=== PATIENT | male | born 1940 | race Caucasian/White ===

== ENCOUNTER 2019-05-23 15:51 | Inpatient (IN) | payer MEDICARE, OTHER, SELFPAY ==
[2019-05-23] VITALS (33 sets, daily range): BP systolic 142–175; BP diastolic 50–93; PULSE 77–114; RESP 4–30; TEMP 37.1–37.4; O2SAT 91–96
--- NOTE | 2019-05-23 15:56 | ED.GENADUL_ITS ---
Discharge Plan Disposition Condition: Stable Discharge Details Chief Complaint: SOB Admit Date/Time: 05/23/19 17:57 Admit Provider: Bruce Henriquez Attending Provider: Sarina Harris Primary Care Provider: Josiah Alamo ED Provider: Maile Villavicencio Discharge Instructions Activity:: Activity as Tolerated Equipment/Supplies:: No Equipment Needed Diet:: Low Sodium Discharge Orders Discharge Orders: Discharge Order (Routine); Ordered 05/26/19 Ordered By: Sarina Harris Discharge Data Discharge Date/Time-TO BE ENTERED AT DEPARTURE: 05/23/19 18:59 Medical Decision Making Patient is a pleasant 78-year-old male with past medical history of alcohol abuse, BPH, COPD, hypertension, hypercholesterolemia, accompanied by and daughter, with chief complaint of shortness of breath. Patient has had cough and congestion x4 days. States the cough is particularly worse at night. Reports last night she he had some mild shortness of breath. However, he woke this morning feeling severely short of breath and this persisted throughout the course the day. He states that he has not been able to get out of his chair throughout the course the day secondary to the shortness of breath. Pursed lip breathing when came in today. Denies any fevers. No chills. Denies any GI upset. No congestion or other URI symptoms. No recent travel. No known sick contacts. Denies any chest pain. ECG reviewed by Dr. Odom. Patient in sinus tachycardia with rate of 109. Oaccassional premature ventricular contractions. ST depression less than 1 mm in V5 and V4. No previous for comparison. On exam, patient is an obese male. He has diffuse expiratory wheezing and has diminished airflow in the bilateral lung bases. He has a cough that is progressive and worsening, I am concerned for pneumonia and with the shortness of breath and wheezing, I am concerned for COPD exacerbation worsening symptoms. Plan for chest x-ray, laboratory evaluation. We will begin the patient steroids and give nebulizer treatment. Patient does feel slightly improved after nebulizer. He is received 125 mg of Solu-Medrol. Labs reviewed. Patient is awake 18.7. Troponin is within normal limits. BNP is within normal limits. X-ray reviewed by myself, I am concerned for right- sided pneumonia. Discussed disposition with the patient and his family. Given the level of weakness shortness of breath the patient's been experiencing at home, they did not feel that he is a candidate to be able to be discharged home at this time. Plan to consult with hospitalist regarding admission for COPD exacerbation and acute pneumonia. Patient is receiving IV Levaquin. He is allergic to penicillin. Hospitalist agrees to admission. Discussed this plan with patient and family, they are in agreement HPI General Mode of arrival: wheelchair . Date/Time Provider Initiated Documentation: 05/23/19 15:56 . Limitations to Documentation: no limitations . Information obtained by: patient, family ( and daughter) and RN notes reviewed . History of Present Illness 78 year old M presents to the emergency department with the chief complaint of SOB, described as moderate, Patient started experiencing this day(s) and it has been constant. Immobilization improves symptom(s), Movement worsens symptoms (reports SOB worse with exertion) . Patient notes cough (x 4 days), malaise, shortness of breath and weakness (generalized, difficulty getting around their home); denies chest pain, diaphoresis, fever/chills, headaches, loss of appetite and nausea/vomiting. Patient did receive the following treatments prior to arrival, none Related Data Home Medications Medication Instructions Recorded Confirmed Centrum Silver Tablet 1 tab PO DAILY 08/21/12 05/23/19 albuterol sulfate [ProAir HFA] 2 puff INHALATION QID PRN #3 ea 12/03/17 05/23/19 amlodipine 5 mg tablet 5 mg PO DAILY #90 tab-cap 10/31/18 05/23/19 cholecalciferol (vitamin D3) 10 400 unit PO DAILY 10/31/18 05/23/19 mcg (400 unit) tablet albuterol sulfate 1.25 mg/3 mL 1.25 mg INHALATION QID PRN #90 ml 12/05/18 05/23/19 solution for nebulization fluticasone propionate 230 2 puff INHALATION BID #12 gm 04/29/19 05/23/19 mcg-salmeterol 21 mcg/actuation HFA inhaler Atrovent HFA 2 puff INHALATION QID #3 inhaler 05/26/19 05/23/19 benzonatate 100 mg PO TID PRN PRN #30 cap 05/26/19 cyanocobalamin (vitamin B-12) 500 mcg PO DAILY #30 tab 01/06/20 [Vitamin B-12] guaifenesin [Mucinex] 600 mg PO BID PRN PRN #20 tab 05/26/19 ipratropium-albuterol 3 ml UPD Q4H PRN PRN #90 ml 05/26/19 levofloxacin 750 mg PO DAILY #4 tab 05/26/19 pantoprazole 40 mg PO DAILY@0730 #10 tab 05/26/19 prednisone See Rx Instructions .ROUTE 05/26/19 .COMPLEX #10 tab Previous Rx's Medication Instructions Recorded amlodipine 5 mg tablet 5 mg PO DAILY #90 tab-cap 10/31/18 albuterol sulfate 1.25 mg/3 mL 1.25 mg INHALATION QID PRN #90 ml 12/05/18 solution for nebulization fluticasone propionate 230 2 puff INHALATION BID #12 gm 04/29/19 mcg-salmeterol 21 mcg/actuation HFA inhaler Atrovent HFA 2 puff INHALATION QID #3 inhaler 05/26/19 benzonatate 100 mg PO TID PRN PRN #30 cap 05/26/19 cyanocobalamin (vitamin B-12) 500 mcg PO DAILY #30 tab 05/26/19 [Vitamin B-12] guaifenesin [Mucinex] 600 mg PO BID PRN PRN #20 tab 05/26/19 ipratropium-albuterol 3 ml UPD Q4H PRN PRN #90 ml 05/26/19 levofloxacin 750 mg PO DAILY #4 tab 05/26/19 pantoprazole 40 mg PO DAILY@0730 #10 tab 05/26/19 prednisone See Rx Instructions .ROUTE 05/26/19 .COMPLEX #10 tab Allergies Allergy/AdvReac Type Severity Reaction Status Date / Time Penicillins Allergy Unknown Unverified 05/23/19 16:11 venom-honey bee Allergy Unknown Unverified 05/23/19 16:11 hydrochlorothiazide AdvReac Intermediate Cough Unverified 05/23/19 16:11 DOG DANDER Allergy Unknown Uncoded 05/23/19 16:11 DUST Allergy Unknown Uncoded 05/23/19 16:11 Review of Systems Constitutional Constitutional: Reports as per HPI, Denies chills, Denies fever(s), Denies headache(s), Denies lethargy, Denies poor appetite and Reports weakness Eyes Eyes: Denies change in vision ENT Ears, Nose, Mouth, and Throat: Denies dizziness and Denies headache(s) Cardiovascular Cardiovascular: Reports as per HPI, Denies chest pain, Denies chest pain at rest, Denies chest pain with activity, Denies leg edema, Denies lightheadedness, Denies radiating jaw, neck or arm pain, Denies palpitations, Reports dyspnea and Reports dyspnea on exertion Respiratory Respiratory: Reports as per HPI, Denies chest congestion, Reports cough, Denies hemoptysis, Denies pain on inspiration, Denies pain with cough, Reports dyspnea, Reports dyspnea on exertion and Denies wheezing Gastrointestinal Gastrointestinal: Reports as per HPI, Denies abdominal pain, Denies diarrhea, Denies nausea and Denies vomiting Genitourinary Genitourinary: Denies system reviewed and no additional complaints, except as docu (denies change in urinary habits) Musculoskeletal Musculoskeletal: Reports as per HPI and Denies back pain Integumentary/Breasts Skin/Breast: Reports as per HPI and Denies rash Neurologic Neurologic: Reports as per HPI, Denies dizziness, Denies headache(s) and Reports weakness Endocrine Endocrine: Denies palpitations Allergic/Immunologic Allergic/Immunologic: Denies wheezing PFSH Medical History BPH loc w/o ur obs/LUTS (Acute 09/24/15) Cataract (Acute 01/23/14) Chronic obstructive lung disease (Acute) ASTHMA/COPD Essential hypertension (Acute 03/20/13) Hemorrhoids (Inactive) Hypercholesterolemia (Acute) Osteoarthritis (Acute) BILATERAL HIP Sexual function problem (Acute) Surgical History Colonoscopy - MAC (~1999) NEG Extraction of cataract 01/23/14; DR. UGARTE; RIGHT Family History Mother Personal history of malignant neoplasm INTESTINAL Father Diabetes Essential hypertension Heart disease Sister Personal history of malignant neoplasm BRAIN Brother No problems noted. Social History Smoking/Tobacco Use Status: Former Tobacco Use Drug use: Never Substance use type: does not use Details: had flu shot for [id number] season feb/nov Do you feel safe at home: Yes Do you feel safe in your relationship?: Yes Exam Const General: cooperative, healthy appearing, comfortable, no acute distress and well developed Nutritional Appearance: well nourished and overweight Orientation: alert, awake and oriented x3 [facility] Head: normal to inspection Ears: hearing grossly normal bilaterally Mouth: moist mucous membranes Chest Chest: normal inspection of the chest, normal palpation of entire chest wall and no crepitus Resp Effort & Inspection: normal respiratory effort, able to speak in complete sentences, pursed lip breathing, no respiratory distress and tachypneic Auscultation: clear to auscultation bilaterally, no rales, no rhonchi and no wheezes Cardio Rate: regular rate Rhythm: regular rhythm Heart Sounds: S1 normal and S2 normal GI Inspection: normal to inspection, no edema and non-distended Palpation: soft, no hepatosplenomegaly, not firm, no guarding, not rigid and nontender Auscultation: normal bowel sounds Back/Spine/Pelvis Back: no CVA tenderness Thoracic/Lumbar Spine: thoracic and lumbar spine normal to inspection Skin General skin exam: no rashes or lesions noted Trauma: no lacerations or abrasions Neuro General: alert, awake and oriented x3 Cognition: normal cognition Speech: speech normal Gait: normal gait Extrem General: normal to inspection, normal capillary refill, no pedal edema, no calf tenderness and normal gait Psych Appearance: grossly normal and well kempt Mental Status: mental status grossly normal Speech and Movement: speech and movement normal
[2019-05-23] MEDS: Albuterol/Ipratropium 3 ML UPD VIAL UPD ×2 (16:13→23:40)
[2019-05-23 16:25] LABS: Abs Immature Grans 0.06 k/cumm (0.0-0.09); Absolute Basophil Count 0.04 k/cumm (0.0-0.2); Absolute Eosinophil Count 0.17 k/cumm (0.0-0.7); Absolute Neutrophil Count 15.87 k/cumm (1.2-6.7); Basophils % 0.2; Eosinophils % 0.9; HCT 45.9 % (40.0-50.0); HGB 15.6 g/dL (13.5-17.5); Immature Grans % 0.3 %; Lymphocytes % 7.9; Mean Corpuscular Hemoglobin 31.4 pg (27.0-33.0); Mean Corpuscular Volume 92.4 fL (80-95); Mean Platelet Volume 9.6 fL (8.0-11.0); Monocytes % 5.9; Neutrophils % 84.8; Platelet Count 182 x1000/uL (130-400); RBC 4.97 m/cumm (4.50-6.00); RBC Distribution Width 13.6 % (11.8-14.1); White Blood Cell Count 18.71 k/cumm (4.4-10.8)
[2019-05-23 16:26] LABS: Absolute Lymphocyte Count 1.48 k/cumm (1.2-3.4)
[2019-05-23] MEDS: methylPREDNISolone SUCC 125 MG VIAL IVP (16:30)
[2019-05-23] MEDS: Normal Saline Flush 10 ML SYR IVP ×2 (16:32→23:40)
[2019-05-23] MEDS: levoFLOXacin 750 MG/150 ML BAG 100 MG IVPB (16:35)
[2019-05-23 16:39] LABS: ALT 25 U/L (16-63); AST 19 U/L (15-37); Albumin 3.6 g/dL (3.4-5.0); Alkaline Phosphatase 60 U/L (46-116); Anion Gap 9.5 mmol/L (3-11); BUN 10 mg/dL (7-18); Bilirubin, Total 0.6 mg/dL (0.2-1.0); CO2 28.5 mmol/L (21.0-32.0); CREATININE 0.77 mg/dL (0.70-1.30); Calcium 9.2 mg/dL (8.5-10.1); Chloride 102 mmol/L (98-107); Glucose 114 mg/dL (74-106); Magnesium 1.8 mg/dL (1.8-2.4); Potassium 3.6 mmol/L (3.5-5.1); Sodium 140 mmol/L (136-145); Total Protein 7.8 g/dL (6.4-8.2)
[2019-05-23 16:40] LABS: Troponin I < 0.05 ng/Ml (<0.06)
[2019-05-23 16:58] LABS: Lactate 1.3 mmol/L (0.6-1.4)
[2019-05-23 16:58] LABS: NT-proBNP 162 pg/mL (<300)
--- NOTE | 2019-05-23 17:03 | DI.RAD_ITS ---
EXAM: XR CHEST 2V PA LATERAL INDICATION: SOB. COMPARISON: CHEST WITHOUT CONTRAST from 09/16/2017 CHEST 2 VIEWS PA,LAT from 09/16/2017 CHEST WITH CONTRAST from 11/26/2017 TECHNIQUE: 2D digital imaging was performed. FINDINGS: Linear densities are noted at both lung bases which could represent atelectasis or scarring versus in filtrates. No effusions are seen. The heart size is normal. IMPRESSION: Bibasilar atelectasis versus infiltrates.
--- NOTE | 2019-05-23 17:40 | DI.VRAD_ITS ---
PROCEDURE INFORMATION: Exam: XR Chest, 2 Views Exam date and time: 05/23/2019 5:08 PM Age: 78 years old Clinical indication: Other: SOB TECHNIQUE: Imaging protocol: XR of the chest Views: 2 views. COMPARISON: CR CHEST 2 VIEWS PA,LAT 09/16/2017 2:51 PM FINDINGS: Lungs: Opacities in the bases may represent atelectasis or pneumonia. Pleural space: Unremarkable. No pleural effusion. No pneumothorax. Heart/Mediastinum: Unremarkable. No cardiomegaly. Bones/joints: Unremarkable. IMPRESSION: Opacities in the bases may represent atelectasis or pneumonia. Dictated and Authenticated by: Bartolome Gill MD. Ordering:DEBORAH Gr MD
--- NOTE | 2019-05-23 17:49 | W.PM.HP.N ---
Date of service: 05/23/19 Time of Service: 17:49 Assessment and Plan Assessment and plan (1) Pneumonia: Status: Acute Assessment and plan: Pneumonia with COPD exacerbation. Will continue antibiotics, steroids and updrafts. usual meds as is otherwise. Reviewed ADs, requests DNR/DNI. History of Present Illness History of Present Illness Chief Complaint: cough, SOB Narrative: 78 male with h/o COPD, former smoker, comes in with 3-4 days cough and 1-2 days SOB. In ER wheezing and tachypnea noted, along with leukocytosis and RLL pneumonitis. Given steroids, updrafts and levaquin 750 IV. States he feels much better, but still far from usual. Admitted for further management. Review of Systems All systems reviewed & are unremarkable except as noted in HPI and below PFSH Medical History Hemorrhoids (Inactive) Surgical History Colonoscopy - MAC (~1999) NEG Extraction of cataract 01/23/14; DR. UGARTE; RIGHT Family History Mother Personal history of malignant neoplasm INTESTINAL Father Diabetes Essential hypertension Heart disease Sister Personal history of malignant neoplasm BRAIN Brother No problems noted. Social History Smoking/Tobacco Use Status: Former Tobacco Use Drug use: Never Substance use type: does not use Details: had flu shot for [id number] season feb/mar Do you feel safe at home: Yes Do you feel safe in your relationship?: Yes Meds Home Medications and Allergies Home Medications Medication Instructions Recorded Confirmed Type Centrum Silver Tablet 1 tab PO DAILY 08/21/12 05/23/19 History albuterol sulfate [Proair Hfa] 2 puff INHALATION QID PRN #3 ea 12/03/17 05/23/19 History ipratropium bromide 17 2 puff INHALATION QID #3 inhaler 02/05/18 05/23/19 Rx mcg/actuation HFA aerosol inhaler amlodipine 5 mg tablet 5 mg PO DAILY #90 tab-cap 10/31/18 05/23/19 Rx cholecalciferol (vitamin D3) 10 400 unit PO DAILY 10/31/18 05/23/19 History mcg (400 unit) tablet albuterol sulfate 1.25 mg/3 mL 1.25 mg INHALATION QID PRN #90 ml 12/05/18 05/23/19 Rx solution for nebulization tiotropium bromide 18 mcg capsule 1 cap IH DAILY #360 inh 12/27/18 05/23/19 Rx with inhalation device fluticasone propionate 230 2 puff INHALATION BID #12 gm 04/29/19 05/23/19 Rx mcg-salmeterol 21 mcg/actuation HFA inhaler Allergies Allergy/AdvReac Type Severity Reaction Status Date / Time Penicillins Allergy Unknown Unverified 05/23/19 16:11 venom-honey bee Allergy Unknown Unverified 05/23/19 16:11 hydrochlorothiazide AdvReac Intermediate Cough Unverified 05/23/19 16:11 DOG DANDER Allergy Unknown Uncoded 05/23/19 16:11 DUST Allergy Unknown Uncoded 05/23/19 16:11 Exam Narrative Exam Narrative: 152/74, 10, 221, 37.3. 93% RA. HEENT AT/NC; neck supple; lungs more or less diffuse wheeze, no focal rales; heeart distnat but tacchy and regular; abdomen soft and NT; /rectal deferred; extremities w/o edema; neuro Ox3, non-focal Results Labs Result diagrams: 05/23/19 16:05 05/23/19 16:05 Labs: Laboratory Results - last 24 hr 05/23/19 05/23/19 05/23/19 16:05 16:05 16:45 WBC 18.71 H RBC 4.97 Hgb 15.6 Hct 45.9 MCV 92.4 MCH 31.4 MCHC 34.0 RDW 13.6 Plt Count 182 MPV 9.6 Immature Gran % 0.3 Neutrophils % 84.8 Lymphocytes % 7.9 Monocytes % 5.9 Eosinophils % 0.9 Basophils % 0.2 Absolute Neutrophils 15.87 H Absolute Lymphocytes 1.48 Absolute Monocytes 1.10 H Absolute Eosinophils 0.17 Absolute Basophils 0.04 Sodium 140 Potassium 3.6 Chloride 102 Carbon Dioxide 28.5 Anion Gap 9.5 BUN 10 Creatinine 0.77 Estimated GFR/1.73 m2 >= 60.00 Glucose 114 H Lactate 1.3 Calcium 9.2 Magnesium 1.8 Total Bilirubin 0.6 AST 19 ALT 25 Alkaline Phosphatase 60 Troponin I < 0.05 NT-Pro-B Natriuret Pep 162 Total Protein 7.8 Albumin 3.6 Last Vital Signs Temp 37.3 C 05/23/19 17:21 Pulse 110 H 05/23/19 17:21 Resp 21 05/23/19 17:21 BP 152/74 H 05/23/19 17:21 Pulse Ox 93 L 05/23/19 17:21
[2019-05-23] MEDS: methylPREDNISolone SUCC 40 MG VIAL IVP (23:40)
[2019-05-24] VITALS (7 sets, daily range): BP systolic 122–146; BP diastolic 67–76; PULSE 101–123; RESP 4–19; TEMP 37–37.5; O2SAT 90–95
[2019-05-24] MEDS: Albuterol/Ipratropium 3 ML UPD VIAL UPD ×3 (06:11→17:55)
[2019-05-24 06:44] LABS: HCT 44.9 % (40.0-50.0); HGB 15.3 g/dL (13.5-17.5); Mean Corp. HGB Concentration 34.1 g/dL (32.0-36.0); Mean Corpuscular Hemoglobin 31.2 pg (27.0-33.0); Mean Corpuscular Volume 91.6 fL (80-95); Mean Platelet Volume 10.2 fL (8.0-11.0); Platelet Count 208 x1000/uL (130-400); RBC Distribution Width 13.3 % (11.8-14.1); White Blood Cell Count 16.69 k/cumm (4.4-10.8)
--- NOTE | 2019-05-24 07:51 | PHARADMIT ---
Admission Pharmacy Clinical Review PNEUMONIA, COPD Code Status DNR/DNI Current Weight WgT-108.1 kg Renally Cleared and Narrow Therapeutic Index Meds SCr-71 mL/min Meds-OK QTc Value / Action Taken QTc-425 na BP Control, Fever BP-145/75 Tmax- 37.1C Electrolytes reviewed Na-140 K+3.6 Mag-1.8 DVT Prophylaxis NONE Opiate Usage / Scheduled Bowel Regimen Ordered NO NO Plt/SCr for Heparin / Enoxaparin Plts-208 SCr-0.77 INR for Warfarin NA H/H stable, WBC/Bands H&H-15./44.9 WBC-16.69 Antibiotic appropriateness Levaquin Cultures and Sensitivities NONE Surgical ABX d/c within 24 hr NA DM control / Insulin Dosing BG- 114 Heart Failure (Check EF%) (LUL's, B-Block, Diuretics) Norvasc IV to PO Switch No Home Meds Reviewed Yes Home Meds Not Ordered Vit-D, Centrum, Spiriva Comments
[2019-05-24] MEDS: methylPREDNISolone SUCC 40 MG VIAL IVP ×2 (09:01→17:45)
[2019-05-24] MEDS: Normal Saline Flush 10 ML SYR IVP (09:02)
[2019-05-24] MEDS: amLODIPine 5 MG TAB PO (09:02)
--- NOTE | 2019-05-24 09:54 | PDOC.CMIN ---
- If Service Date Differs Date of service: 05/24/19 Time of Service: 09:54 Care Management Initial Assess REASON FOR HOSPITALIZATION:: RLL pneumonia PAST MEDICAL HISTORY/PAST SURGICAL HISTORY:: COPD, hypertension, dyslipidemia, BPH, osteoarthritis ETOH use PREVIOUS FUNCTIONAL STATUS/SOCIAL/FAMILY SUPPORTS:: Dagoberto lives in his own home with his spouse Cora in [place]. He is independent with ADLs he drives his own car. Dagoberto has 3 adult children 2 sons and a daughter they all live local. Kit describes his family as supportive. Dagoberto was in the [employer] for 4 years and then in the [employer] for another 24 years. 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 CURRENT FUNCTIONAL STATUS:: Dagoberto is alert and enaged during assessment. He reports that this illness started about two weeks ago with a large amount of nasal drainage. He reports he conitnued not to feel good and came to the hospital for treatment. Dagoberto family is present and supportive. ADVANCE DIRECTIVES:: None on file, would like to complete with CM during admission Has patient been provided with information about the portal?: Yes Did the patient sign up for the portal?: No INSURANCE COVERAGE / FINANCIAL ISSUES:: Medicare and CURRENT HOME/COMMUNITY SERVICES/EQUIPMENT:: None at this time PRIMARY CARE PHYSICIAN:: PATIENT/FAMILY EDUCATION NEEDS:: Discharge education, limitations and follow up plan of care including ask me three and self management. ANTICIPATED BARRIERS TO DISCHARGE:: None TRANSPORTATION:: Via private car with spouse at time of discharge. PLAN:: Dagoberto remains acute at this [facility], he will be discharged when medically ready, Anticipate no additional services at time of discharge. CM to continue to provide support and goal to complete advance directive during admission.
[2019-05-24] MEDS: Budesonide/Formoterol 160/4.5 6 GM 60 PUFF INH IH ×2 (11:15→20:41)
[2019-05-24] MEDS: THIAMINE 100 MG in Normal Saline 100 ML 200 MG IVPB (11:42)
[2019-05-24] MEDS: Enoxaparin 40 MG/0.4 ML SYR SC (11:44)
[2019-05-24] MEDS: guaiFENesin 600 MG TABCR PO ×2 (11:44→20:40)
[2019-05-24] MEDS: Pantoprazole 40 MG TABCR PO (11:44)
[2019-05-24 12:04] LABS: Lactate 2.6 mmol/L (0.6-1.4)
[2019-05-24 12:24] LABS: Procalcitonin 0.3 ng/mL
[2019-05-24] MEDS: Benzonatate 100 MG CAP PO ×2 (13:40→20:40)
--- NOTE | 2019-05-24 14:00 | W.PM.PROGNOT ---
Date of Service Date of service: 05/24/19 Time of Service: 14:00 Assessment and Plan Assessment and plan (1) Right lower lobe pneumonia: Status: Acute Assessment and plan: CAP. Based on patient's answers, risk of aspiration pneumonia is low. Continue levofloxacin. Obtain sputum culture, urine strep/legionella, sputum mycoplasma. Monitor lactate. Hydrate intravenously. (2) Acute exacerbation of chronic obstructive pulmonary disease (COPD): Status: Acute Assessment and plan: Continue IV steroids, nebs, symbicort. (3) Essential hypertension: Status: Acute Assessment and plan: Continue amlodipine. (4) Osteoarthritis: Status: Acute Assessment and plan: prn tylenol. PT consult placed. (5) DVT prophylaxis: Status: Acute Assessment and plan: enoxaparin SC (6) Discharge planning issues: Status: Acute Assessment and plan: DNR/DNI Subjective Subjective Interval history since last seen: Mr May states his breathing is a little better. Continues to have wheezing (better) and productive cough (yellow sputum, also better). Endorses dizziness if he tries to get up too quickly. Denies chest pain, nausea, vomiting. Denies drinking more than 1-2 beers/week, and his and daughter in the room also agree with that. He states he does not have symptoms of reflux and has not been waking up with food in the back of his mouth. Denies difficulty swallowing or choking spells. Exam Narrative Exam Narrative: General: Very pleasant elderly male, looks much younger than his stated age, A&Ox3, laying comfortably in bed, raspy voice HEENT: EOMI, dry MM Heart: RRR, mildly tachycardic right after nebs, no m/r/g Lungs: expiratory wheezing B, especially at bases Abdomen: soft, nontender, nondistended Extremities: no e/c/c BLE's Objective Objective Clinical Data: Abnormal lab results 05/23/19 05/23/19 05/24/19 Range/Units 16:05 16:05 06:18 WBC 18.71 H 16.69 H (4.4-10.8) k/cumm Absolute Neutrophils 15.87 H (1.2-6.7) k/cumm Absolute Monocytes 1.10 H (0.11-0.7) k/cumm Glucose 114 H (74-106) mg/dL Lactate (0.6-1.4) mmol/L 05/24/19 Range/Units 11:05 WBC (4.4-10.8) k/cumm Absolute Neutrophils (1.2-6.7) k/cumm Absolute Monocytes (0.11-0.7) k/cumm Glucose (74-106) mg/dL Lactate 2.6 H* (0.6-1.4) mmol/L Vital Signs Temperature 37.5 C 05/24/19 07:30 Temperature Source Tympanic 05/24/19 07:30 Pulse 113 H 05/24/19 07:30 Pulse Rhythm Regular 05/24/19 08:45 Pulse 110 H 05/23/19 18:40 Respiratory Rate 18 05/24/19 07:30 Respiratory Effort Non-Labored 05/24/19 08:45 Respiratory Depth Normal 05/24/19 08:45 Respiratory Pattern Normal 05/24/19 08:45 Blood Pressure 131/76 05/24/19 07:30 Blood Pressure Mean 96 05/23/19 18:31 Pulse Oximetry 92 L 05/24/19 08:45 Oxygen Delivery Method Room Air 05/24/19 08:45 Oxygen Flow Rate 0 05/24/19 08:45 Pain Level 0 05/24/19 07:30 Intake & Output 05/23/19 05/24/19 05/24/19 23:59 11:59 23:59 Intake Total 150 / 150 2129 / 2129 Balance 150 / 150 2129 / 2129 Weight 108.1 kg Intake: IV 150 / 150 Oral 2129 Other: Urine Appearance Clear Clear Laboratory Results WBC 16.69 k/cumm (4.4-10.8) H 05/24/19 06:18 RBC 4.90 m/cumm (4.50-6.00) 05/24/19 06:18 Hgb 15.3 g/dL (13.5-17.5) 05/24/19 06:18 Hct 44.9 % (40.0-50.0) 05/24/19 06:18 MCV 91.6 fL (80-95) 05/24/19 06:18 MCH 31.2 pg (27.0-33.0) 05/24/19 06:18 MCHC 34.1 g/dL (32.0-36.0) 05/24/19 06:18 RDW 13.3 % (11.8-14.1) 05/24/19 06:18 Plt Count 208 x1000/uL (130-400) 05/24/19 06:18 MPV 10.2 fL (8.0-11.0) 05/24/19 06:18 Immature Gran % 0.3 % 05/23/19 16:05 Neutrophils % 84.8 05/23/19 16:05 Lymphocytes % 7.9 05/23/19 16:05 Monocytes % 5.9 05/23/19 16:05 Eosinophils % 0.9 05/23/19 16:05 Basophils % 0.2 05/23/19 16:05 Absolute Neutrophils 15.87 k/cumm (1.2-6.7) H 05/23/19 16:05 Absolute Lymphocytes 1.48 k/cumm (1.2-3.4) 05/23/19 16:05 Absolute Monocytes 1.10 k/cumm (0.11-0.7) H 05/23/19 16:05 Absolute Eosinophils 0.17 k/cumm (0.0-0.7) 05/23/19 16:05 Absolute Basophils 0.04 k/cumm (0.0-0.2) 05/23/19 16:05 Sodium 140 mmol/L (136-145) 05/23/19 16:05 Potassium 3.6 mmol/L (3.5-5.1) 05/23/19 16:05 Chloride 102 mmol/L (98-107) 05/23/19 16:05 Carbon Dioxide 28.5 mmol/L (21.0-32.0) 05/23/19 16:05 Anion Gap 9.5 mmol/L (3-11) 05/23/19 16:05 BUN 10 mg/dL (7-18) 05/23/19 16:05 Creatinine 0.77 mg/dL (0.70-1.30) 05/23/19 16:05 Estimated GFR/1.73 m2 >= 60.00 (mL/min/1.73m2) 05/23/19 16:05 Glucose 114 mg/dL (74-106) H 05/23/19 16:05 Lactate 2.6 mmol/L (0.6-1.4) H* 01/04/20 11:05 Calcium 9.2 mg/dL (8.5-10.1) 05/23/19 16:05 Magnesium 1.8 mg/dL (1.8-2.4) 05/23/19 16:05 Total Bilirubin 0.6 mg/dL (0.2-1.0) 05/23/19 16:05 AST 19 U/L (15-37) 05/23/19 16:05 ALT 25 U/L (16-63) 05/23/19 16:05 Alkaline Phosphatase 60 U/L (46-116) 05/23/19 16:05 Troponin I Cancelled 05/23/19 18:59 NT-Pro-B Natriuret Pep 162 pg/mL (<300) 05/23/19 16:05 Total Protein 7.8 g/dL (6.4-8.2) 05/23/19 16:05 Albumin 3.6 g/dL (3.4-5.0) 05/23/19 16:05 Procalcitonin 0.3 ng/mL 05/24/19 11:05
[2019-05-24 14:21] LABS: Lactate 2.5 mmol/L (0.6-1.4)
[2019-05-24] MEDS: Normal Saline 1,000 ML 125 ML IV (15:19)
[2019-05-24] MEDS: levoFLOXacin 750 MG/150 ML BAG 100 MG IVPB (15:20)
[2019-05-24 17:15] LABS: Lactate 2.2 mmol/L (0.6-1.4)
[2019-05-25] VITALS (7 sets, daily range): BP systolic 132–157; BP diastolic 74–77; PULSE 89–118; RESP 1–20; TEMP 36.1–37.2; O2SAT 90–98
[2019-05-25] MEDS: Albuterol/Ipratropium 3 ML UPD VIAL UPD ×5 (00:55→23:44)
[2019-05-25] MEDS: Normal Saline 1,000 ML 125 ML IV ×2 (00:55→08:17)
[2019-05-25] MEDS: Normal Saline Flush 10 ML SYR IVP ×2 (00:56→20:52)
[2019-05-25] MEDS: methylPREDNISolone SUCC 40 MG VIAL IVP ×2 (00:56→08:14)
[2019-05-25 06:58] LABS: Abs Immature Grans 0.06 k/cumm (0.0-0.09); Absolute Neutrophil Count 14.82 k/cumm (1.2-6.7); Basophils % 0.1; HCT 40.2 % (40.0-50.0); HGB 13.9 g/dL (13.5-17.5); Immature Grans % 0.4 %; Mean Corp. HGB Concentration 34.6 g/dL (32.0-36.0); Mean Corpuscular Volume 92.6 fL (80-95); Mean Platelet Volume 10.8 fL (8.0-11.0); Neutrophils % 91.5; Platelet Count 168 x1000/uL (130-400); RBC 4.34 m/cumm (4.50-6.00); RBC Distribution Width 13.3 % (11.8-14.1)
[2019-05-25 07:00] LABS: Absolute Basophil Count 0.02 k/cumm (0.0-0.2); Absolute Lymphocyte Count 0.97 k/cumm (1.2-3.4); Absolute Monocyte Count 0.32 k/cumm (0.11-0.7)
[2019-05-25 07:29] LABS: Procalcitonin 0.3 ng/mL
[2019-05-25 07:34] LABS: Anion Gap 7.8 mmol/L (3-11); BUN 20 mg/dL (7-18); CO2 27.2 mmol/L (21.0-32.0); CREATININE 0.88 mg/dL (0.70-1.30); Calcium 8.9 mg/dL (8.5-10.1); Chloride 108 mmol/L (98-107); Glucose 238 mg/dL (74-106); Magnesium 1.9 mg/dL (1.8-2.4); Potassium 4.4 mmol/L (3.5-5.1); Sodium 143 mmol/L (136-145); Vitamin B12 507 pg/mL (193-986)
[2019-05-25] MEDS: Budesonide/Formoterol 160/4.5 6 GM 60 PUFF INH IH ×2 (08:04→20:52)
[2019-05-25] MEDS: Benzonatate 100 MG CAP PO ×3 (08:14→20:53)
[2019-05-25] MEDS: Pantoprazole 40 MG TABCR PO (08:15)
[2019-05-25] MEDS: guaiFENesin 600 MG TABCR PO ×2 (08:15→20:53)
[2019-05-25] MEDS: amLODIPine 5 MG TAB PO (08:16)
--- NOTE | 2019-05-25 09:18 | IN_ITS ---
Date of service: 05/25/19 Time of Service: 08:45 PT Notes Visit Reasons: PNEUMONIA, COPD Inpatient Physical Therapy Evaluation Date: 05/25/2019 Referring Doctor: Dr. Harris PT Orders: PT CONSULT: limited ability to ambulate Precautions: standard Patient Profile/Admitting Diagnosis: Patient admitted 05/23/2019 for medical management of pneumonia, COPD exacerbation. PMHX: COPD, hypertension, dyslipidemia, BPH, osteoarthritis ETOH use Social History/Home Situation: Patient lives independently with his Cora. He drives independently and reports a relatively active lifestyle. He and his winter in [place], and he reports that they were supposed to leave today. Typically reside in [place] until August, then return to [place] for the summer. Patient states that he walks for exercise in [place], although without any regularity. He does not utilize any assistive device. Equipment Owned/DME: None Subjective: Patient states that he is feeling well. He has been up independently to go back and forth to the bathroom, and states that although he feels generally short of breath, walking does not seem to make it any worse. He is anxious to be able to leave the hospital and return to [place]. Objective: General Observation: Sitting at edge of bed drinking coffee at initiation of session. IV in LUE, otherwise no lines. Mental Status: A and O x3 Pain: 0/10 Vital Signs: SaO2 is 98% on room air at rest. With ambulation he drops to 94%, although without any significant ANDREWS. Heart rate is 114 at rest, 119 with ambulation. ROM: Right Upper Extremity: WFL Left Upper Extremity: WFL Right Lower Extremity: WFL Left Lower Extremity: WFL Strength: Right Upper Extremity: Shoulder flexion 3/5 or greater. Biceps 4+/5. Triceps 4+/5. Shoulder internal rotation 4/5. Shoulder external rotation 4/5. Left Upper Extremity: Shoulder flexion 3/5 or greater. Biceps 4+/5. Triceps 4+/5. Shoulder internal rotation 4/5. Shoulder external rotation 4/5. Right Lower Extremity: Hip flexion 5/5. Quads 5/5. Ankle dorsiflexion 5/5. Left Lower Extremity: Hip flexion 5/5. Quads 5/5. Ankle dorsiflexion 5/5. Bed Mobility/Transfers: Supine?sit: Independent Sit?supine: Independent Sit?stand: Independent Stand?sit: Independent Bed to chair: Independent without assistive device Gait: Patient ambulates 120 feet without assistive device. Vitals were monitored by pulse oximeter throughout. He requires cues for pacing, although does not demonstrate any ataxia or losses of balance. Balance: Static Sitting: Normal Dynamic Sitting: Normal Static Standing: Normal, although maintaining wide DEANNA Dynamic Standing: Good Special Tests: Mobility Limitations Standardized Measure [facility] AM-PAC 6 clicks Basic Mobility Inpatient Short Form: Raw Score: 24 CMS Score: 0% deficit Informed Consent/Education: Patient instructed in purpose of PT consult and plan of care. Treatment: Today's session consisted of evaluation, followed by instruction in a therapeutic exercise program, as noted on flowsheet. Patient was instructed in independent completion of seated exercises to be performed hourly during his hospital stay. Assessment: Patient is a 78 year old male referred to physical therapy services with the diagnosis of limited ability to ambulate. Patient presents with clinical signs and symptoms consistent with diagnosis, related to acute medical issues. He demonstrates good safety and independence today, although with diminished activity tolerance. Patient is also advanced age, and subsequently at high risk for development of deconditioning related to acute hospital stay. He requires skilled PT intervention to maximize mobility and activity tolerance during hospitalization to prevent significant decline. He currently demonstrates the following impairment level findings: 1. Decreased activity tolerance Impairments are contributing to the following functional limitations: 1. Decreased activity tolerance Patient is assessed as a Moderate 03419 complexity based on the following: History: 78-year-old male referred for PT services in acute care setting, where he is being managed for pneumonia and COPD exacerbation. Patient lives independently at an advanced age, and also has chronic medical comorbidities outside of his acute medical issues. Examination: Functional limitations as noted above Presentation: Evolving due to acute medical issues Decision Making: Moderate complexity Goals: Goals X1 week 1. Supine-Sit: independent 2. Sit-Supine: independent 3. Sit-Stand : independent 4. Stand-Sit : independent 5. Bed-Chair: independent 6. Chair-Bed: independent 7. Gait: independent without device x 300' Plan of Care/Treatment Plan: 1/day, 7 days/week x 1 week. Plan of care has been reviewed with the LUGGAGE ATTENDANT providing the service under Physical Therapy direction. Initiate Physical Therapy intervention for strengthening, bed mobility, transfers, gait, stairs, balance training, use of assistive device. DISCHARGE RECOMMENDATIONS: home without anticipated services TREATMENT CODE/TIME: 30 minutes (12958) Genoveva Dutton, PT, DPT [facility]
[2019-05-25] MEDS: Enoxaparin 40 MG/0.4 ML SYR SC (12:46)
--- NOTE | 2019-05-25 15:56 | W.PM.PROGNOT ---
Date of Service Date of service: 05/25/19 Time of Service: 15:56 Assessment and Plan Assessment and plan (1) Right lower lobe pneumonia: Status: Acute Assessment and plan: CAP. Improving. Continue levofloxacin. Change steroids to PO. Continue bronchodilators, symbicort. Anticipate discharge home tomorrow if CXR does not show worsening of disease. (2) Acute exacerbation of chronic obstructive pulmonary disease (COPD): Status: Acute Assessment and plan: Change steroids to PO; continue nebs, symbicort. (3) Essential hypertension: Status: Acute Assessment and plan: Continue amlodipine. D/c IVF. (4) Osteoarthritis: Status: Acute Assessment and plan: prn tylenol. PT consult placed. (5) DVT prophylaxis: Status: Acute Assessment and plan: enoxaparin SC (6) Discharge planning issues: Status: Acute Assessment and plan: DNR/DNI Expected to be discharged home tomorrow Subjective Subjective Interval history since last seen: Mr May states his breathing is better. Frequency of cough is better. Less wheezing. Denies dizziness, chest pain, nausea, vomiting. States that using Vibra Pep has really helped. Exam Narrative Exam Narrative: General: Very pleasant elderly male, sitting up comfortably at the edge of the bed, A&Ox3, no tachypnea/dyspnea HEENT: EOMI, MMM Heart: RRR, mildly tachycardic, no m/r/g Lungs: diminished breath sounds B; no wheezing heard today Abdomen: soft, nontender, nondistended Extremities: trace edema BLE's, no c/c BLE's Objective Objective Clinical Data: Abnormal lab results 05/24/19 05/25/19 05/25/19 Range/Units 17:07 06:35 06:35 WBC 16.20 H (4.4-10.8) k/cumm RBC 4.34 L (4.50-6.00) m/cumm Absolute Neutrophils 14.82 H (1.2-6.7) k/cumm Absolute Lymphocytes 0.97 L (1.2-3.4) k/cumm Chloride 108 H (98-107) mmol/L BUN 20 H D (7-18) mg/dL Glucose 238 H D (74-106) mg/dL Lactate 2.2 H* (0.6-1.4) mmol/L Vital Signs Temperature 37.2 C 05/25/19 15:25 Temperature Source Tympanic 05/25/19 15:25 Pulse 102 H 05/25/19 15:25 Pulse Rhythm Regular 05/25/19 08:05 Pulse 110 H 05/23/19 18:40 Respiratory Rate 18 05/25/19 15:25 Respiratory Effort Non-Labored 05/25/19 08:05 Respiratory Depth Normal 05/25/19 08:05 Respiratory Pattern Normal 05/25/19 08:05 Blood Pressure 157/77 H 05/25/19 15:25 Blood Pressure Mean 96 05/23/19 18:31 Pulse Oximetry 95 05/25/19 15:25 Oxygen Delivery Method Room Air 05/25/19 15:25 Oxygen Flow Rate 0 05/25/19 15:25 Pain Level 0 05/25/19 09:17 Comment 05/25/19 00:01 Intake & Output 05/24/19 05/25/19 05/25/19 23:59 11:59 23:59 Intake Total 1591 / 3721 1320.833 / 1810.833 490 / 1810.833 Balance 1591 / 3721 1320.833 / 1810.833 490 / 1810.833 Weight 108 kg Intake: IV 1101 / 1101 920.833 / 920.833 Oral 490 / 2620 400 / 890 490 / 890 Other: Urine Appearance Clear Clear Laboratory Results WBC 16.20 k/cumm (4.4-10.8) H 05/25/19 06:35 RBC 4.34 m/cumm (4.50-6.00) L 05/25/19 06:35 Hgb 13.9 g/dL (13.5-17.5) 05/25/19 06:35 Hct 40.2 % (40.0-50.0) 05/25/19 06:35 MCV 92.6 fL (80-95) 05/25/19 06:35 MCH 32.0 pg (27.0-33.0) 05/25/19 06:35 MCHC 34.6 g/dL (32.0-36.0) 05/25/19 06:35 RDW 13.3 % (11.8-14.1) 05/25/19 06:35 Plt Count 168 x1000/uL (130-400) 05/25/19 06:35 MPV 10.8 fL (8.0-11.0) 05/25/19 06:35 Immature Gran % 0.4 % 05/25/19 06:35 Neutrophils % 91.5 05/25/19 06:35 Lymphocytes % 6.0 05/25/19 06:35 Monocytes % 2.0 05/25/19 06:35 Eosinophils % 0.0 05/25/19 06:35 Basophils % 0.1 05/25/19 06:35 Absolute Neutrophils 14.82 k/cumm (1.2-6.7) H 05/25/19 06:35 Absolute Lymphocytes 0.97 k/cumm (1.2-3.4) L 05/25/19 06:35 Absolute Monocytes 0.32 k/cumm (0.11-0.7) 05/25/19 06:35 Absolute Eosinophils 0.00 k/cumm (0.0-0.7) 05/25/19 06:35 Absolute Basophils 0.02 k/cumm (0.0-0.2) 05/25/19 06:35 Sodium 143 mmol/L (136-145) 05/25/19 06:35 Potassium 4.4 mmol/L (3.5-5.1) D 05/25/19 06:35 Chloride 108 mmol/L (98-107) H 05/25/19 06:35 Carbon Dioxide 27.2 mmol/L (21.0-32.0) 05/25/19 06:35 Anion Gap 7.8 mmol/L (3-11) 05/25/19 06:35 BUN 20 mg/dL (7-18) H D 05/25/19 06:35 Creatinine 0.88 mg/dL (0.70-1.30) 05/25/19 06:35 Estimated GFR/1.73 m2 >= 60.00 (mL/min/1.73m2) 05/25/19 06:35 Glucose 238 mg/dL (74-106) H D 05/25/19 06:35 Lactate 2.2 mmol/L (0.6-1.4) H* 05/24/19 17:07 Calcium 8.9 mg/dL (8.5-10.1) 05/25/19 06:35 Magnesium 1.9 mg/dL (1.8-2.4) 05/25/19 06:35 Total Bilirubin 0.6 mg/dL (0.2-1.0) 05/23/19 16:05 AST 19 U/L (15-37) 05/23/19 16:05 ALT 25 U/L (16-63) 05/23/19 16:05 Alkaline Phosphatase 60 U/L (46-116) 05/23/19 16:05 Troponin I Cancelled 05/23/19 18:59 NT-Pro-B Natriuret Pep 162 pg/mL (<300) 05/23/19 16:05 Total Protein 7.8 g/dL (6.4-8.2) 05/23/19 16:05 Albumin 3.6 g/dL (3.4-5.0) 05/23/19 16:05 Vitamin B12 507 pg/mL (193-986) 05/25/19 06:35 Procalcitonin 0.3 ng/mL 05/25/19 06:35
[2019-05-25] MEDS: levoFLOXacin 750 MG/150 ML BAG 100 MG IVPB (16:00)
--- NOTE | 2019-05-25 20:07 | PDOC.CMPRO ---
- If Service Date Differs Date of service: 05/25/19 Time of Service: 20:07 Care Management Progress Note S/O:Dagoberto is alert and engaged during assessment he states that he is feeling better. He would like to complete his advance directive during this admission and he was provided a packet to review with his spouse. Per provider he will transition to oral medications and anticipate he is is stable discharge home on Sunday. A:Dagoberto is a 78 year old male admitted with pneumonia and a history of COPD. P:Dagoberto remains acute at this time, he will be discharged when medically ready, Anticipate no additional services at time of discharge. CM to continue to provide support and goal to complete advance directive during admission. Dagoberto will transport home via private car with spouse at time of discharge.
[2019-05-25] MEDS: predniSONE 20 MG TAB 40 MG PO (20:53)
[2019-05-26 00:44] VITALS: BP 149/71; PULSE 88; RESP 20; TEMP 36.3; O2SAT 96
[2019-05-26 05:50] VITALS: PULSE 100; RESP 18; RESP 8; O2SAT 94
[2019-05-26] MEDS: Albuterol/Ipratropium 3 ML UPD VIAL UPD ×2 (05:50→11:56)
--- NOTE | 2019-05-26 06:12 | DI.RAD_ITS ---
EXAM: XR PORTABLE CHEST AP INDICATION: follow up pneumonia. COMPARISON: CHEST 2 VIEWS PA,LAT from 09/16/2017 XR CHEST 2V PA LATERAL from 05/23/2019 XR CHEST 2V PA LATERAL from 05/23/2019 TECHNIQUE: 2D digital imaging was performed. FINDINGS: Heart size is normal. The aorta is mildly tortuous. There are linear densities at both lung bases consistent with atelectasis. No focal infiltrate or effusion is seen. IMPRESSION: Minimal basilar atelectasis.
[2019-05-26 07:28] LABS: Abs Immature Grans 0.11 k/cumm (0.0-0.09); Absolute Lymphocyte Count 1.43 k/cumm (1.2-3.4); Absolute Monocyte Count 0.71 k/cumm (0.11-0.7); Absolute Neutrophil Count 14.14 k/cumm (1.2-6.7); Basophils % 0.1; HCT 41.2 % (40.0-50.0); HGB 14.1 g/dL (13.5-17.5); Immature Grans % 0.7 %; Lymphocytes % 8.7; Mean Corp. HGB Concentration 34.2 g/dL (32.0-36.0); Mean Corpuscular Volume 93.4 fL (80-95); Monocytes % 4.3; Neutrophils % 86.2; Platelet Count 223 x1000/uL (130-400); RBC 4.41 m/cumm (4.50-6.00); RBC Distribution Width 13.5 % (11.8-14.1)
[2019-05-26 07:29] LABS: Absolute Basophil Count 0.02 k/cumm (0.0-0.2)
[2019-05-26 07:37] LABS: BUN 21 mg/dL (7-18); CREATININE 0.89 mg/dL (0.70-1.30); Calcium 9.4 mg/dL (8.5-10.1); Chloride 104 mmol/L (98-107); Glucose 238 mg/dL (74-106); Magnesium 2.1 mg/dL (1.8-2.4); Potassium 4.2 mmol/L (3.5-5.1); Sodium 140 mmol/L (136-145)
[2019-05-26 07:50] VITALS: BP 150/92; PULSE 106; RESP 18; TEMP 36.8; O2SAT 93
[2019-05-26] MEDS: amLODIPine 5 MG TAB PO (08:22)
[2019-05-26] MEDS: Pantoprazole 40 MG TABCR PO (08:31)
[2019-05-26] MEDS: Benzonatate 100 MG CAP PO ×2 (08:31→13:16)
[2019-05-26] MEDS: predniSONE 20 MG TAB 40 MG PO (08:32)
[2019-05-26] MEDS: guaiFENesin 600 MG TABCR PO (08:32)
[2019-05-26] MEDS: Cyanocobalamin 500 MCG TAB PO (08:32)
[2019-05-26 08:38] LABS: Procalcitonin 0.3 ng/mL
[2019-05-26] MEDS: Budesonide/Formoterol 160/4.5 6 GM 60 PUFF INH IH (10:13)
[2019-05-26 11:56] VITALS: PULSE 102; RESP 24; RESP 4; RESP 8; O2SAT 98
[2019-05-26 11:57] VITALS: PULSE 100; PULSE 102; PULSE 112; RESP 20; RESP 24; O2SAT 92; O2SAT 98
[2019-05-26 12:05] VITALS: PULSE 100; RESP 24; RESP 4; RESP 8; O2SAT 100
[2019-05-26] MEDS: Enoxaparin 40 MG/0.4 ML SYR SC (12:36)
--- NOTE | 2019-05-26 13:16 | PT.INTREAT ---
Date of service: 05/26/19 Time of Service: 13:16 PT Notes Visit Reasons: PNEUMONIA, COPD Inpatient Physical Therapy Treatment Note [facility] Date: 05/26/19 SUBJECTIVE: Dagoberto is agreeable to participating in PT. He reports that he has been ambulating within his room and in the hallways, independently. He reports that he feels safe doing so. OBJECTIVE: PAIN: No c/o pain BED MOBILITY/TRANSFERS Supine-sit: I Sit-supine: I Sit-stand: I Stand-sit: I GAIT Assistive Device: No AD Weight bearing: Full Assist: I Distance: 350' Deviation: Quick pace, mild SOB THEREX: Review HEP for global strengthening, patient demonstrates independence and compliance with HEP. STAIRS: Up/down 15x4 and 10x6 using step-over pattern, independently ASSESSMENT: Patient tolerated session well without complaint. He was able to tolerate a progression in gait distance without AD support, independently. He was also able to demonstrate independence with stair training and transfers and bed mobility at this time. PLAN: As per primary PT TREATMENT CODE/TIME: 10 minutes; 32914
--- NOTE | 2019-05-26 13:53 | W.PM.DS.N ---
Date of service: 05/26/19 Time of Service: 13:54 DS: Diagnosis Discharge Diagnosis (1) CAP (community acquired pneumonia): Status: Acute (2) Acute exacerbation of chronic obstructive pulmonary disease (COPD): Status: Acute (3) Essential hypertension: Status: Acute (4) Osteoarthritis: Status: Acute (5) Atelectasis: Status: Acute Discharge Plan Disposition Patient Disposition: HOME Condition: Stable Discharge Details Chief Complaint: SOB Reason For Visit: PNEUMONIA, COPD Admit Date/Time: 05/23/19 17:57 Admit Provider: Bruce Henriquez Attending Provider: Brcue Henriquez Primary Care Provider: [facility] Course: Mr May is an 78 year old male with PMHx of non-oxygen dependent COPD, as well as hypertension, hyperlipidemia, and osteoarthritis, who was admitted to [facility] On 05/23/2018 with acute exacerbation of COPD due to bibasilar pneumonia (CAP). He was treated with intravenous systemic steroids, levofloxacin, as well as nebulizer treatments with significant clinical improvement. He is being discharged home today with 3 more doses of levofloxacin, a short steroid taper, and a prescription for duonebs. His ambulatory pulse ox on room air was 92% at its lowest. He is medically stable for discharge home today. Care for patient as well as completion of discharge summary on day of discharge took 45 minutes. Home Meds and New Rx's Prescriptions: New ipratropium-albuterol 0.5 mg-3 mg(2.5 mg base)/3 mL Solution For Nebulization 3 ml UPD Q4H PRN PRN (Reason: shortness of breath or wheezing) Qty: 90 RF: 0 benzonatate 100 mg Capsule 100 mg PO TID PRN PRN (Reason: cough) Qty: 30 RF: 0 cyanocobalamin (vitamin B-12) [Vitamin B-12] 500 mcg Tablet 500 mcg PO DAILY Qty: 30 RF: 0 guaifenesin [Mucinex] 600 mg Tablet Extended Release 12hr 600 mg PO BID PRN PRN (Reason: cough) Qty: 20 RF: 0 prednisone 20 mg Tablet See Rx Instructions .ROUTE .COMPLEX Qty: 10 RF: 0 pantoprazole 40 mg Tablet,Delayed Release (Dr/Ec) 40 mg PO DAILY@0730 Qty: 10 RF: 0 levofloxacin 750 mg tablet 750 mg PO DAILY Qty: 4 RF: 0 Continued albuterol sulfate 1.25 mg/3 mL solution for nebulization 1.25 mg Inhalation QID PRN (Reason: shortness of breath or wheezing) Qty: 90 RF: 4 cholecalciferol (vitamin D3) 400 unit tablet 400 unit PO DAILY RF: 0 amlodipine 5 mg tablet 5 mg PO DAILY Qty: 90 RF: 4 CENTRUM SILVER TABLET 1 EACH tablet 1 tab PO DAILY RF: 0 albuterol sulfate [ProAir HFA] 8.5 GM HFA aerosol inhaler 2 puff Inhalation QID PRNQty: 3 RF: 4 Advair HFA 230-21 mcg/actuation HFA aerosol inhaler 2 puff Inhalation BID Qty: 12 RF: 4 Atrovent HFA 17 mcg/actuation HFA aerosol inhaler 2 puff Inhalation QID Qty: 3 RF: 4 Discontinued Spiriva with HandiHaler 18 mcg capsule, w/inhalation device 1 cap IH DAILY Qty: 360 RF: 4 Discharge Instructions Instructions: How to Use an Incentive Spirometer (DC), COPD (Chronic Obstructive Pulmonary Disease) (DC), Bacterial Pneumonia (DC) Additional Instructions: Return to the hospital with any fever, bleeding, chest pain, or shortness of breath Stand Alone Forms: Nursing Discharge Form Referrals: Josiah Alamo MD [Primary Care Provider] - (Please call the office on Sunday morning to schedule a follow up appointment to be seen within 2 weeks) Activity:: Activity as Tolerated Equipment/Supplies:: No Equipment Needed Diet:: Low Sodium Discharge Orders Discharge Orders: Discharge Order (Routine); Ordered 05/26/19 Ordered By: Sarina Harris DS: Summary Status at Discharge Functional status at discharge: independent ambulation Overall status at discharge: patient is back to baseline Mental Status: mental status grossly normal Speech and Movement: speech and movement normal Mood: congruent mood Affect: normal affect Exam Narrative Exam Narrative: General: Very pleasant elderly male, sitting up comfortably at the edge of the bed, A&Ox3, no tachypnea/dyspnea HEENT: EOMI, MMM Heart: RRR, mildly tachycardic, no m/r/g Lungs: Quiet rhonchi B Abdomen: soft, nontender, nondistended Extremities: trace edema BLE's, no c/c BLE's Psych Mental Status: mental status grossly normal Speech and Movement: speech and movement normal Mood: congruent mood Affect: normal affect DS: Data Vitals/I&O Vitals and I&O: Vital Signs Temperature 36.8 C 05/26/19 07:50 Temperature Source Tympanic 05/26/19 07:50 Pulse 100 H 05/26/19 12:05 Pulse Rhythm Regular 05/26/19 10:31 Pulse 110 H 05/23/19 18:40 Respiratory Rate 24 05/26/19 12:05 Respiratory Effort Non-Labored 05/26/19 10:31 Respiratory Depth Normal 05/26/19 10:31 Respiratory Pattern Normal 05/26/19 10:31 Blood Pressure 150/92 H 05/26/19 07:50 Blood Pressure Mean 96 05/23/19 18:31 Pulse Oximetry 100 05/26/19 12:05 Oxygen Delivery Method Room Air 05/26/19 11:56 Oxygen Flow Rate 0 05/26/19 11:56 Pain Level 0 05/26/19 07:50 Comment 05/26/19 07:50 Intake & Output 05/25/19 05/26/19 05/26/19 23:59 11:59 23:59 Intake Total 2140 / 3460.833 360 / 610 250 / 610 Balance 2140 / 3460.833 360 / 610 250 / 610 Weight 108.3 kg Intake: IV 1160 / 2080.833 Oral 980 / 1380 360 / 610 250 / 610 Other: Urine Color Yellow Urine Appearance Clear Clear Urine Odor None None Comment voids independently voids independently Voiding Methods Toilet Toilet Data Completed and Pending Completed studies during hospitalization [Text1]: CXR 05/26/2019: Minimal basilar atelectasis. Labs on day of discharge: Labs from last 24 hours 05/26/19 05/26/19 05/26/19 06:50 06:50 06:50 WBC 16.40 H RBC 4.41 L Hgb 14.1 Hct 41.2 MCV 93.4 MCH 32.0 MCHC 34.2 RDW 13.5 Plt Count 223 MPV 10.0 Immature Gran % 0.7 Neutrophils % 86.2 Lymphocytes % 8.7 Monocytes % 4.3 Eosinophils % 0.0 Basophils % 0.1 Absolute Neutrophils 14.14 H Absolute Lymphocytes 1.43 Absolute Monocytes 0.71 H Absolute Eosinophils 0.00 Absolute Basophils 0.02 Sodium 140 Potassium 4.2 Chloride 104 Carbon Dioxide 26.0 Anion Gap 10.0 BUN 21 H Creatinine 0.89 Estimated GFR/1.73 m2 >= 60.00 Glucose 238 H Calcium 9.4 Magnesium 2.1 Procalcitonin 0.3 Preliminary micro results at discharge 05/24/19 11:05 Blood Culture - Preliminary Blood NO GROWTH 48 HOURS 05/24/19 11:05 Blood Culture - Preliminary Blood NO GROWTH 48 HOURS 05/25/19 12:50 Sputum Culture - Preliminary Sputum Normal [facility] Medical History (Updated 05/26/19 @ 14:17 by Sarina Harris MD) BPH loc w/o ur obs/LUTS (Acute 09/24/15) Cataract (Acute 01/23/14) Chronic obstructive lung disease (Acute) ASTHMA/COPD Essential hypertension (Acute 03/20/13) Hemorrhoids (Inactive) Hypercholesterolemia (Acute) Osteoarthritis (Acute) BILATERAL HIP Sexual function problem (Acute) Surgical History Colonoscopy - MAC (~1999) NEG Extraction of cataract 01/23/14; DR. UGARTE; RIGHT Family History Mother Personal history of malignant neoplasm INTESTINAL Father Diabetes Essential hypertension Heart disease Sister Personal history of malignant neoplasm BRAIN Brother No problems noted. Social History Smoking/Tobacco Use Status: Former Tobacco Use Drug use: Never Substance use type: does not use Details: had flu shot for [id number] season feb/mar Do you feel safe at home: Yes Do you feel safe in your relationship?: Yes
--- NOTE | 2019-05-26 14:55 | W.NUTCONSULT ---
Date of service: 05/26/19 Time of Service: 14:56 Nutritional Consult ASSESSMENT: 78 year old male admittted with PNA, COPD. Following regular meal plan with excellent intake. BMI indicates class 2 obesity. Not considered at nutritional risk at this time. MONITORING AND EVALUATION: PO intake and weight trends Time Spent in Nutritional Counseling and Treatment: 0 time spent face to face
[2019-05-26 15:31] LABS: Streptococcus Pneumoniae Ag, U Negative (Negative)
--- NOTE | 2019-05-26 18:02 | PDOC.CMDIS ---
- If Service Date Differs Date of service: 05/26/19 Time of Service: 18:02 LACE Index Scoring Tool - Questions: Length of Stay (in days): 4 - 6 Acuity (Admit via E.D.?): Yes Comorbidities: Chronic Pulmonary Disease E.D. Visits: 1 - Answers: Total Score: 10 Risk of Readmission: High Risk Care Management Discharge Reason for Hospitalization: RLL pneumonia Discharge Plan: Dagoberto will return home with no additional services. CM assisted him with filling out his advance directive, as requested by Dagoberto. CM faxed them to the [facility] and access, and provided Dagoberto with copies. He will follow up with his PCP, as recommended. His will drive him home via private vehicle. Patient/Family Education Needs: Review discharge instructions regarding medications and activity levels, discussion of self care needs including Ask Me Three
--- NOTE | 2019-05-27 11:59 | PT.INDS ---
Date of service: 05/27/19 Time of Service: 11:59 PT Notes Visit Reasons: PNEUMONIA, COPD Inpatient Physical Therapy Discharge Summary Dates: 05/27/2019 Dates of Service: 05/25/2019 and 05/26/2019 This is a clinical summary of care provided on the duration of dates listed above. No charge was made in the completion of this documentation. Referring Doctor: Dr. Harris PT Orders: PT CONSULT: limited ability to ambulate Precautions: standard Patient Profile/Admitting Diagnosis: Patient admitted 05/23/2019 for medical management of pneumonia, COPD exacerbation. PMHX: COPD, hypertension, dyslipidemia, BPH, osteoarthritis ETOH use Social History/Home Situation: Patient lives independently with his Cora. He drives independently and reports a relatively active lifestyle. He and his winter in [place], and he reports that they were supposed to leave today. Typically reside in [place] until August, then return to [place] for the summer months. Patient states that he walks for exercise in [place], although without any regularity. He does not utilize any assistive device. Equipment Owned/DME: None Subjective: NT Objective: General Observation: NT Mental Status: NT Pain:NT Vital Signs: NT ROM: Right Upper Extremity: WFL Left Upper Extremity: WFL Right Lower Extremity: WFL Left Lower Extremity: WFL Strength: Right Upper Extremity: Shoulder flexion 3/5 or greater. Biceps 4+/5. Triceps 4+/5. Shoulder internal rotation 4/5. Shoulder external rotation 4/5. Left Upper Extremity: Shoulder flexion 3/5 or greater. Biceps 4+/5. Triceps 4+/5. Shoulder internal rotation 4/5. Shoulder external rotation 4/5. Right Lower Extremity: Hip flexion 5/5. Quads 5/5. Ankle dorsiflexion 5/5. Left Lower Extremity: Hip flexion 5/5. Quads 5/5. Ankle dorsiflexion 5/5. Bed Mobility/Transfers: Supine?sit: Independent Sit?supine: Independent Sit?stand: Independent Stand?sit: Independent Bed to chair: Independent without assistive device Gait: Patient ambulates 350 feet without assistive device. Patient manages 15 x 4-inch steps and 10 x 6-inch steps. Balance: Static Sitting: Normal Dynamic Sitting: Normal Static Standing: Normal, although maintaining wide DEANNA Dynamic Standing: Good Special Tests: Mobility Limitations Standardized Measure [facility] 6 clicks Basic Mobility Inpatient Short Form: Raw Score: 24 CMS Score: 0% deficit Assessment: Patient is a 78-year-old male referred to physical therapy services with the diagnosis of limited ability to ambulate. Patient presents with clinical signs and symptoms consistent with diagnosis, related to acute medical issues. Goals: Goals X1 week 1. Supine-Sit: independent MET 2. Sit-Supine: independent MET 3. Sit-Stand : independent MET 4. Stand-Sit : independent MET 5. Bed-Chair: independent MET 6. Chair-Bed: independent MET 7. Gait: independent without device x 300' MET DISCHARGE RECOMMENDATIONS: Home without anticipated services TREATMENT CODE/TIME: NC Thank you very much for this referral. Tammy Mayes PT, DPT, CLT [facility] at [facility]
[2019-05-27 23:07] LABS: Mycoplasma Pneumoniae PCR Negative; Specimen source SPUTUM
== END 2019-05-26 15:17 | disposition home or self-care (01) | DRG 190 ==
LOC: ER 18:10 → MS 19:00
PROVIDERS: Admitting Provider General Practice; Emergency Provider Physician Assistant; PCP Family Medicine; Visit Provider Internal Medicine
DX: J44.0 Chronic obstructive pulmonary disease with (acute) lower respiratory infection (principal); J18.1 Lobar pneumonia, unspecified organism; J44.1 Chronic obstructive pulmonary disease with (acute) exacerbation; I10 Essential (primary) hypertension; E78.5 Hyperlipidemia, unspecified; Z87.891 Personal history of nicotine dependence
CPT/HCPCS: 36415; 80048; 80053; 84145; 85027; 87040; 93005; 94618; 94640; 96365; 96366; 96375; 97162; 97530; 99222; 99232; 99239; 99285; J1650; 71045; 71046; 82607; 83605; 83735; 83880; 84484; 85025; 87070; 87205; 87450; 87581; 93010; J1956; J2930; J7512; J7620

== ENCOUNTER 2019-12-24 11:18 | Emergency (ER) | payer MEDICARE, OTHER, SELFPAY ==
[2019-12-24 11:24] VITALS: BP 156/72; PULSE 90; RESP 18; TEMP 36.9; O2SAT 95
--- NOTE | 2019-12-24 12:03 | W.ED.GENAD ---
Discharge Plan Disposition Patient Disposition: HOME Condition: Stable Discharge Details Chief Complaint: Allergic Clinical Impression: Bee sting Primary Care Provider: Josiah Alamo ED Provider: Sergio Olea Home Meds and New Rx's Prescriptions: Continued albuterol sulfate 1.25 mg/3 mL solution for nebulization 1.25 mg Inhalation QID PRN (Reason: shortness of breath or wheezing) Qty: 90 RF: 4 cholecalciferol (vitamin D3) 400 unit tablet 400 unit PO DAILY RF: 0 clarithromycin 500 mg tablet 500 mg PO BID Qty: 20 RF: 0 CENTRUM SILVER TABLET 1 EACH tablet 1 tab PO DAILY RF: 0 Advair HFA 230-21 mcg/actuation HFA aerosol inhaler 2 puff Inhalation BID Qty: 12 RF: 4 amlodipine 5 mg tablet 5 mg PO DAILY Qty: 90 RF: 4 albuterol sulfate [ProAir HFA] 90 mcg/actuation HFA aerosol inhaler 2 puff Inhalation QID PRN (Reason: shortness of breath or wheezing) Qty: 3 RF: 4 ipratropium-albuterol 0.5 mg-3 mg(2.5 mg base)/3 mL Solution For Nebulization 3 ml UPD Q4H PRN PRN (Reason: shortness of breath or wheezing) Qty: 90 RF: 0 cyanocobalamin (vitamin B-12) [Vitamin B-12] 500 mcg Tablet 500 mcg PO DAILY Qty: 30 RF: 0 guaifenesin [Mucinex] 600 mg Tablet Extended Release 12hr 600 mg PO BID PRN PRN (Reason: cough) Qty: 20 RF: 0 pantoprazole 40 mg Tablet,Delayed Release (Dr/Ec) 40 mg PO DAILY@0730 Qty: 10 RF: 0 Atrovent HFA 17 mcg/actuation HFA aerosol inhaler 2 puff Inhalation QID Qty: 3 RF: 4 Discharge Instructions Instructions: Insect Bite or Sting (ED) Additional Instructions: [id number] Benadryl as directed. Rest, elevate, cool compresses every 2 hours for 20 minutes. Wear compression stockings to help with the swelling. Please watch for new or worsening symptoms and return to the ER for any concerns Discharge Data Discharge Date/Time-TO BE ENTERED AT DEPARTURE: 12/24/19 12:12 Medical Decision Making 78-year-old gentleman stung by a bee over the weekend presents for continuation of symptoms locally. He never had any body wide rash, swelling of the lips or mouth. He denies any difficulty breathing or chest pain. All that he has been doing is sitting with his legs down soaking Epson salt. We discussed his symptoms and presentation in length. He is already 3 days status post the staying without any signs of systemic reaction. This certainly appears to be a localized reaction without evidence of DVT or cellulitis. Conservative therapy would be elevation, cool compresses, compression stockings, [id number] Benadryl. Patient is quite comfortable this plan and has no additional questions or concerns. She was encouraged to return to the ER for new or worsening symptoms, otherwise contact his primary care provider for outpatient reevaluation. Medical Records Medical records reviewed: Yes I reviewed the patient's medical records. HPI General Mode of arrival: ambulatory. Date/Time Provider Initiated Documentation: 12/24/19 12:03. Limitations to Documentation: no limitations. Information obtained by: patient. HPI Narrative: This is a 78-year-old gentleman who sustained a single bee sting on his left lateral ankle on Sunday. He reports that locally in the left foot and ankle he continues to have mild discomfort, swelling. He has been using warm soaks with little relief. He has not tried any [id number] medications for his symptoms. He denies any lip or tongue swelling, difficulty speaking or breathing, wheezing, chest pain, shortness of breath, rash elsewhere on his body. He has never had a reaction to a bee sting before. He is a past medical history of COPD, hypertension, osteoarthritis. Related Data Home Medications Medication Instructions Recorded Confirmed Centrum Silver Tablet 1 tab PO DAILY 08/21/12 12/24/19 cholecalciferol (vitamin D3) 10 400 unit PO DAILY 10/31/18 12/24/19 mcg (400 unit) tablet albuterol sulfate 1.25 mg/3 mL 1.25 mg INHALATION QID PRN #90 ml 12/05/18 12/24/19 solution for nebulization fluticasone propionate 230 2 puff INHALATION BID #12 gm 04/29/19 12/24/19 mcg-salmeterol 21 mcg/actuation HFA inhaler Atrovent HFA 2 puff INHALATION QID #3 inhaler 05/26/19 12/24/19 cyanocobalamin (vitamin B-12) 500 mcg PO DAILY #30 tab 05/26/19 12/24/19 [Vitamin B-12] guaifenesin [Mucinex] 600 mg PO BID PRN PRN #20 tab 05/26/19 12/24/19 ipratropium-albuterol 3 ml UPD Q4H PRN PRN #90 ml 05/26/19 12/24/19 pantoprazole 40 mg PO DAILY@0730 #10 tab 05/26/19 12/24/19 amlodipine 5 mg tablet 5 mg PO DAILY #90 tab-cap 07/16/19 12/24/19 clarithromycin 500 mg tablet 500 mg PO BID #20 tab 10/10/19 12/24/19 albuterol sulfate 90 mcg/actuation 2 puff INHALATION QID PRN #3 ea 12/08/19 12/24/19 aerosol inhaler Previous Rx's Medication Instructions Recorded albuterol sulfate 1.25 mg/3 mL 1.25 mg INHALATION QID PRN #90 ml 12/05/18 solution for nebulization fluticasone propionate 230 2 puff INHALATION BID #12 gm 04/29/19 mcg-salmeterol 21 mcg/actuation HFA inhaler Atrovent HFA 2 puff INHALATION QID #3 inhaler 05/26/19 cyanocobalamin (vitamin B-12) 500 mcg PO DAILY #30 tab 05/26/19 [Vitamin B-12] guaifenesin [Mucinex] 600 mg PO BID PRN PRN #20 tab 05/26/19 ipratropium-albuterol 3 ml UPD Q4H PRN PRN #90 ml 05/26/19 pantoprazole 40 mg PO DAILY@0730 #10 tab 05/26/19 amlodipine 5 mg tablet 5 mg PO DAILY #90 tab-cap 07/16/19 clarithromycin 500 mg tablet 500 mg PO BID #20 tab 10/10/19 albuterol sulfate 90 mcg/actuation 2 puff INHALATION QID PRN #3 ea 12/08/19 aerosol inhaler Allergies Allergy/AdvReac Type Severity Reaction Status Date / Time Penicillins Allergy Unknown Unverified 12/24/19 11:28 venom-honey bee Allergy Unknown Unverified 12/24/19 11:28 hydrochlorothiazide AdvReac Intermediate Cough Unverified 12/24/19 11:28 doxycycline AdvReac Chest Verified 12/24/19 11:28 tightness DOG DANDER Allergy Unknown Uncoded 12/24/19 11:28 DUST Allergy Unknown Uncoded 12/24/19 11:28 General Stated Complaint: Allergic SHANON: 3 Review of Systems Constitutional Constitutional: Reports fever(s) and Denies weakness Eyes Eyes: Denies change in vision ENT Ears, Nose, Mouth, and Throat: Denies lip swelling, Denies sore throat and Denies throat swelling Cardiovascular Cardiovascular: Denies chest pain and Denies dyspnea Respiratory Respiratory: Denies cough, Denies dyspnea and Denies wheezing Musculoskeletal Musculoskeletal: Denies numbness and Denies tingling Integumentary/Breasts Skin/Breast: Denies rash Neurologic Neurologic: Denies numbness, Denies tingling and Denies weakness Allergic/Immunologic Allergic/Immunologic: Denies urticaria, Denies lip swelling, Denies throat swelling and Denies wheezing [facility] Medical History (Updated 12/24/19 @ 12:04 by VARGHESE Leal) BPH loc w/o ur obs/LUTS (Acute 09/24/15) CAP (community acquired pneumonia) (Acute) Cataract (Acute 01/23/14) Chronic obstructive lung disease (Acute) ASTHMA/COPD Essential hypertension (Acute 03/20/13) Hemorrhoids (Inactive) Hypercholesterolemia (Acute) Osteoarthritis (Acute) BILATERAL HIP Right lower lobe pneumonia (Inactive) Sexual function problem (Acute) Surgical History Colonoscopy - MAC (~1999) NEG Extraction of cataract 01/23/14; DR. UGARTE; RIGHT Family History Mother Personal history of malignant neoplasm INTESTINAL Father Diabetes Essential hypertension Heart disease Sister Personal history of malignant neoplasm BRAIN Brother No problems noted. Social History Smoking/Tobacco Use Status: Former Tobacco Use Drug use: Never Substance use type: does not use Details: had flu shot for [id number] season feb/mar Do you feel safe at home: Yes Do you feel safe in your relationship?: Yes Exam Const General: cooperative, healthy appearing, comfortable and no acute distress Orientation: alert and awake HENMT Head: normal to inspection, normocephalic and atraumatic Mouth: oral mucosae normal and moist mucous membranes Throat: posterior oropharynx normal Eyes Conjunctivae: conjunctivae normal Sclera: sclerae normal Neck Neck: normal visual inspection, trachea midline and supple Resp Effort & Inspection: normal respiratory effort and able to speak in complete sentences Auscultation: clear to auscultation bilaterally Cardio Rate: regular rate Rhythm: regular rhythm Skin General skin exam: no rashes or lesions noted Neuro General: patient alert, patient awake, patient oriented x3, moves all extremities and no focal motor deficits Cranial Nerves: CN's II-XI intact bilaterally Cognition: normal cognition Speech: speech normal Motor: muscle tone normal throughout and strength 5/5 throughout Sensory Exam: no sensory deficits noted Extrem General: full ROM, no calf tenderness and other (Negative Homans sign bilaterally) Other: Left lower extremity lateral list there is a single puncture wound however I do not see any signs of stinger. There is localized mild swelling-edema but there is no warmth, erythema, tenderness. This does not extend into the calf, negative Homans sign. Psych Appearance: grossly normal Mental Status: mental status grossly normal Course Vital Signs Vital signs: Vital Signs Temperature 36.9 C 12/24/19 11:24 Pulse 90 12/24/19 11:24 Respiratory Rate 18 12/24/19 11:24 Blood Pressure 156/72 H 12/24/19 11:24 Pulse Oximetry 95 12/24/19 11:24 Temperature 36.9 C 12/24/19 11:24 Temperature Source Skin 12/24/19 11:24 Pulse 90 12/24/19 11:24 Respiratory Rate 18 12/24/19 11:24 Respiratory Effort 12/24/19 11:31 Blood Pressure 156/72 H 12/24/19 11:24 Pulse Oximetry 95 12/24/19 11:24 Oxygen Delivery Method Room Air 12/24/19 11:24 Oxygen Flow Rate 0 12/24/19 11:24 Pain Level 3 12/24/19 11:24
== END 2019-12-24 12:12 | disposition home or self-care (01) ==
PROVIDERS: Emergency Provider Physician Assistant; PCP Family Medicine
DX: T63.441A Toxic effect of venom of bees, accidental (unintentional), initial encounter (principal); L53.9 Erythematous condition, unspecified; I10 Essential (primary) hypertension; J44.9 Chronic obstructive pulmonary disease, unspecified; Z87.891 Personal history of nicotine dependence
CPT/HCPCS: 99282; 99283

== ENCOUNTER 2019-12-31 02:48 | Outpatient (CLI) | payer MEDICARE, OTHER, SELFPAY ==
[2019-12-31 09:20] LABS: Hemoglobin A1C 6.2 % (3.8-5.6)
[2019-12-31 10:00] LABS: Calculated LDL 158 mg/dL (<100); Cholesterol 234 mg/dL (<200); HDL Cholesterol 42 mg/dL (40-60); Triglyceride 172 mg/dL (<150)
== END 2019-12-31 03:08 ==
PROVIDERS: PCP Nurse Practitioner Family; Visit Provider Family Medicine
DX: E11.9 Type 2 diabetes mellitus without complications (principal); E78.00 Pure hypercholesterolemia, unspecified
CPT/HCPCS: 36415; 80061; 83036

== ENCOUNTER 2020-03-05 02:57 | Outpatient (CLI) | payer MEDICARE, OTHER, SELFPAY ==
[2020-03-05 11:18] LABS: Anion Gap 8.3 mmol/L (3-11); BUN 12 mg/dL (7-18); CO2 28.7 mmol/L (21.0-32.0); CREATININE 0.77 mg/dL (0.70-1.30); Calcium 9.3 mg/dL (8.5-10.1); Calculated LDL 101 mg/dL (<100); Chloride 106 mmol/L (98-107); Cholesterol 173 mg/dL (<200); Glucose 115 mg/dL (74-106); HDL Cholesterol 47 mg/dL (40-60); Potassium 4.1 mmol/L (3.5-5.1); Sodium 143 mmol/L (136-145); Triglyceride 125 mg/dL (<150)
== END 2020-03-05 03:17 ==
PROVIDERS: PCP Nurse Practitioner Family; Visit Provider Nurse Practitioner Family
DX: I10 Essential (primary) hypertension (principal); E78.5 Hyperlipidemia, unspecified
CPT/HCPCS: 36415; 80048; 80061

== ENCOUNTER 2020-08-14 10:39 | Outpatient (CLI) | payer MEDICARE, OTHER, SELFPAY ==
--- NOTE | 2020-08-14 10:30 | RT.EKG_ITS ---
APPROVED REPORT Exam: Resting ECG Patient Location: O HR:97 bpm ECG Measurements Heart Rate 97 AXIS [place] 192 P 70 QRSd 94 QRS 29 QT 351 T 56 QTc 446 Conclusion Sinus rhythm...normal P axis, V-rate 60- 99
--- NOTE | 2020-08-14 11:15 | DI.RAD_ITS ---
EXAM: XR CHEST 2V PA LATERAL CLINICAL HISTORY: cough, r/o pneumonia. TECHNIQUE: 2D digital imaging was performed. COMPARISON: CR XR PORTABLE CHEST AP from 05/26/2019 FINDINGS: Heart size is normal. The mediastinum is not widened. Platelike atelectasis or scarring in both lung bases is again noted. In addition, there is subtle in filtrates towards the lung bases. No pleural effusions. No pneumothorax. IMPRESSION: Bibasilar atelectasis. Subtle infiltrates. No pleural effusions. DATA REPOSITORY: RADIATION DOSE DELIVERED:
--- NOTE | 2020-08-14 11:56 | DI.VRAD_ITS ---
PROCEDURE INFORMATION: Exam: XR Chest Exam date and time: 08/14/2020 11:34 AM Age: 79 years old Clinical indication: Other: Cough, R/O pneumonia TECHNIQUE: Imaging protocol: XR of the chest Views: 2 views. COMPARISON: CR XR PORTABLE CHEST AP 05/26/2019 6:12 AM FINDINGS: Lungs: Mild opacities in both bases may represent atelectasis or pneumonia.. Pleural spaces: Unremarkable. No pleural effusion. No pneumothorax. Heart/Mediastinum: Unremarkable. No cardiomegaly. Bones/joints: Unremarkable. IMPRESSION: Mild opacities in both bases may represent atelectasis or pneumonia.. Dictated and Authenticated by: Bartolome Gill MD. Ordering:DARSHAN Restrepo MD
== END 2020-08-14 10:40 | disposition home or self-care (01) ==
LOC: DI.CM 10:40
PROVIDERS: PCP Nurse Practitioner Family; Visit Provider Physician Assistant
DX: R07.9 Chest pain, unspecified (principal); R05 Cough
CPT/HCPCS: 93010; 71046

== ENCOUNTER 2020-08-14 15:05 | Outpatient (REF) | payer MEDICARE, OTHER, SELFPAY ==
[2020-08-15 12:50] LABS: COVID-19 RT-PCR UVMMC Result Negative (Negative)
== END 2020-08-14 15:06 | disposition home or self-care (01) ==
LOC: NCHCN 15:05
PROVIDERS: PCP Nurse Practitioner Family; Visit Provider Physician Assistant
DX: Z20.822 Contact with and (suspected) exposure to COVID-19 (principal); J44.9 Chronic obstructive pulmonary disease, unspecified
CPT/HCPCS: U0003

== ENCOUNTER 2020-09-07 14:02 | Emergency (ER) | payer MEDICARE, OTHER, SELFPAY ==
[2020-09-07] VITALS (16 sets, daily range): BP systolic 117–158; BP diastolic 49–87; PULSE 73–100; RESP 13–28; TEMP 37.1; O2SAT 89–97
--- NOTE | 2020-09-07 14:00 | RT.EKG_ITS ---
APPROVED REPORT Exam: Resting ECG Patient Location: E HR:96 bpm ECG Measurements Heart Rate 96 AXIS HI 202 P 73 QRSd 88 QRS 40 QT 345 T 43 QTc 437 Conclusion Sinus rhythm...normal P axis, V-rate 60- 99 I have reviewed and interpreted ECG and agree with software generated interpretation.
--- NOTE | 2020-09-07 14:15 | DI.CT_ITS ---
EXAM: CT CHEST PE CTA CLINICAL HISTORY: cough, sob, r/o pe, pneumonia. TECHNIQUE: Imaging Protocol: Axial CT angiography was performed with multi-slice acquisition and mu lti-planar and/or 3D reconstructions. CONTRAST MATERIAL: Intravenous: Omnipaque 350 Contrast volume:structured data in ml COMPARISON: CT CHEST WITH CONTRAST from 11/26/2017 FINDINGS: CT angiography of the chest was performed with intravenous infusion of 100 cc of Visipaque 320 There is mild cardiomegaly. No pericardial effusion. There are areas of ground-glass and consolidative opacity in a patchy distribution predominantly invo lving right middle lobe and left lower lobe posteriorly. Findings are suggestive of an infectious pr ocess.. No pleural effusion. Tracheobronchial tree appears intact. No evidence of pulmonary embolic disease. Thoracic aorta is of normal diameter, no thoracic aortic an eurysm or dissection, major branch vessels appear intact. No mediastinal or hilar adenopathy. Images obtained through the upper abdomen show unremarkable appearance of the visualized portions of the liver, spleen, pancreas, adrenals, and kidneys. IMPRESSION: Findings suggesting patchy multifocal pneumonia. No evidence of pulmonary embolic disease. RADIATION DOSE DELIVERED: 551.85mGy.cm Total DLP 551.85mGy.cm Total DLP DATA REPOSITORY: All CT scans at this facility are submitted to the National Radiology Data Registry (NRDR) Dose Index Registry (DIR) with the [employer] (A[employer]). RADIATION OPTIMIZATION: All CT scans at this facility use at least one of these dose optimization te chniques: automated exposure control; mA and/or kV adjustment per patient size (includes targeted exa ms where dose is matched to clinical indication); or iterative reconstruction.
--- NOTE | 2020-09-07 14:19 | ED.GENADUL_ITS ---
Discharge Plan Disposition Patient Disposition: HOME Condition: Improving Discharge Details Clinical Impression: Multifocal pneumonia, Acute exacerbation of chronic obstructive pulmonary disease Primary Care Provider: Vivienne Wells ED Provider: Tatianna Odom Home Meds and New Rx's Prescriptions: New levofloxacin 750 mg tablet 750 mg PO DAILY 10 Days Qty: 10 RF: 0 prednisone 20 mg tablet See Rx Instructions .ROUTE .COMPLEX Qty: 18 RF: 0 Continued albuterol sulfate 1.25 mg/3 mL solution for nebulization 1.25 mg Inhalation QID PRN (Reason: shortness of breath or wheezing) Qty: 90 RF: 4 Shingrix (PF) 50 mcg/0.5 mL suspension for reconstitution 0.5 ml IM ONCE Qty: 1 RF: 0 cholecalciferol (vitamin D3) 400 unit tablet 400 unit PO DAILY RF: 0 rosuvastatin 10 mg tablet 10 mg PO DAILY Qty: 90 RF: 4 CENTRUM SILVER TABLET 1 EACH tablet 1 tab PO DAILY RF: 0 albuterol sulfate [ProAir HFA] 90 mcg/actuation HFA aerosol inhaler 2 puff Inhalation QID PRN (Reason: shortness of breath or wheezing) Qty: 3 RF: 4 Advair HFA 230-21 mcg/actuation HFA aerosol inhaler 2 puff Inhalation BID Qty: 12 RF: 4 amlodipine 10 mg tablet 10 mg PO DAILY Qty: 90 RF: 4 ipratropium-albuterol 0.5 mg-3 mg(2.5 mg base)/3 mL Solution For Nebulization 3 ml UPD Q4H PRN PRN (Reason: shortness of breath or wheezing) Qty: 90 RF: 0 Atrovent HFA 17 mcg/actuation HFA aerosol inhaler 2 puff Inhalation QID Qty: 3 RF: 4 Discharge Instructions Instructions: COPD (Chronic Obstructive Pulmonary Disease) (ED), Pneumonia (ED) Additional Instructions: Use your albuterol inhaler and nebulizer as needed and directed. Your prescriptions have been sent electronically to your pharmacy. Take the prescriptions as directed. Call your primary care doctor's office today to schedule a follow-up appointment for reevaluation within the next few days. Return immediately to the emergency department if you develop any worsening or new concerning symptoms. Discharge Data Discharge Date/Time-TO BE ENTERED AT DEPARTURE: 09/07/20 16:43 Discharge Physician: Tatianna Odom Medical Decision Making 79-year-old male with a history of COPD, hypertension, hyperlipidemia who presents for junky cough, raspy breathing and shortness of breath for the past month, worse over the past few days. He had been improving with recent steroids and antibiotics but symptoms returned after he finished steroids a few days ago. Temp 98.8. Oxygen saturation 93% on room air. Patient has coarse breath sounds, rhonchi and wheezing throughout. He has crackles noted in his upper areas with breathing. Differential diagnosis includes acute COPD exacerbation, pneumonia, acute CHF, coronavirus, arrhythmia, dehydration, etc. Will place an IV, screening labs, DuoNeb, IV Solu-Medrol, CT chest and reassess. Labs reviewed. White blood cell count 19. Normal electrolytes. Troponin negative. CT chest notes patchy multifocal pneumonia but no PE. Patient reassessed and he states he feels much better. Oxygen saturation 95% on room air. Breath sounds improved throughout. As patient is allergic to penicillin and doxycycline, will likely have to treat with another round of Levaquin again. Prescriptions for prednisone and Levaquin sent electronically to his pharmacy which do home delivery. Case discussed with patient's PCP covering provider Dr. Moeller that I have decided to treat with another regimen of Levaquin due to his other antibiotic allergies as well as another round of steroids. Advised that he follow-up in their office within the next few days for reevaluation. Usual and customary return precautions given prior to discharge. Medical Records Medical records reviewed: Yes I reviewed the patient's medical records. Imaging Data Radiologic Study: Radiologist's impression: CT CHEST PE CTA CLINICAL HISTORY: cough, sob, r/o pe, pneumonia. TECHNIQUE: Imaging Protocol: Axial CT angiography was performed with multi- slice acquisition and multi-planar and/or 3D reconstructions. CONTRAST MATERIAL: Intravenous: Omnipaque 350 Contrast volume:structured data in ml COMPARISON: CT CHEST WITH CONTRAST from 11/26/2017 FINDINGS: CT angiography of the chest was performed with intravenous infusion of 100 cc of Visipaque 320 There is mild cardiomegaly. No pericardial effusion. There are areas of ground-glass and consolidative opacity in a patchy distribution predominantly involving right middle lobe and left lower lobe posteriorly. Findings are suggestive of an infectious process.. No pleural effusion. Tracheobronchial tree appears intact. No evidence of pulmonary embolic disease. Thoracic aorta is of normal diameter, no thoracic aortic aneurysm or dissection, major branch vessels appear intact. No mediastinal or hilar adenopathy. Images obtained through the upper abdomen show unremarkable appearance of the visualized portions of the liver, spleen, pancreas, adrenals, and kidneys. IMPRESSION: Findings suggesting patchy multifocal pneumonia. No evidence of pulmonary embolic disease. Lab Data Lab results reviewed: Yes I reviewed the patient's lab results. Labs: Laboratory Tests Range/Units 09/07/20 09/07/20 09/07/20 14:26 14:26 14:26 WBC (4.4-10.8) 10^3/uL 19.26 H RBC (4.36-5.78) 10^6/uL 4.70 Hgb (13.5-17.5) g/dL 14.6 Hct (40.0-50.0) % 43.6 MCV (80-95) fL 92.8 MCH (27.0-33.0) pg 31.1 MCHC (32.0-36.0) % 33.5 RDW (11.8-14.1) % 12.7 Plt Count (130-400) 10^3/uL 142 MPV (8.0-11.0) fL 11.0 Immature Gran % 0.7 Neutrophils % 79.3 Lymphocytes % 12.4 Monocytes % 6.0 Eosinophils % 1.2 Basophils % 0.4 Nucleated RBC % % 0 Absolute Neutrophils (1.2-6.7) 10^3/uL 15.27 H Absolute Lymphocytes (1.2-3.4) 10^3/uL 2.39 Absolute Monocytes (0.1-0.8) 10^3/uL 1.16 H Absolute Eosinophils (0.0-0.7) 10^3/uL 0.23 Absolute Basophils (0.0-0.2) 10^3/uL 0.08 PT (9.3-11.0) sec 9.8 INR (0.9-1.1) 1.0 APTT (21.0-27.5) sec 21.9 Sodium (136-145) mmol/L 140 Potassium (3.5-5.1) mmol/L 3.5 Chloride (98-107) mmol/L 104 Carbon Dioxide (21.0-32.0) mmol/L 27.7 Anion Gap (3-11) mmol/L 8.3 BUN (7-18) mg/dL 16 Creatinine (0.70-1.30) mg/dL 0.9 Estimated GFR/1.73 m2 (mL/min/1.73m2) >= 60.00 Glucose (74-106) mg/dL 206 H Calcium (8.5-10.1) mg/dL 9.3 Magnesium (1.8-2.4) mg/dL 2.0 Total Bilirubin (0.2-1.0) mg/dL 0.6 AST (15-37) U/L 13 L ALT (16-63) U/L 33 Alkaline Phosphatase (46-116) U/L 73 Troponin I (<0.06) ng/mL < 0.05 NT-Pro-B Natriuret Pep (<300) pg/mL Total Protein (6.4-8.2) g/dL 7.3 Albumin (3.4-5.0) g/dL 3.3 L COVID-19 Source Range/Units 09/07/20 09/07/20 14:26 14:54 WBC (4.4-10.8) 10^3/uL RBC (4.36-5.78) 10^6/uL Hgb (13.5-17.5) g/dL Hct (40.0-50.0) % MCV (80-95) fL MCH (27.0-33.0) pg MCHC (32.0-36.0) % RDW (11.8-14.1) % Plt Count (130-400) 10^3/uL MPV (8.0-11.0) fL Immature Gran % Neutrophils % Lymphocytes % Monocytes % Eosinophils % Basophils % Nucleated RBC % % Absolute Neutrophils (1.2-6.7) 10^3/uL Absolute Lymphocytes (1.2-3.4) 10^3/uL Absolute Monocytes (0.1-0.8) 10^3/uL Absolute Eosinophils (0.0-0.7) 10^3/uL Absolute Basophils (0.0-0.2) 10^3/uL PT (9.3-11.0) sec INR (0.9-1.1) APTT (21.0-27.5) sec Sodium (136-145) mmol/L Potassium (3.5-5.1) mmol/L Chloride (98-107) mmol/L Carbon Dioxide (21.0-32.0) mmol/L Anion Gap (3-11) mmol/L BUN (7-18) mg/dL Creatinine (0.70-1.30) mg/dL Estimated GFR/1.73 m2 (mL/min/1.73m2) Glucose (74-106) mg/dL Calcium (8.5-10.1) mg/dL Magnesium (1.8-2.4) mg/dL Total Bilirubin (0.2-1.0) mg/dL AST (15-37) U/L ALT (16-63) U/L Alkaline Phosphatase (46-116) U/L Troponin I (<0.06) ng/mL NT-Pro-B Natriuret Pep (<300) pg/mL 156 Total Protein (6.4-8.2) g/dL Albumin (3.4-5.0) g/dL COVID-19 Source Nasopharyx ECG Data Attestation: I personally reviewed and interpreted this ECG (s) as follows: Interpretation: rate of 96, sinus, no acute ST elevation or depression. [place] 202. QRS 88. QTc 437. HPI General Mode of arrival: ambulatory . Date/Time Provider Initiated Documentation: 09/07/20 14:03 . Limitations to Documentation: no limitations . Information obtained by: patient . HPI Narrative: Patient is an 79-year-old male with a history of COPD, hypertension, hyperlipidemia who presents to the ED with complaint of cough, rash, and shortness of breath for the past month, worse over the past few days. Patient has been treated twice with steroids and once with antibiotics. He states his symptoms were improving a few days ago but then have gotten progressively worse over the past few days. He states he has a junky cough but has been unable to bring up any phlegm. He states his temperature was low-grade fever at 99 today. Patient states that shortness of breath is worse when laying flat. He denies any chest pain, nausea, vomiting, diarrhea, abdominal pain. He states he is fully vaccinated as of over 1 month ago. He denies any recent travel or recent known exposure to coronavirus. Related Data Home Medications Medication Instructions Recorded Confirmed Centrum Silver Tablet 1 tab PO DAILY 08/21/12 09/06/20 cholecalciferol (vitamin D3) 10 400 unit PO DAILY 10/31/18 09/06/20 mcg (400 unit) tablet albuterol sulfate 1.25 mg/3 mL 1.25 mg INHALATION QID PRN #90 ml 12/05/18 09/06/20 solution for nebulization Atrovent HFA 2 puff INHALATION QID #3 inhaler 05/26/19 09/06/20 ipratropium-albuterol 3 ml UPD Q4H PRN PRN #90 ml 05/26/19 09/06/20 albuterol sulfate 90 mcg/actuation 2 puff INHALATION QID PRN #3 ea 12/08/19 09/06/20 aerosol inhaler rosuvastatin 10 mg tablet 10 mg PO DAILY #90 tab 01/08/20 09/06/20 fluticasone propionate 230 2 puff INHALATION BID #12 gm 01/27/20 09/06/20 mcg-salmeterol 21 mcg/actuation HFA inhaler amlodipine 10 mg tablet 10 mg PO DAILY #90 tab-cap 04/29/20 09/06/20 varicella-zoster glycoE vacc-AS01B 0.5 ml IM ONCE #1 ea 08/30/20 09/06/20 adj(PF) 50 mcg/0.5 mL IM susp, kit levofloxacin 750 mg PO DAILY 10 Days #10 tab 09/07/20 prednisone See Rx Instructions .ROUTE 09/07/20 .COMPLEX #18 tab Previous Rx's Medication Instructions Recorded albuterol sulfate 1.25 mg/3 mL 1.25 mg INHALATION QID PRN #90 ml 12/05/18 solution for nebulization Atrovent HFA 2 puff INHALATION QID #3 inhaler 05/26/19 ipratropium-albuterol 3 ml UPD Q4H PRN PRN #90 ml 05/26/19 albuterol sulfate 90 mcg/actuation 2 puff INHALATION QID PRN #3 ea 12/08/19 aerosol inhaler rosuvastatin 10 mg tablet 10 mg PO DAILY #90 tab 01/08/20 fluticasone propionate 230 2 puff INHALATION BID #12 gm 01/27/20 mcg-salmeterol 21 mcg/actuation HFA inhaler amlodipine 10 mg tablet 10 mg PO DAILY #90 tab-cap 04/29/20 varicella-zoster glycoE vacc-AS01B 0.5 ml IM ONCE #1 ea 08/30/20 adj(PF) 50 mcg/0.5 mL IM susp, kit levofloxacin 750 mg PO DAILY 10 Days #10 tab 09/07/20 prednisone See Rx Instructions .ROUTE 09/07/20 .COMPLEX #18 tab Allergies Allergy/AdvReac Type Severity Reaction Status Date / Time Penicillins Allergy Unknown Verified 09/06/20 09:39 venom-honey bee Allergy Unknown Verified 09/06/20 09:39 hydrochlorothiazide AdvReac Intermediate Cough Verified 09/06/20 09:39 doxycycline AdvReac Chest Verified 09/06/20 09:39 tightness DOG DANDER Allergy Unknown Uncoded 09/06/20 09:39 DUST Allergy Unknown Uncoded 09/06/20 09:39 General Stated Complaint: RespSymp SHANON: 2 Review of Systems All systems reviewed & are unremarkable except as noted in HPI and below Constitutional Constitutional: Reports as per HPI, Denies chills and Denies fever(s) Eyes Eyes: Denies blurry vision ENT Ears, Nose, Mouth, and Throat: Denies dizziness, Denies sore throat and Denies throat swelling Cardiovascular Cardiovascular: Denies chest pain and Reports dyspnea Respiratory Respiratory: Reports cough and Reports dyspnea Gastrointestinal Gastrointestinal: Denies abdominal pain, Denies diarrhea and Denies vomiting Genitourinary Genitourinary: Denies hematuria and Denies dysuria Musculoskeletal Musculoskeletal: Denies back pain and Denies numbness Integumentary/Breasts Skin/Breast: Denies lesions and Denies rash Neurologic Neurologic: Denies dizziness, Denies localized weakness and Denies numbness Allergic/Immunologic Allergic/Immunologic: Denies throat swelling PFSH Medical History BPH loc w/o ur obs/LUTS COPD (chronic obstructive pulmonary disease) Essential hypertension Hyperlipidemia Osteoarthritis Prediabetes Surgical History S/P cataract surgery S/P colonoscopy Family History Mother Pulmonary fibrosis Intestinal cancer Father Diabetes Heart disease Hypertension Sister Brain cancer Brother No problems noted. Social History Smoking/Tobacco Use Status: Former Tobacco Use Smoking risk assessment performed?: Yes Drug use: Never Substance use type: does not use Do you feel safe at home: Yes Do you feel safe in your relationship?: Yes Exam Const General: cooperative and no acute distress HENMT Head: normal to inspection Face and sinus: normal facial exam Eyes General: appearance normal, both eyes and all related structures EOM: EOM intact bilaterally Neck Neck: normal visual inspection and No submandibular swelling Lymphatic: no lymphadenopathy noted Chest Chest: normal inspection of the chest and no tenderness Resp Effort & Inspection: normal respiratory effort and able to speak in complete se ntences Auscultation: rhonchi upper bilaterally and lower bilaterally and wheezes expiratory wheezes and inspiratory wheezes Cardio Rate: regular rate Rhythm: regular rhythm GI Inspection: normal to inspection Palpation: soft, not firm, not rigid and nontender Auscultation: normal bowel sounds Skin General skin exam: no rashes or lesions noted Neuro General: patient alert, patient awake and patient oriented x3 Cognition: normal cognition Speech: speech normal Motor: muscle tone normal throughout Sensory Exam: no sensory deficits noted Extrem General: normal to inspection, full ROM, capillary refill normal, no calf tenderness bilaterally and edema Laterality: bilateral (1+ pitting) Psych Appearance: grossly normal Mental Status: mental status grossly normal Speech and Movement: speech and movement normal Affect: normal affect Course Vital Signs Vital signs: Vital Signs Temperature 98.8 F 09/07/20 14:10 Pulse 98 H 09/07/20 14:10 Respiratory Rate 20 09/07/20 14:10 Blood Pressure 158/73 H 09/07/20 14:10 Pulse Oximetry 94 09/07/20 14:10 Temperature 98.8 F 09/07/20 14:10 Temperature Source Skin 09/07/20 14:10 Pulse 98 H 09/07/20 14:10 Respiratory Rate 20 09/07/20 14:10 Respiratory Effort 09/07/20 14:14 Blood Pressure 158/73 H 09/07/20 14:10 Blood Pressure Position Sitting 09/07/20 14:10 Pulse Oximetry 94 09/07/20 14:10 Oxygen Delivery Method Room Air 09/07/20 14:10 Oxygen Flow Rate 0 09/07/20 14:10 Pain Level 0 09/07/20 14:10
[2020-09-07 14:42] LABS: Abs Immature Grans 0.14 10^3/uL (0.0-0.06); Absolute Lymphocyte Count 2.39 10^3/uL (1.2-3.4); Absolute Monocyte Count 1.16 10^3/uL (0.1-0.8); Basophils % 0.4; Eosinophils % 1.2; HCT 43.6 % (40.0-50.0); HGB 14.6 g/dL (13.5-17.5); Immature Grans % 0.7; Lymphocytes % 12.4; MCH 31.1 pg (27.0-33.0); MCHC 33.5 % (32.0-36.0); MCV 92.8 fL (80-95); Neutrophils % 79.3; Nucleated RBC 0 %; Platelet Count 142 10^3/uL (130-400); RDW 12.7 % (11.8-14.1); RDW-SD 43.4 fL; WBC 19.26 10^3/uL (4.4-10.8)
[2020-09-07 14:44] LABS: Absolute Basophil Count 0.08 10^3/uL (0.0-0.2); Absolute Eosinophil Count 0.23 10^3/uL (0.0-0.7); Absolute Neutrophil Count 15.27 10^3/uL (1.2-6.7)
[2020-09-07 14:52] LABS: PTT Activated 21.9 sec (21.0-27.5); Prothrombin Time 9.8 sec (9.3-11.0)
[2020-09-07 14:53] LABS: ALT 33 U/L (16-63); AST 13 U/L (15-37); Albumin 3.3 g/dL (3.4-5.0); Alkaline Phosphatase 73 U/L (46-116); Anion Gap 8.3 mmol/L (3-11); BUN 16 mg/dL (7-18); Bilirubin, Total 0.6 mg/dL (0.2-1.0); CO2 27.7 mmol/L (21.0-32.0); CREATININE 0.9 mg/dL (0.70-1.30); Calcium 9.3 mg/dL (8.5-10.1); Chloride 104 mmol/L (98-107); Glucose 206 mg/dL (74-106); Potassium 3.5 mmol/L (3.5-5.1); Sodium 140 mmol/L (136-145); Total Protein 7.3 g/dL (6.4-8.2)
[2020-09-07 14:54] LABS: Troponin I < 0.05 ng/mL (<0.06)
[2020-09-07] MEDS: Albuterol/Ipratropium 3 ML UPD VIAL UPD (15:01)
[2020-09-07] MEDS: methylPREDNISolone SUCC 125 MG VIAL IVP (15:01)
[2020-09-07] MEDS: Normal Saline - Diluent 50 ML VIAL IV (15:46)
[2020-09-07 15:56] LABS: COVID-19 PCR Negative (Negative)
[2020-09-07 16:04] LABS: NT-proBNP 156 pg/mL (<300)
[2020-09-07] MEDS: levoFLOXacin 500 MG, levoFLOXacin 250 MG 750 MG PO (16:22)
== END 2020-09-07 16:43 | disposition home or self-care (01) ==
PROVIDERS: Emergency Provider Physician Assistant; PCP Nurse Practitioner Family
DX: J44.0 Chronic obstructive pulmonary disease with (acute) lower respiratory infection (principal); J18.8 Other pneumonia, unspecified organism; J44.1 Chronic obstructive pulmonary disease with (acute) exacerbation; Z03.818 Encounter for observation for suspected exposure to other biological agents ruled out
CPT/HCPCS: 36415; 71275; 80053; 87635; 93005; 94640; 96374; 99285; 83735; 83880; 84484; 85025; 85610; 85730; 93010; J2930; J7620

== ENCOUNTER 2020-10-22 03:10 | Outpatient (CLI) | payer MEDICARE, OTHER, SELFPAY ==
[2020-10-22 10:42] LABS: Abs Immature Grans 0.05 10^3/uL (0.0-0.06); Absolute Basophil Count 0.13 10^3/uL (0.0-0.2); Absolute Eosinophil Count 0.45 10^3/uL (0.0-0.7); Absolute Monocyte Count 0.83 10^3/uL (0.1-0.8); Basophils % 1.2; HCT 43.5 % (40.0-50.0); HGB 14.3 g/dL (13.5-17.5); Immature Grans % 0.4; Lymphocytes % 23.2; MCH 30.4 pg (27.0-33.0); MCHC 32.9 % (32.0-36.0); MCV 92.6 fL (80-95); MPV 10.6 fL (8.0-11.0); Monocytes % 7.4; Neutrophils % 63.8; Nucleated RBC 0 %; Platelet Count 183 10^3/uL (130-400); RDW 12.7 % (11.8-14.1); RDW-SD 43.5 fL; WBC 11.19 10^3/uL (4.4-10.8)
[2020-10-22 10:44] LABS: Absolute Neutrophil Count 7.14 10^3/uL (1.2-6.7)
== END 2020-10-22 03:11 | disposition home or self-care (01) ==
LOC: LBO 03:10
PROVIDERS: PCP Nurse Practitioner Family; Visit Provider Family Medicine
DX: I10 Essential (primary) hypertension (principal)
CPT/HCPCS: 36415; 85025

== ENCOUNTER 2021-02-19 15:53 | Outpatient (REF) | payer MEDICARE, OTHER, SELFPAY | END 2021-02-19 15:54 | disposition home or self-care (01) | LOC: LBN 15:53 | PROVIDERS: PCP Nurse Practitioner Family; Visit Provider Internal Medicine Pulmonary Disease | DX: R05.3 Chronic cough (principal) | CPT/HCPCS: 87116; 87206; 87070; 87205 ==

== ENCOUNTER 2021-09-09 02:00 | Outpatient (CLI) | payer MEDICARE, OTHER, SELFPAY ==
[2021-09-09 10:34] LABS: Hemoglobin A1C 6.8 % (<5.7)
[2021-09-09 11:49] LABS: Anion Gap 7.9 mmol/L (3-11); BUN 15 mg/dL (7-18); CO2 30.1 mmol/L (21.0-32.0); CREATININE 0.8 mg/dL (0.70-1.30); Calcium 9.3 mg/dL (8.5-10.1); Calculated LDL 95 mg/dL (<100); Chloride 105 mmol/L (98-107); Cholesterol 172 mg/dL (<200); Glucose 115 mg/dL (74-106); HDL Cholesterol 54 mg/dL (40-60); Potassium 4.1 mmol/L (3.5-5.1); Sodium 143 mmol/L (136-145); Triglyceride 118 mg/dL (<150)
[2021-09-09 18:57] LABS: PSA, Screening 1.1 ng/mL (<=6.5)
== END 2021-09-09 02:01 | disposition home or self-care (01) ==
LOC: LBO 02:00
PROVIDERS: PCP Nurse Practitioner Family; Visit Provider Nurse Practitioner Family
DX: E78.5 Hyperlipidemia, unspecified (principal); I10 Essential (primary) hypertension; R73.03 Prediabetes; N40.0 Benign prostatic hyperplasia without lower urinary tract symptoms; Z12.5 Encounter for screening for malignant neoplasm of prostate
CPT/HCPCS: 36415; 80048; 80061; 84153; 83036

== ENCOUNTER 2022-09-06 03:10 | Outpatient (CLI) | payer MEDICARE, OTHER, SELFPAY ==
[2022-09-06 12:23] LABS: ALT 20 U/L (16-63); AST 17 U/L (15-37); Alkaline Phosphatase 61 U/L (46-116); Anion Gap 6.9 mmol/L (3-11); BUN 13 mg/dL (7-18); Bilirubin, Total 0.4 mg/dL (0.2-1.0); CO2 30.1 mmol/L (21.0-32.0); CREATININE 0.8 mg/dL (0.70-1.30); Calcium 9.1 mg/dL (8.5-10.1); Calculated LDL 85 mg/dL (<100); Chloride 107 mmol/L (98-107); Cholesterol 144 mg/dL (<200); Estimated GFR 87.81 (mL/min/1.73m2); Glucose 116 mg/dL (74-106); HDL Cholesterol 37 mg/dL (40-60); Potassium 3.7 mmol/L (3.5-5.1); Sodium 144 mmol/L (136-145); Total Protein 7.9 g/dL (6.4-8.2); Triglyceride 112 mg/dL (<150)
[2022-09-06 12:37] LABS: Hemoglobin A1C 6.6 % (<5.7)
== END 2022-09-06 03:11 | disposition home or self-care (01) ==
LOC: LOS 03:13
PROVIDERS: PCP Nurse Practitioner Family; Visit Provider Nurse Practitioner Family
DX: E78.5 Hyperlipidemia, unspecified (principal); R73.03 Prediabetes
CPT/HCPCS: 36415; 80053; 80061; 83036

== ENCOUNTER 2023-02-09 10:48 | Outpatient (CLI) | payer MEDICARE, OTHER, SELFPAY ==
--- NOTE | 2023-02-09 10:45 | RT.EKG_ITS ---
APPROVED REPORT Exam: Resting ECG Reason for Exam: c/o left-sided chest pain Patient Location: O HR:79 bpm ECG Measurements Heart Rate 79 AXIS NH 198 P 30 QRSd 90 QRS 2 QT 385 T 40 QTc 442 Conclusion Sinus rhythm...normal P axis, V-rate 50- 99 Multiple ventricular premature complexes...V complexes w/ short R-R intervls Otherwise normal ECG
== END 2023-02-09 10:49 | disposition home or self-care (01) ==
LOC: DI.CM 10:49
PROVIDERS: PCP Nurse Practitioner Family; Visit Provider Nurse Practitioner Family
DX: R07.9 Chest pain, unspecified (principal)
CPT/HCPCS: 93010

== ENCOUNTER 2023-02-13 01:41 | Outpatient (CLI) | payer MEDICARE, OTHER, SELFPAY ==
[2023-02-13 12:33] LABS: ALT 22 U/L (16-63); AST 16 U/L (15-37); Albumin 3.2 g/dL (3.4-5.0); Alkaline Phosphatase 56 U/L (46-116); Anion Gap 7.9 mmol/L (3-11); BUN 13 mg/dL (7-18); Bilirubin, Total 0.7 mg/dL (0.2-1.0); CO2 27.1 mmol/L (21.0-32.0); CREATININE 0.9 mg/dL (0.70-1.30); Calcium 9.5 mg/dL (8.5-10.1); Chloride 103 mmol/L (98-107); Estimated GFR 84.22 (mL/min/1.73m2); Glucose 131 mg/dL (74-106); Potassium 3.7 mmol/L (3.5-5.1); Sodium 138 mmol/L (136-145); TSH (W/Ref FT4) 0.84 uIU/mL (0.36-3.74); Total Protein 7.6 g/dL (6.4-8.2)
== END 2023-02-13 01:42 | disposition home or self-care (01) ==
LOC: LOS 01:42
PROVIDERS: PCP Nurse Practitioner Family; Visit Provider Nurse Practitioner Family
DX: E11.9 Type 2 diabetes mellitus without complications (principal); R06.09 Other forms of dyspnea; I10 Essential (primary) hypertension; E78.5 Hyperlipidemia, unspecified
CPT/HCPCS: 36415; 80053; 84443; 85025

== ENCOUNTER 2023-02-16 04:18 | Outpatient (CLI) | payer MEDICARE, OTHER, SELFPAY ==
[2023-02-16] MEDS: Levalbuterol HFA 15 GM INH 4 PUFF IH (16:00)
[2023-02-16] MEDS: Inhaler, Assist Device 1 EACH MC (16:01)
--- NOTE | 2023-02-19 13:24 | W.PFT ---
Date of service: 02/16/23 Time of Service: 14:53 Pulmonary Function Test Result Indications: Dyspnea Interpretation Spirometry: There is moderate airflow limitation. No significant bronchodilator response. Lung Volumes: There is air trapping Diffusion Capacity: Borderline low diffusion Airway Pressure: Normal airways resistance Impression Moderate airflow obstruction with air trapping and a borderline diffusion. This could represent COPD with or without emphysema. Clinical Correlation therefore is recommended.
== END 2023-02-16 04:19 | disposition home or self-care (01) ==
PROVIDERS: PCP Nurse Practitioner Family; Visit Provider Nurse Practitioner Family
DX: R06.09 Other forms of dyspnea (principal)
CPT/HCPCS: 94060; 94726; 94729

== ENCOUNTER → 2023-02-19 01:23 | Outpatient (CLI) | payer MEDICARE, OTHER, SELFPAY ==
--- NOTE | 2023-02-19 07:30 | DI.NM_ITS ---
APPROVED REPORT Exam: Pharmacologic Patient Location: Out-Patient Room/Bed: Stress Nurse: Juan Grigsby RN Ordering Provider:SHIRLEY CEJA, Contact Number: BMI: 36.48 Baseline Rhythm: Sinus Rhythm Comment: Ocasional unifocal PVC's. Indications: CP, ANDREWS. Medical History Medical History: HTN, HLD, COPD, JUANA. Cardiac Medications: Amlodi, Amlodipine, ipratropium-albuterol, albuterol. Allergies: PCN, Doxycyline. Cardiac Risk Factors: HTN, COPD, Obesity, SOB, Hyperlipidemia, JUANA. Previous Cardiac Procedures: none Pretest Chest Pain Characteristics: No chest pain Exercise History: Sedentary Physical Disabilities: Deconditioned. Lung Sounds: Severely diminished. Heart Sounds: Regular, distant. Stress Test Details Test: Pharmacologic stress testing performed using 0.4 mg of regadenoson per 5 mL given IV over 10 s econds. Reason for pharmacologic stress test: physical limitation. Nuclear Acquisition: Rest Tc-99m/Stress Tc-99m 1 day Rest Isotope: Tc-99m Sestamibi. Dose: 10.5 Date: 02/19/2023 Injection Time: 0845 Stress Isotope: Tc-99m Sestamibi. Dose: 10.32 Date: 02/19/2023 Injection Time: 1032 HR Resting HR Supine: 72 bpm Max Heart Rate (APMHR): 136.790114 bpm Target HR (85% APMHR): 115.906622 bpm Max HR Achieved: 83 bpm % of APMHR: 61.03 Recovery HR: 83 bpm BP Resting BP Supine: 174/84 mmHg Max BP: 174/84 mmHg Recovery BP: 140/72 mmHg ECG Resting ECG: SR Ectopy: Unifocal PVC's Stress ECG: SR ST Change: No significant ST segment changes noted Arrhythmia: Unifocal PVC's Recovery ECG: SR Recovery ST Change: No significant ST segment changes noted Recovery Arrhythmia: Unifocal PVC's Clinical Stress Symptoms: None Rate Pressure Product: [id number] Stress ECG Conclusion 1. Resting electrocardiogram was within normal limits 2. Patient underwent testing using pharmacologic stress with regadenoson 3. Peak heart rate achieved was 61% of predicted for age 4. The electrocardiographic portion of the test was nondiagnostic 5. See MPI report MPI Conclusion Myocardial perfusion is normal. There is no ischemia or evidence of prior infarction Calculated EF is 45% with normal wall motion. Visually the EF appears within the range of normal Radiologist Interpretation Radiologist agrees with [employer]'s Interpretation. Radiologist Interpretation by: Bowen Pete MD Interpretation Date/Time: 02/21/2023 12:18:59
--- NOTE | 2023-02-19 07:30 | DI.RAD_ITS ---
Exam(s) XR CHEST 2V PA LATERAL EXAM: XR CHEST 2V PA LATERAL CLINICAL HISTORY: CHEST PAIN, DYSPNEA ON EXERTION,R07.9. TECHNIQUE: 2D digital imaging was performed. COMPARISON: CR,XR XR CHEST 2V PA LATERAL from 08/14/2020 FINDINGS: 2 views: Heart size is upper normal. The mediastinum is not widened. Right lung is clear. There is a 1 cm nodular infiltrate in the left lung adjacent to the heart borde r, probably in the lingular segment. No pleural effusions. No pulmonary edema. IMPRESSION: There is a 1 cm nodular infiltrate adjacent to the left heart border. Follow-up to resolution recomm ended. If clinically indicated follow-up CT scan can be performed. DATA REPOSITORY: RADIATION DOSE DELIVERED:
[2023-02-19] MEDS: Regadenoson 0.4 MG/5 ML SYR IVP (13:28)
== END ==
PROVIDERS: PCP Nurse Practitioner Family; Visit Provider Nurse Practitioner Family
DX: R06.09 Other forms of dyspnea (principal); R07.9 Chest pain, unspecified
CPT/HCPCS: 78452; 93016; 93018; 71046; 93017; J2785

== ENCOUNTER 2023-02-22 05:00 | Outpatient (CLI) | payer MEDICARE, OTHER, SELFPAY ==
[2023-02-22 13:00] LABS: Abs Immature Grans 0.05 10^3/uL (0.0-0.06); Absolute Basophil Count 0.08 10^3/uL (0.0-0.2); Absolute Eosinophil Count 0.44 10^3/uL (0.0-0.7); Absolute Monocyte Count 0.76 10^3/uL (0.1-0.8); Absolute Neutrophil Count 6.59 10^3/uL (1.2-6.7); Basophils % 0.8; Eosinophils % 4.3; HCT 43.8 % (40.0-50.0); HGB 14.2 g/dL (13.5-17.5); Immature Grans % 0.5; Lymphocytes % 23.3; MCH 30.2 pg (27.0-33.0); MCHC 32.4 % (32.0-36.0); MCV 93 fL (80-95); MPV 11.1 fL (8.0-11.0); Monocytes % 7.4; Neutrophils % 63.7; WBC 10.32 10^3/uL (4.4-10.8)
[2023-02-22 13:12] LABS: Diff Comment Diff Reviewed; RBC Morphology Normal
== END 2023-02-22 05:01 | disposition home or self-care (01) ==
LOC: LOS 05:00
PROVIDERS: PCP Nurse Practitioner Family; Visit Provider Nurse Practitioner Family
DX: R06.09 Other forms of dyspnea (principal); R07.9 Chest pain, unspecified
CPT/HCPCS: 36415; 85025

== ENCOUNTER 2023-02-22 08:56 | Emergency (ER) | payer MEDICARE, OTHER, SELFPAY ==
[2023-02-22 09:04] VITALS: BP 163/81; PULSE 85; RESP 18; TEMP 36.7; O2SAT 92
--- NOTE | 2023-02-22 09:06 | W.ED.GENAD ---
Discharge Plan Disposition Patient Disposition: Home Discharge Details Clinical Impression: Left wrist sprain Primary Care Provider: Vivienne Wells ED Provider: Angel Bellamy Home Meds and New Rx's Prescriptions: No Action ipratropium-albuterol 0.5 mg-3 mg(2.5 mg base)/3 mL solution for nebulization 3 ml UPD Q4H PRN PRN (Reason: shortness of breath or wheezing) Qty: 90 0RF amlodipine 10 mg tablet 10 mg PO DAILY Qty: 90 3RF rosuvastatin 10 mg tablet 10 mg PO DAILY Qty: 90 3RF Bevespi Aerosphere 9-4.8 mcg HFA aerosol inhaler 2 puff inhalation BID Qty: 10.7 3RF CENTRUM SILVER TABLET 1 EACH tablet 1 tab PO DAILY tamsulosin 0.4 mg capsule 0.4 mg PO DAILY Qty: 90 3RF albuterol sulfate [ProAir HFA] 90 mcg/actuation HFA aerosol inhaler 2 puff Inhalation QID PRN (Reason: shortness of breath or wheezing) Qty: 3 4RF Discharge Instructions Instructions: Wrist Sprain (ED) Additional Instructions: At this time we see no evidence of fracture on the x-rays. You likely have sprained it. You do have a significant amount of arthritis present in the wrist though. Please take Tylenol as needed for pain. You can also rub Voltaren gel on the area 2-3 times per day to help with the pain and swelling. Please use the splint to help support your wrist as it heals. If you notice any worsening of your symptoms, or any new symptoms such as vomiting, diarrhea, fever, chills, shortness of breath, chest pain, numbness, weakness, or fainting , please return immediately to the emergency department for reevaluation. Please follow up with your primary care provider as soon as possible for reassessment and reevaluation. As always, it was a pleasure participating in your medical care today. Referrals: Vivienne Wells NP [Primary Care Provider] - Medical Decision Making This is an 82-year-old male who is right-hand dominant who presents today for evaluation of left wrist pain. Patient states that yesterday he was at the chiropractor's office when according to his he did not lift his feet up and tripped on himself and fell forward. He landed on outstretched left wrist. Pain was immediate. He did take some Tylenol for pain. He has continued pain and swelling in the left wrist since then. He denies any other complaints at this time. Pain is made worse with movement of the wrist. Improved by nothing. Pain is present in the distal left radius, but he denies pain in the hands or fingers. No other complaints at this time. He did not hit his head. He had no loss of consciousness. Physical exam demonstrates bruising mild swelling and tenderness over the distal radius and lateral proximal carpals. No snuffbox tenderness. No distal ulna pain. Normal sensation, die maker stamping strength, and pulses. Suspect bruise contusion and potential distal radius fracture. We will get an x-ray monitor closely and reassess. 10:06 AM X-ray negative for acute fracture. Suspect sprain in conjunction with his notable arthritis. Will give universal wrist splint for home, as well as recommendations for Tylenol and Voltaren gel. Discussed red flags for which to return. I have extensively reviewed the treatment plan and discharge instructions with the patient. I have addressed all patient concerns at this time. The patient was made aware of what symptoms to monitor for that would warrant a return to the emergency department. Discussed the plan with the patient, they demonstrate verbal understanding and agreement with our assessment and plan at this time. The documentation in this chart was dictated using [employer] dictation software. Please excuse any dictation errors. FINDINGS: 3 views No evidence of acute fracture or dislocation. No significant ulnar variance. There are moderate-advanced degenerative changes in the 1st carpometacarpal joint. Vascular calcification is noted in both the radial and ulnar arteries. No osseous lesions. Bone density age-appropriate. Incidentally noted is a radiopaque foreign body adjacent to the medial aspect of the head of the 3rd metacarpal. IMPRESSION: Findings as above but no acute fractures evident. HPI General Date/Time Provider Initiated Documentation: 02/22/23 09:01. HPI Narrative: This is an 82-year-old male who is right-hand dominant who presents today for evaluation of left wrist pain. Patient states that yesterday he was at the chiropractor's office when according to his he did not lift his feet up and tripped on himself and fell forward. He landed on outstretched left wrist. Pain was immediate. He did take some Tylenol for pain. He has continued pain and swelling in the left wrist since then. He denies any other complaints at this time. Pain is made worse with movement of the wrist. Improved by nothing. Pain is present in the distal left radius, but he denies pain in the hands or fingers. No other complaints at this time. He did not hit his head. He had no loss of consciousness. Related Data Home Medications Medication Instructions Recorded Confirmed Centrum Silver Tablet 1 tab PO DAILY 08/21/12 02/22/23 tamsulosin 0.4 mg capsule 0.4 mg PO DAILY #90 caps 08/30/22 02/22/23 albuterol sulfate 90 mcg/actuation 2 puff inhalation QID PRN 12/20/22 02/22/23 aerosol inhaler (ProAir HFA) shortness of breath or wheezing #3 ea amlodipine 10 mg tablet 10 mg PO DAILY #90 tab-caps 02/09/23 02/22/23 ipratropium 0.5 mg-albuterol 3 mg 3 ml UPD Q4H PRN PRN shortness of 02/09/23 02/22/23 (2.5 mg base)/3 mL nebulization breath or wheezing #90 mL soln rosuvastatin 10 mg tablet 10 mg PO DAILY #90 tabs 02/09/23 02/22/23 glycopyrrolate 9 mcg-formoterol 2 puff inhalation BID #10.7 grams 02/12/23 02/22/23 4.8 mcg HFA aerosol inhaler (Bevespi Aerosphere) Previous Rx's Medication Instructions Recorded tamsulosin 0.4 mg capsule 0.4 mg PO DAILY #90 caps 08/30/22 albuterol sulfate 90 mcg/actuation 2 puff inhalation QID PRN 12/20/22 aerosol inhaler (ProAir HFA) shortness of breath or wheezing #3 ea amlodipine 10 mg tablet 10 mg PO DAILY #90 tab-caps 02/09/23 ipratropium 0.5 mg-albuterol 3 mg 3 ml UPD Q4H PRN PRN shortness of 02/09/23 (2.5 mg base)/3 mL nebulization breath or wheezing #90 mL soln rosuvastatin 10 mg tablet 10 mg PO DAILY #90 tabs 02/09/23 glycopyrrolate 9 mcg-formoterol 2 puff inhalation BID #10.7 grams 02/12/23 4.8 mcg HFA aerosol inhaler (Bevespi Aerosphere) Allergies Allergy/AdvReac Type Severity Reaction Status Date / Time Penicillins Allergy Unknown Verified 02/22/23 09:07 venom-honey bee Allergy Unknown Verified 02/22/23 09:07 hydrochlorothiazide AdvReac Intermediate Cough Verified 02/22/23 09:07 doxycycline AdvReac Chest Verified 02/22/23 09:07 tightness DOG DANDER Allergy Unknown Uncoded 02/22/23 09:07 DUST Allergy Unknown Uncoded 02/22/23 09:07 General SHANON: 2 Review of Systems All systems reviewed & are unremarkable except as noted in HPI and below PFSH All Active Problems (Updated 02/22/23 @ 09:26 by Angel Bellamy DO) Left wrist sprain (Acute) Osteoarthritis (Chronic) Essential hypertension (Chronic) 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 Son No problems noted. Daughter No problems noted. Daughter No problems noted. Social History Smoking/Tobacco Use Status: Former Tobacco Use tobacco type: cigarettes Quit Date: 05/21/80 Tobacco: How many years used: 20 Second Hand Exposure: No Smoking risk assessment performed?: Yes Alcohol Intake: current Alcohol Intake frequency: a few times a month Alcohol type: beer Drug use: Never Substance use type: does not use Caregiver/Support person: No Household members: spouse Housing: house Communication Needs: None Do you need help understanding health information?: Often Pets and animals: No Sexually active: No Do you think of yourself as: straight/heterosexual Current gender identity: male What is your relationship status?: How often do you talk on the phone with friends or family?: never How often do you get together with friends or relatives?: once per week How often do you attend zoroastrian or samaritan services?: decline to answer Do you belong to any clubs or organized social groups?: no Panel score (0-1 are the most socially isolated patients): 1 What type of physical activity do you participate in: none Duration: 15-30 minutes/day Frequency: does not exercise Aruna/Yazidi: Oriental Orthodox Special aruna needs: No Seatbelt use: always Helmet use: Yes Helmet use: sometimes Drive intox or ride w/intox special education bus driver: No Do you feel safe at home: Yes Do you feel safe in your relationship?: Yes Exam Narrative Exam Narrative: 1.Const: Well-nourished, Well-developed, appearing stated age 2.Eyes: PERRL, no conjunctival injection, and symmetrical lids. 3.ENT: Atraumatic external nose and ears. Moist MM. Neck: Symmetric, trachea midline, No thyromegaly. 4.CVS: +S1/S2, No murmurs or gallops. Peripheral pulses 2+ and equal in all extremities. Brisk capillary refill in all extremities. 5.RESP: Unlabored respiratory effort. Clear to auscultation bilaterally. No wheezes rales or rhonchi 6.GI: Soft, Nontender/Nondistended, No hepatosplenomegaly. No guarding or rebound. 7.MSK: Patient's left wrist demonstrates swelling and bruising over the distal radius and proximal carpals. Pain and tenderness is located over the distal radius and proximal carpals. No snuffbox tenderness. Patient does have some bruising over the distal ulna, but no tenderness. Left hand: Patient has +5 out of 5 strength in the left distal hands in the medial, ulnar, radial nerve distribution, intact light touch sensation in the left and right hands, and +2 over 2 radial pulses. 8.Skin: Warm, Dry. No rashes or lesions. 9.Neuro: straight line press setter II-XII grossly intact. Sensation grossly intact, no focal neurologic deficits. 10.Psych: (AAO) x3. Appropriate mood and affect
--- NOTE | 2023-02-22 09:18 | DI.RAD_ITS ---
Exam(s) XR WRIST LT COMPLETE EXAM: XR WRIST LT COMPLETE CLINICAL HISTORY: foosh left wrist, r/o fx. TECHNIQUE: 2D digital imaging was performed. COMPARISON: No exams were available for comparison FINDINGS: 3 views No evidence of acute fracture or dislocation. No significant ulnar variance. There are moderate-adv anced degenerative changes in the 1st carpometacarpal joint. Vascular calcification is noted in both the radial and ulnar arteries. No osseous lesions. Bone density age-appropriate. Incidentally noted is a radiopaque foreign body a djacent to the medial aspect of the head of the 3rd metacarpal. IMPRESSION: Findings as above but no acute fractures evident. DATA REPOSITORY: RADIATION DOSE DELIVERED:
== END 2023-02-22 10:09 | disposition home or self-care (01) ==
PROVIDERS: Emergency Provider Student in an Organized Health Care Education/Training Program; PCP Nurse Practitioner Family
DX: S63.502A Unspecified sprain of left wrist, initial encounter (principal); W19.XXXA Unspecified fall, initial encounter
CPT/HCPCS: 29125; 36415; 99283; 73110; 85025

== ENCOUNTER 2023-03-08 01:40 | Outpatient (CLI) | payer MEDICARE, OTHER, SELFPAY ==
--- NOTE | 2023-03-08 08:00 | DI.CT_ITS ---
Exam(s) CT CHEST WO EXAM: CT CHEST WO CLINICAL HISTORY: nodular infiltrate on cxray, hx of smoking,PULMONARY NODULE,R91.1. TECHNIQUE: Imaging protocol: Axial computed tomography images were obtained and coronal and sagittal reformatted images were created and reviewed. COMPARISON: CT CT CHEST PE CTA from 09/07/2020 CR XR CHEST 2V PA LATERAL from 02/19/2023 FINDINGS: Tracheobronchial tree: Patent where visualized. Pulmonary parenchyma: There is a reticular nodular infiltrate in the left upper and lower lobes. Sca rring or atelectasis is seen in the left lower lobe and lingula. This has improved compared to the e xamination from 09/07/2020. The right lung is clear. There are no pulmonary nodules. Mediastinum and Alicia: No dominant adenopathy or fluid collection. The esophagus is unremarkable. Thyroid gland: Unremarkable. Pleura: No effusion or pneumothorax. Heart: The heart is not dilated. Coronary artery calcifications are present. No pericardial effusion . Aorta: Thoracic aorta non-dilated. Atherosclerosis is present. Upper abdomen: Unremarkable. Lymph nodes: Within normal limits. Soft tissues: Unremarkable. Bones:Within normal limits for the patient's age. There is a stable bone island in the T5 vertebral body. IMPRESSION: 1. No evidence of a pulmonary nodule. 2. Nonspecific infiltrate seen in the left upper and left lower lobes. This may represent small airw ays disease or bronchiolitis. 3. Scarring or atelectasis in the lower lobe and lingula. RADIATION DOSE DELIVERED: Total DLP Total DLP DATA REPOSITORY: All CT scans at this facility are submitted to the National Radiology Data Registry (NRDR) Dose Index Registry (DIR) with the [employer] (ACR). RADIATION OPTIMIZATION: All CT scans at this facility use at least one of these dose optimization te chniques: automated exposure control; mA and/or kV adjustment per patient size (includes targeted exa ms where dose is matched to clinical indication); or iterative reconstruction.
== END 2023-03-08 02:00 ==
LOC: DI 01:40
PROVIDERS: PCP Nurse Practitioner Family; Visit Provider Nurse Practitioner Family
DX: R91.1 Solitary pulmonary nodule (principal); Z87.891 Personal history of nicotine dependence
CPT/HCPCS: 71250

== ENCOUNTER → 2023-04-19 00:37 | Outpatient (CLI) | payer MEDICARE, OTHER, SELFPAY ==
--- NOTE | 2023-04-19 14:02 | DI.US_ITS ---
APPROVED REPORT EXAM: Comprehensive 2D, Doppler, and color-flow Echocardiogram Patient Location: Out-Patient Operating Room Coordinator: Ayala Carcamo RDCS (AE) Indications: Dyspnea, Chest pain, Systolic murmur Other Information Study Quality: Fair Conclusion Normal left ventricular wall thickness and chamber size. Ejection fraction is 58%. Wall motion is n ormal. Diastolic function is normal for age Normal right ventricular size and systolic function Both atria are normal in size Aortic valve is probably trileaflet and mildly sclerotic without stenosis or regurgitation No additional structural or hemodynamically significant valvular disease identified Ventricular systolic pressure could not be estimated Wall motion Left Ventricle The left ventricle is normal size. The left ventricular systolic function is normal. The left ventric ular ejection fraction is within the normal range. There is normal left ventricular wall thickness. T here is normal LV segmental wall motion. Left ventricular filling pattern is normal for age. There is no ventricular septal defect visualized. LVEF is 58%. Right Ventricle The right ventricle is normal size. The right ventricular systolic function is normal. Atria Left atrium is mildly dilated. The right atrium size is normal. The interatrial septum is intact with no evidence for an atrial septal defect. Aortic Valve Aortic valve is probably trileaflet Aortic valve mild sclerosis There is no aortic valvular stenosis. No aortic regurgitation is present. Mitral Valve The mitral valve is normal in structure. No evidence of mitral valve stenosis. Trace mitral regurgita tion. Tricuspid Valve The tricuspid valve is normal in structure. There is no tricuspid valve stenosis. Trace tricuspid reg urgitation. Unable to assess PA pressure. Pulmonic Valve The pulmonary valve is normal in structure. There is no pulmonic valvular stenosis. There is no pulmo nely valvular regurgitation. Great Vessels The aortic root is normal in size. Aortic arch is not well visualized. IVC is normal in size and thony apses >50% with inspiration. Pericardium There is no pericardial effusion. 2D Dimensions IVSD d PLAX 1.01 cm M: 0.6-1.2 Ao Root d 3.33 cm M: 3.1 - 3.7 LVPW d PLAX 0.96 cm M: 0.6 - 1.2 LVID d PLAX 4.33 cm M: 4.2 - 5.8 LVDs 2.99 cm M: 2.5 - 4.0 LV EF Teichholz 58.9 % FS 30.94 % LV EDV (Teich) 84.3 mL LV ESV (Teich) 34.7 mL M-Mode TAPSE 2.48 cm (M/F) >1.7 Auto EF LV EDV A4C 127.7 mL LV EDV A2C 109.9 mL LV EDV BP 116.9 mL LV ESV A4C 54.1 mL LV ESV A2C 47.0 mL LV ESV BP 49.6 mL LVEF(%) A4C 57.6 % LVEF(%) A2C 57.3 % LVEF(%) BP 57.6 % LV SV A4C 73.6 ml LV SV A2C 63.0 ml LV SV BP 67.3 ml LV CO A4C 5.2 L/min LV CO A2C 4.3 L/min LV CO BP 4.7 L/min HR A4C 70.45 BPM HR A2C 68.31 BPM LV EDV Index (BP) LV Strain Long Pk Overal Avg (s) 17.75 LA Volume LA Length A4C 5.5 cm LA Length A2C 5.4 cm LA Area A4C s 20.52 cm2 LA Area A2C s 19.11 cm2 LA Vol A4C A-L 64.62 mL LA Vol A2C A-L 57.03 mL LA Vol Biplane A-L 61.2 mL LA Vol/BSA A4C A-L LA Vol/BSA A2C A-L LA Vol/BSA BP A-L 39.3 mL/m2 LA Vol A4C MOD 60.7 mL LA Vol A2C MOD 54.0 mL LA Vol BP MOD 57.6 mL RA Volume RA Area A4C 17.1 cm2 RA ESV A4C (A-L) 45.7mL RA Vol/BSA A4C A-L RA Length A4C 5.4 cm RA ESV A4C (MOD) 42.5mL LV Diastology MV E' medial 0.079 (>0.07 m/s) MV E Vmax 0.74 (0.4-1.3 m/s) MV E/E' MED 9.39 (<14) MV A Vmax 0.95 (0.4-1.3 m/s) MV E/E' LAT 0.08 (<14) E/A Ratio 0.8 Aortic Valve AoV Vmax 1.69 m/s LVOT Vmax 1.25 m/s AoV Peak Grad 11.4 mmHg LVOT Peak Grad 6.2 mmHg AoV Area (Vmax) 2.52 cm2 LVOT VTI 0.274 m AoV VTI 0.380 m LVOT Mean Grad 3.0 mmHg AoV Mean Sam. 1.15 m/s LVOT SV 93.71 mL AoV Mean Grad 6.0 mmHg LVOT Diam s 2.05 cm AoV Area (VTI) 2.47 cm2 Velocity Ratio 0.74 Mitral Valve MV DT 362 (160-240 msec) MV Vmax TIPS 1.04 m/s MV Mean Grad 2.2 (<2mmHg) MV VTI 0.381 m Pulmonary Valve PV Vmax 0.99 (0.5-1.5 m/s) RVOT Vmax 0.95 m/s PV Peak Grad 3.9 mmHg RVOT Peak Gr. 3.6 mmHg PV Mean Sam 0.69 m/s RVOT VTI 0.208 m PV Mean Grad 2.1 mmHg RVOT Mean Gr. 1.9 mmHg Tricuspid Valve TV S' 0.17 m/s
== END ==
PROVIDERS: PCP Nurse Practitioner Family; Visit Provider Nurse Practitioner Family
DX: R06.09 Other forms of dyspnea (principal); R07.9 Chest pain, unspecified
CPT/HCPCS: 93306

== ENCOUNTER 2024-01-25 10:50 | Outpatient (CLI) | payer MEDICARE, OTHER, SELFPAY ==
[2024-01-25 12:23] LABS: Abs Immature Grans 0.05 10^3/uL (0.0-0.06); Absolute Basophil Count 0.11 10^3/uL (0.0-0.2); Absolute Eosinophil Count 0.37 10^3/uL (0.0-0.7); Absolute Lymphocyte Count 2.18 10^3/uL (1.2-3.4); Absolute Monocyte Count 0.79 10^3/uL (0.1-0.8); Basophils % 1.1 %; Eosinophils % 3.7 %; HCT 46.2 % (40.0-50.0); HGB 15.2 g/dL (13.5-17.5); Immature Grans % 0.5 %; Lymphocytes % 21.8 %; MCH 30.6 pg (27.0-33.0); MCHC 32.9 % (32.0-36.0); MCV 93 fL (80-95); MPV 11.5 fL (8.0-11.0); Monocytes % 7.9 %; RBC 4.96 10^6/uL (4.36-5.78); RDW 13.5 % (11.8-14.1); RDW-SD 46.3 fL
[2024-01-25 12:38] LABS: ALT 22 U/L (16-63); AST 18 U/L (15-37); Albumin 3.4 g/dL (3.4-5.0); Alkaline Phosphatase 61 U/L (46-116); Anion Gap 8.7 mmol/L (3-11); BUN 11 mg/dL (7-18); Bilirubin, Total 0.56 mg/dL (0.2-1.0); CO2 27.3 mmol/L (21.0-32.0); CREATININE 0.9 mg/dL (0.70-1.30); Calcium 9.5 mg/dL (8.5-10.1); Chloride 106 mmol/L (98-107); Glucose 131 mg/dL (74-106); Potassium 3.7 mmol/L (3.5-5.1); Sodium 142 mmol/L (136-145); Total Protein 7.7 g/dL (6.4-8.2)
[2024-01-25 12:54] LABS: Hemoglobin A1C 6.9 % (<5.7)
[2024-01-25 18:32] LABS: PSA, Screening 1.5 ng/mL (<=6.5)
== END 2024-01-25 10:51 | disposition home or self-care (01) ==
LOC: LOS 10:51
PROVIDERS: PCP Nurse Practitioner Family; Referring Provider Nurse Practitioner Family; Visit Provider Nurse Practitioner Family
DX: Z12.5 Encounter for screening for malignant neoplasm of prostate (principal); J44.1 Chronic obstructive pulmonary disease with (acute) exacerbation; R73.03 Prediabetes
CPT/HCPCS: 36415; 80053; 84153; 83036; 85025

== ENCOUNTER 2024-03-18 00:37 | Outpatient (CLI) | payer MEDICARE, OTHER, SELFPAY ==
--- NOTE | 2024-03-18 07:00 | DI.RAD_ITS ---
Exam(s) XR KNEE RT 3V AP,LAT,VOLODYMYR EXAM: XR KNEE RT 3V AP,LAT,VOLODYMYR CLINICAL HISTORY: right knee pain,oa,m19.90. TECHNIQUE: 2D digital imaging was performed. COMPARISON: CR RIGHT KNEE LIMITED 1 OR 2 VIEW from 11/02/2010 FINDINGS: Four views No evidence of acute fracture nor prominent joint effusion. There is moderate narrowing of the lateral compartment. Minimal narrowing of the medial compartment and patellofemoral compartment. Bone density age-appropriate. No significant osseous lesions. IMPRESSION: Degenerative changes which are most prominent in the lateral compartment and exhibits some progressio n when compared to prior images of October 2010. No obvious prominent joint effusion. DATA REPOSITORY: RADIATION DOSE DELIVERED:
--- NOTE | 2024-03-18 07:00 | DI.RAD_ITS ---
Exam(s) XR HIP PELVIS ADULT BL EXAM: XR HIP PELVIS ADULT BL CLINICAL HISTORY: bilat hip pain,oa,m19.90. TECHNIQUE: 2D digital imaging was performed. Three views. COMPARISON: None FINDINGS: BONES: No acute fracture is present. No bony destructive lesion is seen. Degenerative changes noted lower lumbar spine. JOINTS: No dislocation present. Moderate to severe narrowing of the right hip joint space. Acetabular spurring. The left hip joint space is maintained shows mild acetabular spurring. SI joints and pubic symphysis are unremarkable. SOFT TISSUE: Vascular calcifications IMPRESSION: Advanced degenerative changes right hip. Mild degenerative changes of the left hip. DATA REPOSITORY: RADIATION DOSE DELIVERED:
--- NOTE | 2024-03-18 07:00 | DI.RAD_ITS ---
Exam(s) XR KNEE LT 3V AP,LAT,VOLODYMYR EXAM: XR KNEE LT 3V AP,LAT,VOLODYMYR CLINICAL HISTORY: left knee pain,oa,m19.90. TECHNIQUE: 2D digital imaging was performed. COMPARISON: CR XR KNEE RT 3V AP,LAT,VOLODYMYR from 03/18/2024 FINDINGS: 3 views No evidence of fracture nor obvious joint effusion. There are mild degenerative changes in the media l lateral compartments. No prominent joint space narrowing on the weight-bearing views. Bone densit y normal. No osseous lesions. Some calcification is noted in the popliteal artery. IMPRESSION: Mild degenerative changes. No obvious joint effusion. DATA REPOSITORY: RADIATION DOSE DELIVERED:
== END 2024-03-18 00:57 ==
LOC: DI 00:37
PROVIDERS: PCP Nurse Practitioner Family; Visit Provider Nurse Practitioner Family
DX: M17.0 Bilateral primary osteoarthritis of knee (principal)
CPT/HCPCS: 73521; 73562

== ENCOUNTER → 2024-06-09 13:49 | Outpatient (BNVA) | payer MEDICARE, OTHER, SELFPAY | PROVIDERS: PCP Nurse Practitioner Family; Referring Provider Nurse Practitioner Family; Visit Provider Student in an Organized Health Care Education/Training Program | DX: M70.61 Trochanteric bursitis, right hip (principal); M16.11 Unilateral primary osteoarthritis, right hip; M17.11 Unilateral primary osteoarthritis, right knee | CPT/HCPCS: 20610; 99214; J1010 ==

== ENCOUNTER 2024-06-15 08:47 | Emergency (ER) | payer MEDICARE, OTHER, SELFPAY ==
[2024-06-15 08:56] VITALS: BP 139/69; PULSE 71; RESP 20; TEMP 36.8; O2SAT 90
--- NOTE | 2024-06-15 09:15 | DI.RAD_ITS ---
Exam(s) XR LUMBAR SPINE COMPLETE EXAM: XR LUMBAR SPINE COMPLETE CLINICAL HISTORY: Back pain. TECHNIQUE: 2D digital imaging was performed. COMPARISON: CT CT CHEST PE CTA from 09/07/[address] CHEST WO from 03/08/2023 CR XR HIP PELVIS ADULT BL from 03/18/2024 FINDINGS: Five views There is indentation of the superior endplate of T12 vertebral body consistent with either Schmorl's node invagination or mild compression fracture. This appears more evident than on CT scan of 023. There is no significant disc space narrowing. No listhesis. Multilevel facet arthropathy is noted a t the lower levels. No significant scoliosis in the lumbar spine. Moderate degenerative changes not ed in the right hip. Sclerotic density at the level the right sacroiliac joint is unchanged from 03/18/2024. IMPRESSION: Schmorl's node invagination versus subtle mild compression fracture at superior endplate of T12. Cor relation with site of tenderness is recommended. DATA REPOSITORY: RADIATION DOSE DELIVERED:
--- NOTE | 2024-06-15 10:16 | ED.GENADUL_ITS ---
Discharge Plan Disposition Patient Disposition: Home Condition: Stable Discharge Details Clinical Impression: Degenerative joint disease (DJD) of lumbar spine Primary Care Provider: Vivienne Wells ED Provider: Cathi Marina Home Meds and New Rx's Prescriptions: New lidocaine 5 % adhesive patch,medicated 1 patch topical DAILY PRN (Reason: back pain) Qty: 15 0RF Rx Instructions: leave on most painful area for up to 12 hrs ondansetron 4 mg tablet,disintegrating 4 mg PO TID PRN (Reason: Nausea Vomiting) 5 Days Qty: 15 0RF Rx Instructions: Take 1 tablet by mouth 3 times daily as needed nausea vomiting. Continued ipratropium-albuterol 0.5 mg-3 mg(2.5 mg base)/3 mL solution for nebulization 3 ml UPD Q4H PRN PRN (Reason: shortness of breath or wheezing) Qty: 90 0RF tiotropium bromide 2.5 mcg/actuation mist 2 puff inhalation DAILY albuterol sulfate 1.25 mg/3 mL solution for nebulization 1.25 mg inhalation QID PRN (Reason: shortness of breath or wheezing) Qty: 90 1RF roflumilast [Daliresp] 250 mcg tablet 250 mcg PO DAILY CENTRUM SILVER TABLET 1 EACH tablet 1 tab PO DAILY fluticasone propion-salmeterol [Advair HFA] 230-21 mcg/actuation HFA aerosol inhaler 2 puff Inhalation BID Qty: 36 3RF albuterol sulfate 90 mcg/actuation HFA aerosol inhaler 2 puff Inhalation QID PRN (Reason: shortness of breath or wheezing) Qty: 3 3RF amlodipine 10 mg tablet 10 mg PO DAILY Qty: 90 3RF tamsulosin 0.4 mg capsule 0.4 mg PO DAILY Qty: 90 3RF rosuvastatin 10 mg tablet 10 mg PO DAILY Qty: 90 3RF epinephrine 0.3 mg/0.3 mL auto-injector 0.3 ml IM Q5-15M PRN (Reason: hypersensitivity reaction) Qty: 2 4RF Discharge Instructions Instructions: Low Back Pain ED, Degenerative Disc Disease ED Additional Instructions: X-ray showed some degenerative joint disease or arthritis in your lumbar spine. Please follow-up with your primary care provider in the next 3 to 5 days. Return to the ER for any worsening pain not relieved by Tylenol or ibuprofen or lidocaine patches, loss of bowel or bladder control, numbness tingling or weakness in your legs or groin area. Please use the lidocaine patches as directed and the nausea medication as directed. alternate ice and heat. Thank you for allowing us to care for you today. It appears that your had a prescription for Reglan which is a nausea medication was sent to the [facility]. Please take Tylenol or Ibuprofen with food every 4-6 hours as needed for pain and swelling. Referrals: Vivienne Wells NP [Primary Care Provider] - 3 days HPI General Mode of arrival: ambulatory . Date/Time Provider Initiated Documentation: 06/15/24 09:00 . Limitations to Documentation: no limitations . Information obtained by: patient, family, RN notes reviewed and old records reviewed . HPI Narrative: 83-year-old male presents to the ER companied by his family with a chief complaint of lower back pain and some prolonged sitting for a couple of days. Also reports vomiting last night. Does report that he has been around his family but has had a stomach bug with similar type symptoms. Denies any chest pain abdominal pain shortness of breath or problems urinating. No recent falls. Has not taken anything this morning for the pain. Does have a past medical history of hypertension, COPD high cholesterol. Related Data Home Medications ?Medication ?Instructions ?Recorded ?Confirmed Centrum Silver Tablet 1 tab PO DAILY 08/21/12 06/15/24 fluticasone propionate 230 2 puff inhalation BID #36 grams 07/03/23 06/15/24 mcg-salmeterol 21 mcg/actuation HFA inhaler (Advair HFA) ipratropium 0.5 mg-albuterol 3 mg 3 ml UPD Q4H PRN PRN shortness of 08/13/23 06/15/24 (2.5 mg base)/3 mL nebulization breath or wheezing #90 mL soln albuterol sulfate 1.25 mg/3 mL 1.25 mg (3 mL) inhalation QID PRN 11/08/23 06/15/24 solution for nebulization shortness of breath or wheezing #90 mL tiotropium bromide 2.5 2 puff inhalation DAILY 11/08/23 06/15/24 mcg/actuation mist for inhalation albuterol sulfate 90 mcg/actuation 2 puff inhalation QID PRN 12/13/23 06/15/24 aerosol inhaler shortness of breath or wheezing #3 ea amlodipine 10 mg tablet 10 mg PO DAILY #90 tabs 01/07/24 06/15/24 tamsulosin 0.4 mg capsule 0.4 mg PO DAILY #90 caps 01/07/24 06/15/24 rosuvastatin 10 mg tablet 10 mg PO DAILY #90 tabs 03/06/24 06/15/24 roflumilast 250 mcg tablet 250 mcg PO DAILY 03/17/24 06/15/24 (Daliresp) epinephrine 0.3 mg/0.3 mL 0.3 ml IM Q5-15M PRN 04/25/24 06/15/24 injection, auto-injector hypersensitivity reaction #2 ea lidocaine 5 % topical patch 1 patch topical DAILY PRN back 06/15/24 pain #15 ea ondansetron 4 mg disintegrating 4 mg PO TID PRN Nausea Vomiting 5 06/15/24 tablet days #15 tabs Previous Rx's ?Medication ?Instructions ?Recorded fluticasone propionate 230 2 puff inhalation BID #36 grams 07/03/23 mcg-salmeterol 21 mcg/actuation HFA inhaler (Advair HFA) ipratropium 0.5 mg-albuterol 3 mg 3 ml UPD Q4H PRN PRN shortness of 08/13/23 (2.5 mg base)/3 mL nebulization breath or wheezing #90 mL soln albuterol sulfate 1.25 mg/3 mL 1.25 mg (3 mL) inhalation QID PRN 11/08/23 solution for nebulization shortness of breath or wheezing #90 mL albuterol sulfate 90 mcg/actuation 2 puff inhalation QID PRN 12/13/23 aerosol inhaler shortness of breath or wheezing #3 ea amlodipine 10 mg tablet 10 mg PO DAILY #90 tabs 01/07/24 tamsulosin 0.4 mg capsule 0.4 mg PO DAILY #90 caps 01/07/24 rosuvastatin 10 mg tablet 10 mg PO DAILY #90 tabs 03/06/24 epinephrine 0.3 mg/0.3 mL 0.3 ml IM Q5-15M PRN 04/25/24 injection, auto-injector hypersensitivity reaction #2 ea lidocaine 5 % topical patch 1 patch topical DAILY PRN back 06/15/24 pain #15 ea ondansetron 4 mg disintegrating 4 mg PO TID PRN Nausea Vomiting 5 06/15/24 tablet days #15 tabs Allergies Allergy/AdvReac Type Severity Reaction Status Date / Time Penicillins Allergy Unknown unknown Verified 06/15/24 10:58 venom-honey bee Allergy Unknown unknown Verified 06/15/24 10:58 hydrochlorothiazide AdvReac Intermediate Cough Verified 06/15/24 10:58 doxycycline AdvReac Chest Verified 06/15/24 10:58 tightness DOG DANDER Allergy Unknown unknown Uncoded 06/15/24 10:58 DUST Allergy Unknown unknown Uncoded 06/15/24 10:58 General Stated Complaint: Nk/Back Pain SHANON: 3 Review of Systems All systems reviewed & are unremarkable except as noted in HPI and below Musculoskeletal Musculoskeletal: Reports back pain Exam Narrative Exam Narrative: Constitutional: Alert and oriented x3. Appears stated age. Normal body habitus. Head: Normocephalic, no trauma. Eyes: Pupils PERRL, Red reflex noted, EOM's intact. Eyelids symmetrical without lesions, discharge, or swelling. ENT: Bilateral TM's WNL, External ear normal to inspection, no mastoid TTP, swelling, or erythema, Nasal turbinates WNL, no nasal discharge. Normal dentition, Posterior pharynx WNL, no exudate. Chest: RRR, Normal S1, S2, distal pulses intact. Resp: Lungs clear to auscultation bilaterally, no wheezes, rales, or rhonchi. Abdomen: Soft, non-distended, Normoactive bowel sounds all 4 quads. Musculoskeletal: Normal gait, Moves all 4 extremities without difficulty. Skin: No suspicious rashes or lesions. Capillary refill less than 2 sec. Neurologic: Cranial nerves II-XII intact. Alert and oriented x 3. Motor: No deficits noted. Sensory: Intact bilaterally all 4 extremities. Hematologic/Lymphatic: No ecchymosis, no lymphadenopathy. Course Vital Signs Vital signs: Vital Signs Temperature 36.8 C 06/15/24 08:56 Pulse 71 06/15/24 08:56 Respiratory Rate 20 06/15/24 08:56 Blood Pressure 139/69 06/15/24 08:56 Pulse Oximetry 90 L 06/15/24 08:56 Temperature 36.8 C 06/15/24 08:56 Pulse 71 06/15/24 08:56 Respiratory Rate 20 06/15/24 08:56 Blood Pressure 139/69 06/15/24 08:56 Pulse Oximetry 90 L 06/15/24 08:56 Medical Decision Making 83-year-old male presents to the ER companied by his family with a chief complaint of lower back pain and some prolonged sitting for a couple of days. Also reports vomiting last night. Does report that he has been around his family but has had a stomach bug with similar type symptoms. Denies any chest pain abdominal pain shortness of breath or problems urinating. No recent falls. Has not taken anything this morning for the pain. Does have a past medical history of hypertension, COPD high cholesterol. Physical exam is largely unremarkable. X-ray shows degenerative disc disease, osteopenia and retrolisthesis at T12-L1. No acute fracture identified. Patient given lidocaine patch, Tylenol and Zofran 4 mg. Will discharge patient with Zofran, lidocaine patches will discuss the alternating Tylenol and ibuprofen. Alternating ice and heat. No evidence of urinary tract infection. This text was generated using [employer]ation system, please disregard any oddities of phrase or misspellings. Imaging Data Radiologic Study: Imaging: X-Ray Radiologist's impression: Imaging protocol: Radiologic exam of the lumbosacral spine. Views: 4 or 5 views. COMPARISON: CR XR HIP PELVIS ADULT BL 03/18/2024 2:58 PM (report not provided) FINDINGS: Bones/joints: Vertebral body heights are intact. There are retrolistheses of approximately 7 mm at T12-L1 and 3 mm at L1-L2. Spinal alignment is otherwise maintained. The pedicles appear intact. No pars defect is identified. No acute fracture is identified. There is multilevel facet arthrosis, disc space narrowing and marginal osteophyte formation. The bones appear osteopenic. Soft tissues: Grossly unremarkable. Vasculature: Atherosclerotic vascular calcifications are noted. IMPRESSION: 1. Degenerative disk disease which could be better evaluated by means of MRI as clinically indicated. 2. Apparent osteopenia. Thank you for allowing us to participate in the care of your patient. 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 Son No problems noted. Daughter No problems noted. Daughter No problems noted. Social History Smoking/Tobacco Use Status: Former Tobacco Use tobacco type: cigarettes Quit Date: 05/21/80 Tobacco: How many years used: 20 Second Hand Exposure: No Smoking risk assessment performed?: Yes Alcohol Intake: current Alcohol Intake frequency: a few times a month Alcohol type: beer Drug use: Never Substance use type: does not use Caregiver/Support person: No Household members: spouse Housing: house Communication Needs: None Do you need help understanding health information?: Often Pets and animals: No Sexually active: No Do you think of yourself as: straight/heterosexual Current gender identity: male What is your relationship status?: How often do you talk on the phone with friends or family?: never How often do you get together with friends or relatives?: once per week How often do you attend jew or congregational services?: decline to answer Do you belong to any clubs or organized social groups?: no Panel score (0-1 are the most socially isolated patients): 1 What type of physical activity do you participate in: none Duration: 15-30 minutes/day Frequency: does not exercise Aruna/Ad[employer]: Denominational Special aruna needs: No Seatbelt use: always Helmet use: Yes Helmet use: sometimes Drive intox or ride w/intox motorcoach driver: No Do you feel safe at home: Yes Do you feel safe in your relationship?: Yes
[2024-06-15 10:19] LABS: Bilirubin Small (Negative); Blood Negative (Negative); Clarity Clear (Clear); Glucose Negative (Negative); Ketones 40 mg/dL (Negative); Leukocyte Esterase Trace (Negative); Nitrite Negative (Negative); Specific Gravity 1.025 (1.005-1.025); Urobilinogen 0.2 mg/dL (Up to 0.2); pH 5.5 (5-8)
[2024-06-15] MEDS: Acetaminophen 325 MG TAB 650 MG PO (10:25)
[2024-06-15] MEDS: Lidocaine 5% Patch 1 PATCH TP (10:25)
[2024-06-15] MEDS: Ondansetron O.D.T. 4 MG TABEF PO (10:26)
--- NOTE | 2024-06-15 10:29 | DI.VRAD_ITS ---
PROCEDURE INFORMATION: Exam: XR Lumbosacral Spine Exam date and time: 06/15/2024 10:00 AM Age: 83 years old Clinical indication: Low back pain TECHNIQUE: Imaging protocol: Radiologic exam of the lumbosacral spine. Views: 4 or 5 views. COMPARISON: CR XR HIP PELVIS ADULT BL 03/18/2024 2:58 PM (report not provided) FINDINGS: Bones/joints: Vertebral body heights are intact. There are retrolistheses of approximately 7 mm at T12-L1 and 3 mm at L1-L2. Spinal alignment is otherwise maintained. The pedicles appear intact. No pars defect is identified. No acute fracture is identified. There is multilevel facet arthrosis, disc space narrowing and marginal osteophyte formation. The bones appear osteopenic. Soft tissues: Grossly unremarkable. Vasculature: Atherosclerotic vascular calcifications are noted. IMPRESSION: 1. Degenerative disk disease which could be better evaluated by means of MRI as clinically indicated. 2. Apparent osteopenia. Dictated and Authenticated by: Chiki Vergara MD. Ordering:OUMAR Winkler MD
[2024-06-15 10:32] LABS: Bacteria Negative HPF (Negative); C & S Indicated? No; Casts Negative LPF (Negative); Crystals Negative HPF (Negative); Epithelial Cells Few HPF (Negative); Mucus Moderate (Negative); RBC 0-2 HPF (0-2)
[2024-06-15 10:54] VITALS: BP 122/47; PULSE 71; RESP 18; TEMP 36.6; O2SAT 96
== END 2024-06-15 10:59 | disposition home or self-care (01) ==
PROVIDERS: Emergency Provider Registered Nurse Emergency; PCP Nurse Practitioner Family
DX: M47.816 Spondylosis without myelopathy or radiculopathy, lumbar region (principal); M54.50 Low back pain, unspecified
CPT/HCPCS: 99283; 72110; 81003; 81015

== ENCOUNTER → 2024-08-28 10:01 | Outpatient (BNVA) | payer MEDICARE, OTHER, SELFPAY | PROVIDERS: PCP Nurse Practitioner Family; Referring Provider Nurse Practitioner Family; Visit Provider Student in an Organized Health Care Education/Training Program | DX: L57.0 Actinic keratosis; D18.01 Hemangioma of skin and subcutaneous tissue | CPT/HCPCS: 11402; 11422; 11441 ==

== ENCOUNTER 2024-08-28 11:50 | Outpatient (REF) | payer MEDICARE, OTHER, SELFPAY ==
--- NOTE | 2024-08-28 11:15 | SKI_PTH ---
PATIENT: Dagoberto May LOC: [facility] U#:[id number] AGE/SX: 83/M ROOM: RE08/28/[address]: Rashard Hoover : 1940 BED: DIS: 08/28/2024 SPEC #: [id number] RECD: 08/28/24 17:00 STATUS: RITA ESTRELLA #: [id number] MARGUERITE: 08/28/24 11:[address]: Rashard Hoover DEPT: Surgical Specimen RECD BY: Johnna Hoffman ENTERED: 08/28/24 17:01 SP TYPE: ADY ALVAREZ DR: Vivienne Wells, GRIP Tissues: 1 - SKIN BIOPSY(SHAVE/PUNCH) 2 - SKIN BIOPSY(SHAVE/PUNCH) 3 - SKIN BIOPSY(SHAVE/PUNCH) Procedures: SKIN LEVEL 4 Comments: [id number]
== END 2024-08-28 11:51 | disposition home or self-care (01) ==
LOC: LBN 11:50
PROVIDERS: PCP Nurse Practitioner Family; Visit Provider Student in an Organized Health Care Education/Training Program
DX: L82.1 Other seborrheic keratosis (principal); L98.9 Disorder of the skin and subcutaneous tissue, unspecified
CPT/HCPCS: 88305

== ENCOUNTER 2024-10-23 08:48 | Inpatient (IN) | payer MEDICARE, OTHER, SELFPAY ==
[2024-10-23] VITALS (130 sets, daily range): BP systolic 75–147; BP diastolic 17–117; PULSE 56–125; RESP 13–41; TEMP 31–38.6; O2SAT 80–98
--- NOTE | 2024-10-23 08:45 | RT.EKG_ITS ---
APPROVED REPORT Exam: Resting ECG Reason for Exam: SOB Patient Location: I HR:101 bpm ECG Measurements Heart Rate 101 AXIS NH 57 P 73 QRSd 91 QRS 6 QT 342 T 208 QTc 444 Conclusion Sinus tachycardia...rate> 99 Nonspecific repol abnormality, diffuse leads...ST dep, T flat/neg, ant/lat/inf
--- NOTE | 2024-10-23 09:16 | W.ED.GENAD ---
Discharge Plan Disposition Patient Disposition: Admit to [facility] Condition: Critical Discharge Details Clinical Impression: Left lower lobe pneumonia, Back pain, Acute alteration in mental status, Hypoxia, Septic shock, Hematuria Admit Date/Time: 10/23/24 13:16 Admit Provider: Josiah Atkinson Attending Provider: Josiah Atkinson Primary Care Provider: Vivienne Wells ED Provider: Heriberto Hdz Discharge Data Discharge Date/Time-TO BE ENTERED AT DEPARTURE: 10/23/24 14:33 HPI General Mode of arrival: ambulatory. Date/Time Provider Initiated Documentation: 10/23/24 08:49. Limitations to Documentation: altered mental status. Information obtained by: patient. HPI Narrative: 83-year-old male with multiple medical problems including history of COPD, obstructive sleep apnea on CPAP, hypertension, hyperlipidemia, type 2 diabetes, here with chief complaint of bilateral low back pain. EMS found patient to be saturating 87% room air with crackles noted in his bases. History limited secondary to poor historian and altered mentation. Patient denies chest pain. He does have some shortness of breath. Related Data Home Medications ?Medication ?Instructions ?Recorded ?Confirmed Centrum Silver Tablet 1 tab PO DAILY 08/21/12 10/23/24 ipratropium 0.5 mg-albuterol 3 mg 3 ml UPD Q4H PRN PRN shortness of 08/13/23 10/23/24 (2.5 mg base)/3 mL nebulization breath or wheezing #90 mL soln albuterol sulfate 1.25 mg/3 mL 1.25 mg (3 mL) inhalation QID PRN 11/08/23 10/23/24 solution for nebulization shortness of breath or wheezing #90 mL tiotropium bromide 2.5 2 puff inhalation DAILY 11/08/23 10/23/24 mcg/actuation mist for inhalation amlodipine 10 mg tablet 10 mg PO DAILY #90 tabs 01/07/24 10/23/24 rosuvastatin 10 mg tablet 10 mg PO DAILY #90 tabs 03/06/24 10/23/24 epinephrine 0.3 mg/0.3 mL 0.3 ml IM Q5-15M PRN 04/25/24 10/23/24 injection, auto-injector hypersensitivity reaction #2 ea lidocaine 5 % topical patch 1 patch topical DAILY PRN back 06/15/24 10/23/24 pain #15 ea fluticasone propionate 230 2 puff inhalation BID #36 grams 06/30/24 10/23/24 mcg-salmeterol 21 mcg/actuation HFA inhaler (Advair HFA) roflumilast 500 mcg tablet 500 mcg PO DAILY 07/28/24 10/23/24 albuterol sulfate 90 mcg/actuation 2 puff inhalation QID PRN 08/21/24 10/23/24 aerosol inhaler shortness of breath or wheezing #3 ea tamsulosin 0.4 mg capsule 0.4 mg PO DAILY #90 caps 09/12/24 10/23/24 mirtazapine 7.5 mg tablet 7.5 mg PO QHS #7 tabs 10/27/24 furosemide 20 mg tablet 20 mg PO DAILY #30 tabs 10/28/24 Previous Rx's ?Medication ?Instructions ?Recorded ipratropium 0.5 mg-albuterol 3 mg 3 ml UPD Q4H PRN PRN shortness of 08/13/23 (2.5 mg base)/3 mL nebulization breath or wheezing #90 mL soln albuterol sulfate 1.25 mg/3 mL 1.25 mg (3 mL) inhalation QID PRN 11/08/23 solution for nebulization shortness of breath or wheezing #90 mL amlodipine 10 mg tablet 10 mg PO DAILY #90 tabs 01/07/24 rosuvastatin 10 mg tablet 10 mg PO DAILY #90 tabs 03/06/24 epinephrine 0.3 mg/0.3 mL 0.3 ml IM Q5-15M PRN 04/25/24 injection, auto-injector hypersensitivity reaction #2 ea lidocaine 5 % topical patch 1 patch topical DAILY PRN back 06/15/24 pain #15 ea fluticasone propionate 230 2 puff inhalation BID #36 grams 06/30/24 mcg-salmeterol 21 mcg/actuation HFA inhaler (Advair HFA) albuterol sulfate 90 mcg/actuation 2 puff inhalation QID PRN 08/21/24 aerosol inhaler shortness of breath or wheezing #3 ea tamsulosin 0.4 mg capsule 0.4 mg PO DAILY #90 caps 09/12/24 mirtazapine 7.5 mg tablet 7.5 mg PO QHS #7 tabs 10/27/24 furosemide 20 mg tablet 20 mg PO DAILY #30 tabs 10/28/24 Allergies Allergy/AdvReac Type Severity Reaction Status Date / Time Penicillins Allergy Unknown unknown Verified 09/04/24 11:03 venom-honey bee Allergy Unknown unknown Verified 09/04/24 11:03 hydrochlorothiazide AdvReac Intermediate Cough Verified 09/04/24 11:03 doxycycline AdvReac Chest Verified 09/04/24 11:03 tightness DOG DANDER Allergy Unknown unknown Uncoded 09/04/24 11:03 DUST Allergy Unknown unknown Uncoded 09/04/24 11:03 General Stated Complaint: Nk/Back Pain SHANON: 3 Review of Systems Unobtainable due to mental status Exam Const General: cooperative Orientation: alert and awake HENMT Head: normocephalic and atraumatic Mouth: mucous membranes dry Eyes Conjunctivae: normal conjunctivae Sclera: normal sclerae Neck Neck: trachea midline and supple Resp Auscultation: diminished lung sounds on the right, rales on the left and no rhonchi Cardio Rate: tachycardic Rhythm: regular rhythm Heart Sounds: S1 normal, S2 normal, no gallops, no murmurs and no rubs GI Palpation: soft, not firm, no guarding, no masses, not rigid and nontender Skin General skin exam: no rashes or lesions noted Neuro General: patient alert, patient awake, oriented Patient Orientation: Person and Place and tone normal Extrem General: no calf tenderness and no edema Course Vital Signs Vital signs: Vital Signs Temperature 38.6 C H 10/23/24 08:51 Pulse 102 H 10/23/24 08:51 Respiratory Rate 22 10/23/24 08:51 Blood Pressure 114/33 L 10/23/24 08:51 Pulse Oximetry 92 10/23/24 08:51 Temperature 38.6 C H 10/23/24 08:51 Temperature Source Tympanic 10/23/24 08:51 Pulse 102 H 10/23/24 08:51 Respiratory Rate 22 10/23/24 08:51 Blood Pressure 114/33 L 10/23/24 08:51 Blood Pressure Position Sitting 10/23/24 08:51 Pulse Oximetry 92 10/23/24 08:51 Oxygen Delivery Method Nasal Cannula 10/23/24 08:51 Oxygen Flow Rate 3 10/23/24 08:51 Lab/Test Results Lab/Test Results: 10/23/24 09:03 Blood Blood Culture - Pending 10/23/24 09:03 Blood Blood Culture - Pending Medical Decision Making 919? 83-year-old male with multiple medical problems including history of COPD, sleep apnea on CPAP, hyperlipidemia, hypertension, diabetes, here with bilateral low flank pain, febrile, left lung rales, altered mental status. Unclear baseline mental status at this point. Patient is tachycardic and normotensive. He is febrile. Hypoxic saturating in the 80s on room air, low 90s on 3 L nasal cannula oxygen. Concern for pneumonia versus UTI. Consider sepsis. Blood cultures and lactate pending. Chest x-ray pending. UA pending. Patient does appear dehydrated. I will give IV fluid bolus. Screening EKG was reviewed and interpreted by me: Please report, sinus tachycardia 101 bpm, nonspecific repolarization abnormality diffuse leads. I reviewed outside hospital record, [facility] [place] from 10/21/2024, lungs are noted to be diminished bilaterally with scattered rhonchi. Patient was noted to be alert and oriented in no apparent distress. 1100 --labs reviewed and hypokalemia and hypomagnesemia noted. Will give magnesium 1 g IV. MAP decreasing. Patient receiving IV fluid bolus at 500 mL an hour. Will increase rate. Should patient not respond to IV fluid bolus, he may require norepinephrine infusion. Chest x-ray was reviewed and interpreted by radiology: Left lower lobe pneumonia. Plan to initiate early goal-directed treatment with Levaquin IV --it sounds like patient has anaphylactic reaction to penicillins. --I spoke with the hospitalist on-call, Dr. Sahni, discussed ED presentation course, he will admit the patient. 1250 --patient was reassessed and had persistent hypotension despite IV fluid bolus. Levophed infusion initiated and patient reassessed. MAP much improved on Levophed. Hospitalist updated. Patient delirious with waxing and waning mentation. Patient requiring soft restraints to prevent removal of IVs. Patient is anxious and having discomfort in his back. I will provide Versed 1 mg IV for anxiety and acetaminophen for pain. Hematuria noted. Unclear etiology. Lab Data Lab results reviewed: Yes I reviewed the patient's lab results. Labs: 10/23/24 10:50 Blood Blood Culture - Pending 10/23/24 09:16 Blood Blood Culture - Pending Laboratory Tests Range/Units 10/23/24 10/23/24 10/23/24 09:16 10:04 11:03 WBC Cancelled 13.04 H RBC Cancelled 4.11 L Hgb Cancelled 12.6 L Hct Cancelled 38.2 L MCV Cancelled 93 MCH Cancelled 30.7 MCHC Cancelled 33.0 RDW Cancelled 13.2 Plt Count Cancelled 157 MPV Cancelled 8.9 Immature Gran % Cancelled 0.5 Neutrophils % Cancelled 84.5 Band Neutrophils % Cancelled Lymphocytes % Cancelled 7.9 Atypical Lymphs % Cancelled Monocytes % Cancelled 6.6 Eosinophils % Cancelled 0.2 Basophils % Cancelled 0.3 Metamyelocytes % Cancelled Myelocytes % Cancelled Promyelocytes % Cancelled Other Cells % Cancelled Nucleated RBC % Cancelled 0.0 Absolute Neutrophils Cancelled 11.02 H Absolute Lymphocytes Cancelled 1.03 L Absolute Monocytes Cancelled 0.86 H Absolute Eosinophils Cancelled 0.03 Absolute Basophils Cancelled 0.04 RBC Morphology Cancelled Polychromasia Cancelled Hypochromasia Cancelled Poikilocytosis Cancelled Basophilic Stippling Cancelled Anisocytosis Cancelled Microcytosis Cancelled Macrocytosis Cancelled Spherocytes Cancelled Tear Drop Cells Cancelled Ovalocytes Cancelled Stomatocytes Cancelled [place] Bodies Cancelled Lm Cells/Echinocytes Cancelled Acanthocytes (Spur) Cancelled Schistocytes Cancelled VBG pH (7.31-7.41) 7.38 VBG pCO2 (41-51) mmHg 48 VBG pO2 mmHg 74 VBG HCO3 (23-28) mmol/L 28 VBG Total CO2 (24-29) mmol/L 25 VBG O2 Saturation % 95 VBG Base Excess (-2-3) mmol/L 3 VBG Lactate (<or=2.0) mmol/L 1.9 Sodium (136-145) mmol/L 145 Potassium (3.5-5.1) mmol/L 3.2 L Chloride (98-107) mmol/L 106 Carbon Dioxide (21.0-32.0) mmol/L 29.3 Anion Gap (3-11) mmol/L 9.7 BUN (7-18) mg/dL 15 Creatinine (0.70-1.30) mg/dL 0.8 Est GFR (CKD-EPI 2020) (mL/min/1.73m2) 86.73 Glucose (74-106) mg/dL 144 H Calcium (8.5-10.1) mg/dL 9.2 Magnesium (1.8-2.4) mg/dL 1.4 L Total Bilirubin (0.2-1.0) mg/dL 1.0 AST (15-37) U/L 27 ALT (16-63) U/L 18 Alkaline Phosphatase (46-116) U/L 57 Troponin I (<or=76) ng/L 12 NT-Pro-B Natriuret Pep (<300) pg/mL 713 H Total Protein (6.4-8.2) g/dL 7.0 Albumin (3.4-5.0) g/dL 3.2 L Urine Color (Yellow) Urine Clarity (Clear) Urine pH (5-8) Ur Specific [address] (1.005-1.025) Urine Protein (Neg-Trace) mg/dL Urine Ketones (Negative) mg/dL Urine Blood (Negative) Urine Nitrite (Negative) Urine Bilirubin (Negative) Urine Urobilinogen (Up to 0.2) mg/dL Ur Leukocyte Esterase (Negative) Urine RBC (0-2) HPF Urine WBC (0-5) HPF Ur Epithelial Cells (Negative) HPF Urine Crystals (Negative) HPF Urine Bacteria (Negative) HPF Urine Casts (Negative) LPF Urine Mucus (Negative) Urine Other (Negative) Ur Culture Indicated? Urine Glucose (Negative) mg/dL COVID-19 Source Nasopharynx SARS-CoV-2 (PCR) (Negative) Negative Influenza Type A (PCR) (Negative) Negative Influenza Type B (PCR) (Negative) Negative RSV (PCR) (Negative) Negative Range/Units 10/23/24 11:24 WBC RBC Hgb Hct MCV MCH MCHC RDW Plt Count MPV Immature Gran % Neutrophils % Band Neutrophils % Lymphocytes % Atypical Lymphs % Monocytes % Eosinophils % Basophils % Metamyelocytes % Myelocytes % Promyelocytes % Other Cells % Nucleated RBC % Absolute Neutrophils Absolute Lymphocytes Absolute Monocytes Absolute Eosinophils Absolute Basophils RBC Morphology Polychromasia Hypochromasia Poikilocytosis Basophilic Stippling Anisocytosis Microcytosis Macrocytosis Spherocytes Tear Drop Cells Ovalocytes Stomatocytes [place] Bodies [place] Cells/Echinocytes Acanthocytes (Spur) Schistocytes VBG pH (7.31-7.41) VBG pCO2 (41-51) mmHg VBG pO2 mmHg VBG HCO3 (23-28) mmol/L VBG Total CO2 (24-29) mmol/L VBG O2 Saturation % VBG Base Excess (-2-3) mmol/L VBG Lactate (<or=2.0) mmol/L Sodium (136-145) mmol/L Potassium (3.5-5.1) mmol/L Chloride (98-107) mmol/L Carbon Dioxide (21.0-32.0) mmol/L Anion Gap (3-11) mmol/L BUN (7-18) mg/dL Creatinine (0.70-1.30) mg/dL Est GFR (CKD-EPI 2020) (mL/min/1.73m2) Glucose (74-106) mg/dL Calcium (8.5-10.1) mg/dL Magnesium (1.8-2.4) mg/dL Total Bilirubin (0.2-1.0) mg/dL AST (15-37) U/L ALT (16-63) U/L Alkaline Phosphatase (46-116) U/L Troponin I (<or=76) ng/L NT-Pro-B Natriuret Pep (<300) pg/mL Total Protein (6.4-8.2) g/dL Albumin (3.4-5.0) g/dL Urine Color (Yellow) Yellow Urine Clarity (Clear) Clear Urine pH (5-8) 5.[address] (1.005-1.025) 1.020 Urine Protein (Neg-Trace) mg/dL >=300 H Urine Ketones (Negative) mg/dL Trace H Urine Blood (Negative) Large H Urine Nitrite (Negative) Negative Urine Bilirubin (Negative) Small H Urine Urobilinogen (Up to 0.2) mg/dL 0.2 Ur Leukocyte Esterase (Negative) Negative Urine RBC (0-2) HPF 20-50 H Urine WBC (0-5) HPF Negative Ur Epithelial Cells (Negative) HPF Negative Urine Crystals (Negative) HPF Negative Urine Bacteria (Negative) HPF Rare Urine Casts (Negative) LPF Negative Urine Mucus (Negative) Trace Urine Other (Negative) Negative Ur Culture Indicated? No Urine Glucose (Negative) mg/dL Negative COVID-19 Source SARS-CoV-2 (PCR) (Negative) Influenza Type A (PCR) (Negative) Influenza Type B (PCR) (Negative) RSV (PCR) (Negative) Quality:SDOH Health Related Social Needs: Health related social needs transpo insecurity Health related social needs details none Critical Care Time Critical Care Time Critical Care Time: Yes Total Critical Care Time: 80 Attestation: Due to a high probability of clinically significant, life threatening deterioration, the patient required my highest level of preparedness to intervene emergently and I personally spent this critical care time directly and personally managing the patient. This critical care time included obtaining a history; examining the patient; pulse oximetry; ordering and review of studies; arranging urgent treatment with development of a management plan; evaluation of patient's response to treatment; frequent reassessment; and, discussions with other providers. This critical care time was performed to assess and manage the high probability of imminent, life-threatening deterioration that could result in multi-organ failure. It was exclusive of separately billable procedures and treating other patients and teaching time. Please see MDM section and the rest of the note for further information on patient assessment and treatment. 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 Son No problems noted. Daughter No problems noted. Daughter No problems noted. Social History (Updated 10/23/24 @ 13:48 by Josiah Atkinson) Smoking/Tobacco Use Status: Former Tobacco Use tobacco type: cigarettes Quit Date: 05/21/80 Tobacco: How many years used: 20 Second Hand Exposure: No Smoking risk assessment performed?: Yes Alcohol Intake: current Alcohol Intake frequency: a few times a month Alcohol type: beer Details: none in over a month Drug use: Never Substance use type: does not use Caregiver/Support person: No Household members: spouse Housing: house Communication Needs: None Do you need help understanding health information?: Often Pets and animals: No Sexually active: No Do you think of yourself as: straight/heterosexual Current gender identity: male What is your relationship status?: How often do you talk on the phone with friends or family?: never How often do you get together with friends or relatives?: once per week How often do you attend sabianism or muslim services?: decline to answer Do you belong to any clubs or organized social groups?: no Panel score (0-1 are the most socially isolated patients): 1 What type of physical activity do you participate in: none Duration: 15-30 minutes/day Frequency: does not exercise Aruna/Confucianism: Faith Special aruna needs: No Seatbelt use: always Helmet use: Yes Helmet use: sometimes Drive intox or ride w/intox trolley coach driver: No Do you feel safe at home: Yes Do you feel safe in your relationship?: Yes Additional Social history: Lives with Sergio, daughter also close. Retired , construction
[2024-10-23 09:24] LABS: Lactate 1.9 mmol/L (<or=2.0)
[2024-10-23] MEDS: Lactated Ringers 1,000 ML 1000 ML IV (09:33)
[2024-10-23 09:46] LABS: ALT 18 U/L (16-63); AST 27 U/L (15-37); Albumin 3.2 g/dL (3.4-5.0); Alkaline Phosphatase 57 U/L (46-116); Anion Gap 9.7 mmol/L (3-11); BUN 15 mg/dL (7-18); CO2 29.3 mmol/L (21.0-32.0); CREATININE 0.8 mg/dL (0.70-1.30); Calcium 9.2 mg/dL (8.5-10.1); Chloride 106 mmol/L (98-107); Estimated GFR 86.73 (mL/min/1.73m2); Glucose 144 mg/dL (74-106); Magnesium 1.4 mg/dL (1.8-2.4); Potassium 3.2 mmol/L (3.5-5.1); Sodium 145 mmol/L (136-145); Troponin I 12 ng/L (<or=76)
[2024-10-23] MEDS: Lactated Ringers 500 ML 1000 ML IV ×2 (10:00→11:00)
--- NOTE | 2024-10-23 10:00 | DI.RAD_ITS ---
Exam(s) XR PORTABLE CHEST AP EXAM: XR PORTABLE CHEST AP CLINICAL HISTORY: COPD exacerbation TECHNIQUE: 2D digital imaging was performed of the chest. One image was obtained. An AP view was ob tained. COMPARISON: CR XR CHEST 2V PA LATERAL from 02/19/2023 FINDINGS: MEDIASTINUM: Normal. HEART: Normal. PULMONARY VASCULATURE: Normal. LUNGS: There is an infiltrate seen in the left lung base suspicious for pneumonia. The right lung is clear. PLEURAL SPACE: No pleural effusion or pneumothorax. BONE:Within normal limits for the patient's age. OTHER FINDINGS:Normal. IMPRESSION: 1. Left basilar pneumonia. 2. Findings were discussed with Dr. Hdz at 10:58 a.m. on 10/23/2024. DATA REPOSITORY: RADIATION DOSE DELIVERED:
[2024-10-23] MEDS: MAGNESIUM SULFATE 1 GM/100 ML BAG IV_INF (10:35)
[2024-10-23 10:51] LABS: COVID-19 PCR Negative (Negative); Influenza A PCR Negative (Negative); Influenza B PCR Negative (Negative); RSV PCR Negative (Negative)
[2024-10-23 10:53] LABS: Source Nasopharynx
[2024-10-23 11:16] LABS: BE (Venous) 3 mmol/L (-2-3); HCO3 (Venous) 28 mmol/L (23-28); O2 Sat (Venous) 95 %; TCO2 (Venous) 25 mmol/L (24-29); pCO2 (Venous) 48 mmHg (41-51); pH (Venous) 7.38 (7.31-7.41); pO2 (Venous) 74 mmHg
[2024-10-23 11:17] LABS: Abs Immature Grans 0.07 10^3/uL (0.0-0.06); Absolute Basophil Count 0.04 10^3/uL (0.0-0.2); Absolute Eosinophil Count 0.03 10^3/uL (0.0-0.7); Absolute Lymphocyte Count 1.03 10^3/uL (1.2-3.4); Absolute Monocyte Count 0.86 10^3/uL (0.1-0.8); Absolute Neutrophil Count 11.02 10^3/uL (1.2-6.7); Basophils % 0.3 %; Eosinophils % 0.2 %; HCT 38.2 % (40.0-50.0); HGB 12.6 g/dL (13.5-17.5); Immature Grans % 0.5 %; Lymphocytes % 7.9 %; MCH 30.7 pg (27.0-33.0); MCV 93 fL (80-95); MPV 8.9 fL (8.0-11.0); Monocytes % 6.6 %; Neutrophils % 84.5 %; Platelet Count 157 10^3/uL (130-400); RBC 4.11 10^6/uL (4.36-5.78); RDW 13.2 % (11.8-14.1); RDW-SD 44.8 fL; WBC 13.04 10^3/uL (4.4-10.8)
[2024-10-23 11:39] LABS: Bilirubin Small (Negative); Blood Large (Negative); Clarity Clear (Clear); Glucose Negative (Negative); Ketones Trace mg/dL (Negative); Leukocyte Esterase Negative (Negative); Nitrite Negative (Negative); Urobilinogen 0.2 mg/dL (Up to 0.2); pH 5.5 (5-8)
[2024-10-23 11:43] LABS: NT-proBNP 713 pg/mL (<300)
[2024-10-23] MEDS: Norepinephrine in D5W 8 MG/250 ML BAG 9.375 MG IV (11:57)
[2024-10-23 12:09] LABS: Bacteria Rare HPF (Negative); C & S Indicated? No; Casts Negative LPF (Negative); Crystals Negative HPF (Negative); Epithelial Cells Negative HPF (Negative); Mucus Trace (Negative); Other Cells Negative (Negative); RBC 20-50 HPF (0-2); WBC Negative HPF (0-5)
[2024-10-23] MEDS: levoFLOXacin 750 MG/150 ML BAG 100 MG IVPB (12:12)
[2024-10-23] MEDS: Midazolam 2 MG/2 ML VIAL 1 MG IVP (12:31)
[2024-10-23] MEDS: ACETAMINOPHEN 1,000 MG/100 ML BAG 400 MG IVPB (12:31)
--- NOTE | 2024-10-23 13:24 | W.PM.HP.N ---
Date of service: 10/23/24 Time of Service: 13:24 Assessment and Plan Assessment and plan (1) Septic shock: Status: Acute Assessment and plan: SIRS with focal pneumonia, hypotension despite fluid resuscitation. Total of 3 liters of isotonic ordered, though not all given yet, continue this. No known CHF and he still looks dry. Started on norepinephrine to maintain MAPs => 65 Admit to ICU Confirmed code status per advanced directive, DNR (2) Left lower lobe pneumonia: Status: Acute Assessment and plan: Significant PCN allergy so started on levofloxacin. I will add vancomycin for now given sepsis. Get sputum culture if we can. (3) COPD with exacerbation: Status: Acute Assessment and plan: With hypoxia, possible COPD exacerbation component, and hypotension I ordered hydrocortisone 100mg now and continue IV. Transition to oral prednisone when improving. Continue bronchidilators including nebs if they are helping. Holding roflumilast with acute illness (4) Acute hypoxic respiratory failure: Status: Acute Assessment and plan: As above Get VBG with MS changes and COPD to make sure not retaining CO2 (5) Obstructive sleep apnea on CPAP: Status: Chronic Assessment and plan: home CPAP (6) Type 2 diabetes mellitus: Status: Chronic Assessment and plan: Has been well controlled without meds as outpatient, but will be on steroids. check sugars q6 and use ISS for now. (7) Essential hypertension: Status: Chronic Assessment and plan: Holding BP meds as hypotensive now (8) DVT prophylaxis: Status: Acute Assessment and plan: enoxaparin (9) Hypomagnesemia: Status: Acute (10) Hypokalemia: Status: Acute History of Present Illness History of Present Illness Chief Complaint: weakness, altered mental status Narrative: 83 yo M with history of COPD (no home O2), type 2 DM with A1c 6.5% not on medication, BPH and hypertension who presented via ambulance with general weakness that started early this morning. He was well yesterday until he woke up at 2am feeling nauseous and generally weak. His brought him a vomit bag but he never vomited. At 4:30 he tried to get up to urinate, had to help him to the toilet to urinate. After that she helped him to a chair and he couldn't get up so she called EMS. On arrival his mental status was depressed. He did mention some back pain to the ED staff but currently denies pain in his back, chest, head, neck, abdomen, or elsewhere to direct questioning. He has had a cough with some sputum, but this is common for him and wasn't more than normal yesterday. He feels chilled, some nausea, no diarrhea. He has not noted any changes in urination or bowel function. On initially catheterization of his bladder there was bleeding, but the berry went in easily per RN after that and no blood in the actual urine. Of note he usually has pneumonia once/year in the winter but hasn't had pneumonia or needed prednisone for about a year. He saw his Pulmonology last week at [facility] and no changes were made. No travel or known sick contacts. Review of Systems All systems reviewed & are unremarkable except as noted in HPI and below Integumentary/Breasts Skin/Breast: Denies rash Comments: had biospies 6 weeks ago on left calf and face, non-cancerous result. 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) Trochanteric bursitis, right hip (Chronic) Primary osteoarthritis of right knee (Chronic) Primary osteoarthritis of right hip (Chronic) Type 2 diabetes mellitus (Chronic) Obstructive sleep apnea on CPAP (Chronic ~01/2022) COPD (chronic obstructive pulmonary disease) (Chronic) Hyperlipidemia (Chronic) BPH loc w/o ur obs/LUTS (Chronic) Essential hypertension (Chronic) Osteoarthritis (Chronic) Medical History History of tobacco use 25 packyr hx, quit age 38 Surgical History S/P colonoscopy S/P cataract surgery Family History Mother Pulmonary fibrosis Intestinal cancer Father Diabetes Heart disease Hypertension Sister Brain cancer Brother No problems noted. Son No problems noted. Daughter No problems noted. Daughter No problems noted. Social History (Updated 10/23/24 @ 13:48 by Josiah Atkinson) Smoking/Tobacco Use Status: Former Tobacco Use tobacco type: cigarettes Quit Date: 05/21/80 Tobacco: How many years used: 20 Second Hand Exposure: No Smoking risk assessment performed?: Yes Alcohol Intake: current Alcohol Intake frequency: a few times a month Alcohol type: beer Details: none in over a month Drug use: Never Substance use type: does not use Caregiver/Support person: No Household members: spouse Housing: house Communication Needs: None Do you need help understanding health information?: Often Pets and animals: No Sexually active: No Do you think of yourself as: straight/heterosexual Current gender identity: male What is your relationship status?: How often do you talk on the phone with friends or family?: never How often do you get together with friends or relatives?: once per week How often do you attend mandaen or latter-day services?: decline to answer Do you belong to any clubs or organized social groups?: no Panel score (0-1 are the most socially isolated patients): 1 What type of physical activity do you participate in: none Duration: 15-30 minutes/day Frequency: does not exercise Aruna/Denominational: Protestant Special aruna needs: No Seatbelt use: always Helmet use: Yes Helmet use: sometimes Drive intox or ride w/intox motor pool driver: No Do you feel safe at home: Yes Do you feel safe in your relationship?: Yes Additional Social history: Lives with Sergio, daughter also close. Retired , construction Meds Allergies and Home Medications Allergies Allergy/AdvReac Type Severity Reaction Status Date / Time Penicillins Allergy Unknown unknown Verified 09/04/24 11:03 venom-honey bee Allergy Unknown unknown Verified 09/04/24 11:03 hydrochlorothiazide AdvReac Intermediate Cough Verified 09/04/24 11:03 doxycycline AdvReac Chest Verified 09/04/24 11:03 tightness DOG DANDER Allergy Unknown unknown Uncoded 09/04/24 11:03 DUST Allergy Unknown unknown Uncoded 09/04/24 11:03 Home Medications ?Medication ?Instructions ?Recorded ?Confirmed ?Type Centrum Silver Tablet 1 tab PO DAILY 08/21/12 10/23/24 History ipratropium 0.5 mg-albuterol 3 mg 3 ml UPD Q4H PRN PRN shortness of 08/13/23 10/23/24 Rx (2.5 mg base)/3 mL nebulization breath or wheezing #90 mL soln albuterol sulfate 1.25 mg/3 mL 1.25 mg (3 mL) inhalation QID PRN 11/08/23 10/23/24 Rx solution for nebulization shortness of breath or wheezing #90 mL tiotropium bromide 2.5 2 puff inhalation DAILY 11/08/23 10/23/24 History mcg/actuation mist for inhalation amlodipine 10 mg tablet 10 mg PO DAILY #90 tabs 01/07/24 10/23/24 Rx rosuvastatin 10 mg tablet 10 mg PO DAILY #90 tabs 03/06/24 10/23/24 Rx epinephrine 0.3 mg/0.3 mL 0.3 ml IM Q5-15M PRN 04/25/24 10/23/24 Rx injection, auto-injector hypersensitivity reaction #2 ea lidocaine 5 % topical patch 1 patch topical DAILY PRN back 06/15/24 10/23/24 Rx pain #15 ea fluticasone propionate 230 2 puff inhalation BID #36 grams 06/30/24 10/23/24 Rx mcg-salmeterol 21 mcg/actuation HFA inhaler (Advair HFA) roflumilast 500 mcg tablet 500 mcg PO DAILY 07/28/24 10/23/24 History albuterol sulfate 90 mcg/actuation 2 puff inhalation QID PRN 08/21/24 10/23/24 Rx aerosol inhaler shortness of breath or wheezing #3 ea tamsulosin 0.4 mg capsule 0.4 mg PO DAILY #90 caps 09/12/24 10/23/24 Rx Exam Narrative Exam Narrative: GEN: Lying in trendelenburg with eyes shut, but opens to voice, oriented to self, place, and time/year but cannot give full history from today. Currently pleasant and cooperative with exam. HEENT: Head atraumatic. Conjunctiva clear, no icterus. PEERL, EOMI. no rhinorrhea. MM dry, OP dry but no lesions. Neck is supple with no masses or lymphadenopathy, moves neck without pain, trachea midline. Lymph: no LAD neck, axilla, groin LUNGS: Rales in bases juan j, left more than right. Slight exp wheezes in bases. Mild tachypnea in 20s with oxymask with 4L CV: RRR with no murmurs, gallops, or rubs, though distant ABD: active bowel sounds, soft, nontender and nondistended. No masses. EXT: no cyanosis, clubbing, or edema. Extremities warm. MSK: No joint redness or swelling NEURO: CN 2-12 grossly intact. Normal movement of 4 extremities. Normal speech and coordination. No tremor SKIN: No rashes or open wounds. Biopsy sites healed. PSYCH: normal mood and affect, though sedated. Results Labs 10/23/24 11:03 10/23/24 09:16 Labs: Laboratory Results - last 24 hr 10/23/24 10/23/24 10/23/24 09:16 10:04 11:03 WBC Cancelled 13.04 H RBC Cancelled 4.11 L Hgb Cancelled 12.6 L Hct Cancelled 38.2 L MCV Cancelled 93 MCH Cancelled 30.7 MCHC Cancelled 33.0 RDW Cancelled 13.2 Plt Count Cancelled 157 MPV Cancelled 8.9 Immature Gran % Cancelled 0.5 Neutrophils % Cancelled 84.5 Band Neutrophils % Cancelled Lymphocytes % Cancelled 7.9 Atypical Lymphs % Cancelled Monocytes % Cancelled 6.6 Eosinophils % Cancelled 0.2 Basophils % Cancelled 0.3 Metamyelocytes % Cancelled Myelocytes % Cancelled Promyelocytes % Cancelled Other Cells % Cancelled Nucleated RBC % Cancelled 0.0 Absolute Neutrophils Cancelled 11.02 H Absolute Lymphocytes Cancelled 1.03 L Absolute Monocytes Cancelled 0.86 H Absolute Eosinophils Cancelled 0.03 Absolute Basophils Cancelled 0.04 RBC Morphology Cancelled Polychromasia Cancelled Hypochromasia Cancelled Poikilocytosis Cancelled Basophilic Stippling Cancelled Anisocytosis Cancelled Microcytosis Cancelled Macrocytosis Cancelled Spherocytes Cancelled Tear Drop Cells Cancelled Ovalocytes Cancelled Stomatocytes Cancelled [place] Bodies Cancelled Triplett Cells/Echinocytes Cancelled Acanthocytes (Spur) Cancelled Schistocytes Cancelled VBG pH 7.38 VBG pCO2 48 VBG pO2 74 VBG HCO3 28 VBG Total CO2 25 VBG O2 Saturation 95 VBG Base Excess 3 VBG Lactate 1.9 Sodium 145 Potassium 3.2 L Chloride 106 Carbon Dioxide 29.3 Anion Gap 9.7 BUN 15 Creatinine 0.8 Est GFR (CKD-EPI 2020) 86.73 Glucose 144 H Calcium 9.2 Magnesium 1.4 L Total Bilirubin 1.0 AST 27 ALT 18 Alkaline Phosphatase 57 Troponin I 12 NT-Pro-B Natriuret Pep 713 H Total Protein 7.0 Albumin 3.2 L Urine Color Urine Clarity Urine pH Ur Specific [place] Urine Protein Urine Ketones Urine Blood Urine Nitrite Urine Bilirubin Urine Urobilinogen Ur Leukocyte Esterase Urine RBC Urine WBC Ur Epithelial Cells Urine Crystals Urine Bacteria Urine Casts Urine Mucus Urine Other Ur Culture Indicated? Urine Glucose COVID-19 Source Nasopharynx SARS-CoV-2 (PCR) Negative Influenza Type A (PCR) Negative Influenza Type B (PCR) Negative RSV (PCR) Negative 10/23/24 11:24 WBC RBC Hgb Hct MCV MCH MCHC RDW Plt Count MPV Immature Gran % Neutrophils % Band Neutrophils % Lymphocytes % Atypical Lymphs % Monocytes % Eosinophils % Basophils % Metamyelocytes % Myelocytes % Promyelocytes % Other Cells % Nucleated RBC % Absolute Neutrophils Absolute Lymphocytes Absolute Monocytes Absolute Eosinophils Absolute Basophils RBC Morphology Polychromasia Hypochromasia Poikilocytosis Basophilic Stippling Anisocytosis Microcytosis Macrocytosis Spherocytes Tear Drop Cells Ovalocytes Stomatocytes [place] Bodies Lm Cells/Echinocytes Acanthocytes (Spur) Schistocytes VBG pH VBG pCO2 VBG pO2 VBG HCO3 VBG Total CO2 VBG O2 Saturation VBG Base Excess VBG Lactate Sodium Potassium Chloride Carbon Dioxide Anion Gap BUN Creatinine Est GFR (CKD-EPI 2020) Glucose Calcium Magnesium Total Bilirubin AST ALT Alkaline Phosphatase Troponin I NT-Pro-B Natriuret Pep Total Protein Albumin Urine Color Yellow Urine Clarity Clear Urine pH 5.5 Ur Specific [place] 1.020 Urine Protein >=300 H Urine Ketones Trace H Urine Blood Large H Urine Nitrite Negative Urine Bilirubin Small H Urine Urobilinogen 0.2 Ur Leukocyte Esterase Negative Urine RBC 20-50 H Urine WBC Negative Ur Epithelial Cells Negative Urine Crystals Negative Urine Bacteria Rare Urine Casts Negative Urine Mucus Trace Urine Other Negative Ur Culture Indicated? No Urine Glucose Negative COVID-19 Source SARS-CoV-2 (PCR) Influenza Type A (PCR) Influenza Type B (PCR) RSV (PCR) Last Vital Signs Temp 38.4 C H 10/23/24 12:41 Pulse 106 H 10/23/24 12:41 Resp 29 H 10/23/24 12:41 BP 119/41 L 10/23/24 12:41 Pulse Ox 91 L 10/23/24 12:41 Time Spent Time spent with Patient: >75 minutes Time was spent: preparing to see the patient(eg.review tests), obtaining and/or reviewing separately otained hiistory, ordering medications,tests, procedures, referring, communicating with other health long term care administrator, indepentently interpreting results, counseling the patient and care coordination
[2024-10-23 15:29] LABS: BE (Venous) 2 mmol/L (-2-3); HCO3 (Venous) 27 mmol/L (23-28); O2 Sat (Venous) 72 %; TCO2 (Venous) 25 mmol/L (24-29); pCO2 (Venous) 47 mmHg (41-51); pH (Venous) 7.37 (7.31-7.41); pO2 (Venous) 37 mmHg
[2024-10-23] MEDS: POTASSIUM CHLORIDE 20 MEQ/100 ML BAG 50 MEQ IV_INF (16:35)
[2024-10-23] MEDS: MAGNESIUM SULFATE 4 GM/100 ML BAG IV_INF (16:55)
[2024-10-23] MEDS: Enoxaparin 40 MG/0.4 ML SYR SC (17:26)
[2024-10-23] MEDS: VANCOMYCIN/WATER (PEG) 1.5 GM/300 ML BAG IVPB (17:48)
[2024-10-23] MEDS: Hydrocortisone SOD SUC. 100 MG VIAL IVP (19:04)
[2024-10-23] MEDS: Acetaminophen 325 MG TAB 650 MG PO (20:00)
[2024-10-23] MEDS: Lidocaine 5% Patch 1 PATCH TP (20:30)
[2024-10-23] MEDS: Haloperidol 5 MG/ML VIAL 2 MG IM/IV (21:15)
[2024-10-23] MEDS: Norepinephrine in D5W 8 MG/250 ML BAG 15 MG IV (23:59)
[2024-10-23] MEDS: Normal Saline Flush 10 ML SYR (23:59)
[2024-10-24] VITALS (102 sets, daily range): BP systolic 81–155; BP diastolic 38–137; PULSE 69–146; RESP 3–35; TEMP 31–38; O2SAT 77–98
[2024-10-24] MEDS: Haloperidol 5 MG/ML VIAL 2 MG IM/IV (00:47)
[2024-10-24] MEDS: Normal Saline Flush 10 ML SYR (00:50)
[2024-10-24] MEDS: Hydrocortisone SOD SUC. 100 MG VIAL 50 MG IVP ×3 (02:22→18:39)
[2024-10-24 03:14] LABS: Abs Immature Grans 0.99 10^3/uL (0.0-0.06); Anion Gap 11.3 mmol/L (3-11); BUN 24 mg/dL (7-18); CO2 27.7 mmol/L (21.0-32.0); CREATININE 1.2 mg/dL (0.70-1.30); Calcium 9.6 mg/dL (8.5-10.1); Chloride 107 mmol/L (98-107); Estimated GFR 59.26 (mL/min/1.73m2); Glucose 121 mg/dL (74-106); HCT 45.3 % (40.0-50.0); MCH 30.9 pg (27.0-33.0); MCHC 33.1 % (32.0-36.0); MCV 93 fL (80-95); Magnesium 2.4 mg/dL (1.8-2.4); Potassium 3.9 mmol/L (3.5-5.1); RBC 4.86 10^6/uL (4.36-5.78); RDW 13.4 % (11.8-14.1); Sodium 146 mmol/L (136-145)
[2024-10-24 03:29] LABS: Vancomycin, Random 10.5 ug/mL
[2024-10-24 03:34] LABS: WBC 30.77 10^3/uL (4.4-10.8)
[2024-10-24 03:35] LABS: Absolute Lymphocyte Count 1.85 10^3/uL (1.2-3.4)
[2024-10-24 03:37] LABS: Absolute Eosinophil Count 0.31 10^3/uL (0.0-0.7); Absolute Monocyte Count 1.85 10^3/uL (0.1-0.8); Absolute Neutrophil Count 26.46 10^3/uL (1.2-6.7); Bands % 1 %; Diff Comment Manual Differential; RBC Morphology Normal
[2024-10-24 03:44] LABS: Metamyelocytes % 1
[2024-10-24] MEDS: Budesonide/Formoterol 160/4.5 6 GM 60 PUFF INH IH ×2 (08:12→20:00)
[2024-10-24] MEDS: Tiotropium Bromide-Respimat 10 PUFF INH 2 PUFF IH (08:12)
[2024-10-24] MEDS: Albuterol/Ipratropium 3 ML UPD VIAL UPD ×3 (08:13→19:58)
--- NOTE | 2024-10-24 08:46 | PDOC.CMIN ---
Date of service: 10/24/24 Time of Service: 08:47 Care Management Initial Assmt Initial Assessment Reason for Hospitalization: sepsis, pneumonia Functional Status/Living Situation Patient Presentation: Víctor presented to the ED yesterday with c/o low back pain. EMS found Víctor to have a RA sat at 87%. In the ED he was noted to have altered mental status, he was febrile and required O2 via nc. Of note, Víctor had just seen [facility] pulmonology on 10/21 and he was noted to be A&O and in no distress. Víctor was sitting up in the bedside chair, having some lunch, when CM met with him today. His , Mikhail, was visiting, as was his daughter and 2 other friends. Víctor was pleasant, but not much of a talker He was noted to still be on the nor-epi drip, and was also wearing 4L nc O2. Víctor stated that he is feeling eh, but maybe a little better than when he first came in. His stated that Víctor was very weak, and she was scared for his well- being and called the ambulance. They reported that his symptoms seemed to come on really fast. Derek are independent in the community. They have 3 kids that live locally and are extremely supportive. Neither feels the need for any additional supports at this time. Town of Residence: [place] Resides with: Spouse (Cora- prefers to be called Mikhail) Significant Other/Family: Local (3 children, 4 grandkids and 3 great grand kids who are all within a few minutes and very supportive) Natural Supports: family Employment Status: Retired (was for many years) Instrumental Activities of Daily Living (ADLs): Independent Medications Medication Management: No Issues/Barriers identified Advance Directives Advance Directives: Do you have an Advance Directive: Y 08/20/19 11:20 AD On File at [facility]: Y 08/20/19 11:20 Date Asked 05/26/19 08/20/19 11:20 AD Date Reviewed 10/23/24 10/23/24 08:52 COLST On File at [facility] COLST Date Scanned Code Status Resuscitation Status DNR Insurance Coverage/Financial Issues Insurance: Medicare Part A & B 4 Life MCR Supplement Care Team Visit Care Team Role Provider Type Vivienne Adjovu, [facility] Primary Care Provider NURSE PRACTITIONER Heriberto Hdz MD Emergency Provider [facility] STAFF PHYSICIAN Josiah Atkinson Admit Provider [facility] STAFF PHYSICIAN Attending Provider Other: pulmonary at [facility] Discharge Potential Discharge Needs: PCP F/U Appt Anticipated Barriers to Discharge: None Identified Patient/Family Education Needs: Review discharge instructions, discuss Ask Me Three Transportation: Private vehicle Plan: Anticipate that Víctor will discharge home once medically stable. He will require no new services. Víctor will f/u with his PCP and continue per his plan of care. He will transport home in a private vehicle. CM will continue to follow and to update the plan as needed. Social Determinants of Health Screening Social Determinants of health last assessed in clinic: 10/24/24 Will the Patient Participate in the Screening?: Yes Do you worry about having a steady place to live?: no Problems where you live: no known problems In the past 12 months, have you had to go without electric, gas, oil or water in your home?: no 1. Within the past 12 months, we worried whether our food would run out before we got money to buy more.: Never true 2. Within the past 12 months, the food we bought just didn't last and we didn't have money to get more.: Never true Has lack of transportation kept you from medical appointments or from doing things needed for daily living?: yes Has anyone in your life made you feel unsafe or unsupported?: no How hard is it for you to pay for the very basics like food, housing, medical care, and heating? Would you say it is:: Not hard at all Do you want help finding or keeping work or a job?: I do not need or want help If for any reason you need help with day-to-day activities such as bathing, preparing meals, shopping, managing finances, etc., do you get the help you need?: I don?t need any help How often do you feel lonely or isolated from those around you?: Never Do you speak a language other than Martiniquais at home?: No Does the patient want assistance with any of the above?: No Health Related Social Needs Health related social needs: transportation insecurity (Z59.82) Health related social needs details: none PFSH All Active Problems (Updated 10/23/24 @ 14:06 by Josiah Atkinson) Hypokalemia (Acute) Hypomagnesemia (Acute) DVT prophylaxis (Acute) Acute hypoxic respiratory failure (Acute) COPD with exacerbation (Acute) Hematuria (Acute) Septic shock (Acute) Hypoxia (Acute) Acute alteration in mental status (Acute) Back pain (Acute) Left lower lobe pneumonia (Acute) Seborrheic keratoses (Acute) 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 Family History Mother Pulmonary fibrosis Intestinal cancer Father Diabetes Heart disease Hypertension Sister Brain cancer Brother No problems noted. Son No problems noted. Daughter No problems noted. Daughter No problems noted. Social History (Updated 10/23/24 @ 13:48 by Josiah Atkinson) Smoking/Tobacco Use Status: Former Tobacco Use tobacco type: cigarettes Quit Date: 05/21/80 Tobacco: How many years used: 20 Second Hand Exposure: No Smoking risk assessment performed?: Yes Alcohol Intake: current Alcohol Intake frequency: a few times a month Alcohol type: beer Details: none in over a month Drug use: Never Substance use type: does not use Caregiver/Support person: No Household members: spouse Housing: house Communication Needs: None Do you need help understanding health information?: Often Pets and animals: No Sexually active: No Do you think of yourself as: straight/heterosexual Current gender identity: male What is your relationship status?: How often do you talk on the phone with friends or family?: never How often do you get together with friends or relatives?: once per week How often do you attend shinto or rastafarian services?: decline to answer Do you belong to any clubs or organized social groups?: no Panel score (0-1 are the most socially isolated patients): 1 What type of physical activity do you participate in: none Duration: 15-30 minutes/day Frequency: does not exercise Aruna/Denominational: Sabianism Special aruna needs: No Seatbelt use: always Helmet use: Yes Helmet use: sometimes Drive intox or ride w/intox certified driver examiner: No Do you feel safe at home: Yes Do you feel safe in your relationship?: Yes Additional Social history: Lives with Sergio, daughter also close. Retired , construction
[2024-10-24] MEDS: VANCOMYCIN/WATER (PEG) 1.5 GM/300 ML BAG IVPB (09:36)
[2024-10-24] MEDS: Rosuvastatin 10 MG TAB PO (11:12)
[2024-10-24] MEDS: Tamsulosin 0.4 MG CAPCR PO (11:12)
--- NOTE | 2024-10-24 12:44 | PHA.REVIEW2 ---
Pharmacy Admission Review Admission Clinical Review Admission Pharmacy Review: (Updated 10/23/24 @ 14:06 by Josiah Atkinson) Hypokalemia (Acute) Hypomagnesemia (Acute) DVT prophylaxis (Acute) Acute hypoxic respiratory failure (Acute) COPD with exacerbation (Acute) Septic shock (Acute) Left lower lobe pneumonia (Acute) Penicillins Allergy (Unknown, Verified 09/04/24 11:03) unknown venom-honey bee Allergy (Unknown, Verified 09/04/24 11:03) unknown hydrochlorothiazide Adverse Reaction (Intermediate, Verified 09/04/24 11:03) Cough doxycycline Adverse Reaction (Verified 09/04/24 11:03) Chest tightness DOG DANDER Allergy (Unknown, Uncoded 09/04/24 11:03) unknown DUST Allergy (Unknown, Uncoded 09/04/24 11:03) unknown Resuscitation Status DNR Height 5 ft 8 in Weight 92.7 kg Pharmacy Admission Review Renal Dosing Renal Dosing: BUN 24 mg/dL (7-18) H 10/24/24 02:55 Creatinine 1.2 mg/dL (0.70-1.30) 10/24/24 02:55 Medications needing adjustments: Reviewed List of meds needing interventions: Pt's Scr increased to 1.2 from 0.8. CrCl is around 50ml/min. Levofloxacin is borderline to be adjusted-if Scr increases more may need to adjust frequency. Vanco is being monitored via levels (see below). Anticoagulation Anticoagulation: Hgb 15.0 g/dL (13.5-17.5) D 10/24/24 02:55 Hct 45.3 % (40.0-50.0) 10/24/24 02:55 Plt Count 10^3/uL (130-400) 10/24/24 02:55 Creatinine 1.2 mg/dL (0.70-1.30) 10/24/24 02:55 DVT Prophylaxis: Reviewed Medications: Enoxaparin Opiate Usage Evaluate Pain Scale/Pains Meds: N/A Relevant Labs Relevant Labs: Sodium 146 mmol/L (136-145) H 10/24/24 02:55 Potassium 3.9 mmol/L (3.5-5.1) 10/24/24 02:55 Chloride 107 mmol/L (98-107) 10/24/24 02:55 Magnesium 2.4 mg/dL (1.8-2.4) 10/24/24 02:55 Electrolytes, C-Reactive P, ESR: Reviewed DM Control DM Control: am [id number]. DM Control: Reviewed Insulin Dosing, Diabetic Medication: Not on any meds for DM at home but documented history. On sliding scale lispro. Cardiac Review Cardiac Review: Troponin I 12 ng/L (<or=76) 10/23/24 09:16 NT-Pro-B Natriuret Pep 713 pg/mL (<300) H 10/23/24 11:03 BP, HR, EF%: Reviewed List meds needing interventions: currently on levophed for septic shock. QTc Review QTc: Reviewed List meds needing interventions: [id number]. currently on prn haldol. no adjustment needed. IV to PO Switch IV Medications: Reviewed (taking po meds. can consider switching levofloxacin to po when pt is off pressors and transferred to [facility] ) Home Meds Home Med List reviewed: Reviewed Current Meds Current Medication Order Review: Reviewed Pharmacy Antibiotic Review Relevant Labs: Vancomycin 2500mg IV loading dose ordered on 10/23, however only 1500mg given 1748. Random level on 10/24 @0255=10.5 Started 1500mg IV daily starting @0830 on 10/24. Ordered f/u level on 10/25 (even though not at steady state because Scr is slightly unstable). Levofloxacin 750mg IV q24h ordered. Pt with pcn allergy. Provider did not want to try a cephalosporin or change to another abx because pt was improving on current therapy. Follow-up on blood cultures ordered. Pharmacy Antibiotic Activity: 48 hour review and C/S review SOAP Plan: Monitor Scr and vanco levels.
[2024-10-24] MEDS: Enoxaparin 40 MG/0.4 ML SYR SC (14:23)
[2024-10-24] MEDS: Lidocaine 5% Patch 1 PATCH TP (14:24)
[2024-10-24] MEDS: levoFLOXacin 750 MG/150 ML BAG 100 MG IVPB (14:57)
[2024-10-24] MEDS: Normal Saline Flush 10 ML SYR IVP ×2 (15:06→17:24)
--- NOTE | 2024-10-24 16:00 | W.PM.PROGNOT ---
Date of Service Date of service: 10/24/24 Time of Service: 16:00 Assessment and Plan Assessment and plan (1) Septic shock: Status: Acute Assessment and plan: Sepsis a/w pneumonia, hypotension despite fluid resuscitation. Still on norepinephrine. Taking po now, start gentle fluids as oral intake may be less than normal and labs c/w hemoconcentration. Blood cultures pending On levofloxacin (given report of severe PCN allergy) and vancomycin. Considered cefepime for better coverage of sepsis, but he seems to be responding to this so continue. (2) Left lower lobe pneumonia: Status: Acute Assessment and plan: Significant PCN allergy so started on levofloxacin, added vancomycin given sepsis. see above re: abx (3) COPD with exacerbation: Status: Acute Assessment and plan: With hypoxia, possible COPD exacerbation component, and hypotension I ordered hydrocortisone 100mg now and continue IV. Transition to oral prednisone when improving. Continue bronchidilators including nebs if they are helping. Holding roflumilast with acute illness No change today (4) Acute hypoxic respiratory failure: Status: Acute Assessment and plan: As above. No CO2 retention on VBGs. Increase O2 need overnight with sedation but now 3-4 liters per NC (5) Obstructive sleep apnea on CPAP: Status: Chronic Assessment and plan: home CPAP, didn't have last night but has machine now, though doesn't like to use it a lot at home. (6) Type 2 diabetes mellitus: Status: Chronic Assessment and plan: Has been well controlled without meds as outpatient, but will be on steroids. check sugars q6 and use ISS for now. (7) Essential hypertension: Status: Chronic Assessment and plan: Holding BP meds as hypotensive (8) Hypomagnesemia: Status: Acute Assessment and plan: normalized (9) Hypokalemia: Status: Acute Assessment and plan: normalized after supplementation (10) Acute kidney injury: Status: Acute Assessment and plan: Cr up from 0.8 to 1.2, likely reflecting severity of acute illness on arrival. Treating hypotension as above, gentle additional fluids. He is not retaining after berry removed for agitation per bladder scan. Follow. (11) Sepsis with metabolic encephalopathy: Status: Acute Assessment and plan: Try to manage behaviorally, got haloperidol overnight 10/23 (12) DVT prophylaxis: Status: Acute Assessment and plan: enoxaparin Subjective Subjective Patient reports: no new complaints and fever; denies nausea or vomiting Interval history since last seen: 24 hr: On norepinephrine overnight Agitation in evening, got haloperidol x 2mg x 2, required HFNC after being sedated Family thinks he looks a lot better. He feels okay. Had some back pain earlier but got lidocaine patch. Feels better now. He is eating some but still not much appetite, but he is thirsty Still same cough. He is incontinent of urine but seems to be wetting the bed a lot per RNs (berry removed due to agitation/confusion) Exam Narrative Exam Narrative: GEN: Sitting up in bed, drinking fluids, oriented to self, place, and time/year but cannot give full history. Pleasant and cooperative with exam, NAD LUNGS: Rales in bases juan j, left more than right. Slight exp wheezes in bases. Mild tachypnea in 20s with oxymask with 4L CV: RRR with no murmurs, gallops, or rubs, though distant ABD: active bowel sounds, soft, nontender and nondistended. No masses. EXT: no cyanosis, clubbing, or edema. Extremities warm. Objective Last Vital Signs Temp 38 C H 10/24/24 15:30 Pulse 109 H 10/24/24 15:30 Resp 23 10/24/24 15:30 BP 119/60 10/24/24 15:30 Pulse Ox 90 L 10/24/24 15:30 Laboratory Results - last 24 hr 10/24/24 02:55 WBC 30.77 H* RBC 4.86 Hgb 15.0 D Hct 45.3 MCV 93 MCH 30.9 MCHC 33.1 RDW 13.4 Plt Count MPV Immature Gran % 0.0 Neutrophils % 85.0 Band Neutrophils % 1 Lymphocytes % 6.0 Monocytes % 6.0 Eosinophils % 1.0 Basophils % 0.0 Metamyelocytes % 1 Nucleated RBC % 0.0 Absolute Neutrophils 26.46 H Absolute Lymphocytes 1.85 Absolute Monocytes 1.85 H Absolute Eosinophils 0.31 Absolute Basophils 0.00 RBC Morphology Normal Sodium 146 H Potassium 3.9 Chloride 107 Carbon Dioxide 27.7 Anion Gap 11.3 H BUN 24 H Creatinine 1.2 Est GFR (CKD-EPI 2020) 59.26 Glucose 121 H Calcium 9.6 Magnesium 2.4 Random Vancomycin 10.5 Time Spent with Patient Time Spent with Patient: >50 minutes Time was spent: preparing to see the patient(eg.review tests), obtaining and/or reviewing separately otained hiistory, ordering medications,tests, procedures, referring, communicating with other health acute care certified nursing assistant, indepentently interpreting results, counseling the patient and care coordination
[2024-10-24] MEDS: Norepinephrine in D5W 8 MG/250 ML BAG 16.875 MG IV (16:03)
[2024-10-24] MEDS: DEXTROSE 5%-LACTATED RINGERS 1,000 ML 50 ML IV (17:30)
--- NOTE | 2024-10-24 18:44 | RESPIRATORY ---
Pt's own ResMed [id number] Auto CPAP Min Pressure: 6 Max Pressure: 16 No O2 bleed in at baseline. RT/Nursing may need to bleed in O2 during this admission. Full Face Mask Size S-M. DME: [facility].
[2024-10-24] MEDS: Acetaminophen 325 MG TAB 650 MG PO (19:45)
[2024-10-24] MEDS: LORazepam 20 MG/10 ML VIAL IVP (23:11)
[2024-10-25] VITALS (33 sets, daily range): BP systolic 99–140; BP diastolic 43–102; PULSE 88–108; RESP 9–25; TEMP 36.6–37.2; O2SAT 90–97
[2024-10-25] MEDS: LORazepam 20 MG/10 ML VIAL IVP (00:20)
[2024-10-25] MEDS: Normal Saline Flush 10 ML SYR IVP ×3 (01:39→20:40)
[2024-10-25] MEDS: Hydrocortisone SOD SUC. 100 MG VIAL 50 MG IVP (01:39)
[2024-10-25] MEDS: Albuterol/Ipratropium 3 ML UPD VIAL UPD ×4 (01:58→20:00)
[2024-10-25] MEDS: OLANZapine 10 MG VIAL 5 MG IM (02:29)
[2024-10-25] MEDS: Water,Injection,Sterile 10 ML VIAL (02:30)
[2024-10-25 05:09] LABS: Abs Immature Grans 2.87 10^3/uL (0.0-0.06); HCT 40.1 % (40.0-50.0); HGB 13.1 g/dL (13.5-17.5); MCH 30.2 pg (27.0-33.0); MCHC 32.7 % (32.0-36.0); MCV 92 fL (80-95); RBC 4.34 10^6/uL (4.36-5.78); RDW 13.4 % (11.8-14.1); RDW-SD 46.3 fL
[2024-10-25 05:38] LABS: Magnesium 2.4 mg/dL (1.8-2.4)
[2024-10-25 05:42] LABS: Anion Gap 7.7 mmol/L (3-11); BUN 28 mg/dL (7-18); CO2 30.3 mmol/L (21.0-32.0); Calcium 9.4 mg/dL (8.5-10.1); Chloride 107 mmol/L (98-107); Estimated GFR 73.76 (mL/min/1.73m2); Glucose 124 mg/dL (74-106); Sodium 145 mmol/L (136-145)
[2024-10-25 05:50] LABS: Absolute Lymphocyte Count 0.58 10^3/uL (1.2-3.4); Absolute Monocyte Count 0.86 10^3/uL (0.1-0.8); Bands % 2 %; Diff Comment Manual Differential; Metamyelocytes % 2; Myelocytes % 1; RBC Morphology Normal
[2024-10-25] MEDS: Budesonide/Formoterol 160/4.5 6 GM 60 PUFF INH IH ×2 (07:47→20:03)
[2024-10-25] MEDS: Tiotropium Bromide-Respimat 10 PUFF INH 2 PUFF IH (07:47)
[2024-10-25] MEDS: predniSONE 20 MG TAB 40 MG PO (07:52)
[2024-10-25] MEDS: Tamsulosin 0.4 MG CAPCR PO (07:53)
[2024-10-25] MEDS: Potassium Chloride 20 MEQ TABCR 40 MEQ PO (07:53)
[2024-10-25] MEDS: Rosuvastatin 10 MG TAB PO (07:53)
--- NOTE | 2024-10-25 08:13 | PGE_ITS ---
Date of Service Date of service: 10/25/24 Time of Service: 08:13 Assessment and Plan Assessment and plan (1) Septic shock: Status: Acute Assessment and plan: Sepsis a/w pneumonia, hypotension despite fluid resuscitation in ED. On norepinephrine 10/23-10/25 off at 2am, stable since. Taking po now, continue gentle fluids as oral intake may be less than normal Blood cultures NGTD. On levofloxacin (given report of severe PCN allergy) and vancomycin. Considered cefepime for better coverage of sepsis, but he still seems to be responding to this so continue. MRSA nares swab today, stop vancomycin as negative To floor status later today if remains stable. Try to mobilize, get PT (2) Left lower lobe pneumonia: Status: Acute Assessment and plan: Significant PCN allergy so started on levofloxacin, added vancomycin given sepsis. see above re: abx (3) COPD with exacerbation: Status: Acute Assessment and plan: With hypoxia, possible COPD exacerbation component, and hypotension I ordered hydrocortisone 100mg now and continue IV. Transition to oral prednisone today. Continue bronchidilators including nebs if they are helping. Holding roflumilast with acute illness (4) Acute hypoxic respiratory failure: Status: Acute Assessment and plan: As above. No CO2 retention on VBGs. O2 stable overnight, decreasing need slowly. Continue to try to titrate down Declined using home CPAP (5) Type 2 diabetes mellitus: Status: Chronic Assessment and plan: Has been well controlled without meds as outpatient, on steroids here but still not bad, check sugars ACHS and use ISS for now. (6) Essential hypertension: Status: Chronic Assessment and plan: Holding BP meds as hypotensive (7) Hypomagnesemia: Status: Acute Assessment and plan: normalized (8) Hypokalemia: Status: Acute Assessment and plan: normalized after supplementation (9) Acute kidney injury: Status: Acute Assessment and plan: Cr up from 0.8 to 1.2, likely reflecting severity of acute illness on arrival. He is not retaining after berry removed for agitation per bladder scan. Now imrpoving as expected. (10) Sepsis with metabolic encephalopathy: Status: Acute Assessment and plan: Try to manage behaviorally, got haloperidol overnight 10/23 and benzo/olanzapine 10/24 Try to de-escalate interventions now that improving Will give a dose of olanzapine orally in evening (11) DVT prophylaxis: Status: Acute Assessment and plan: enoxaparin Subjective Subjective Patient reports: tolerating liquids well, tolerating a regular diet and voiding w/o difficulty (incontinent); denies diarrhea, vomiting or fever Interval history since last seen: Events: Off levofloxacin at 2am Confused and agitated again overnight, worse with lorazepam, got olanzapine 5mg x 2. Didn't sleep much. He feels okay this morning, doesn't remember last night well. He is tired, hungry. Feels like breathing improving. Exam Narrative Exam Narrative: GEN: Sitting up in chair, fatigued looking. Oriented to self and year but not place/time today. Still pleasant and cooperative with exam, NAD LUNGS: Very slight rales in base right. No wheezes. O2 via NC 3L CV: RRR with no murmurs, gallops, or rubs, though distant ABD: active bowel sounds, soft, nontender and nondistended. No masses. EXT: no cyanosis, clubbing, or edema. Extremities warm. Objective Last Vital Signs Temp 37.3 C 10/24/24 22:00 Pulse 98 H 10/25/24 07:01 Resp 18 10/25/24 07:01 BP 111/63 10/25/24 07:01 Pulse Ox 91 L 10/25/24 07:01 Laboratory Results - last 24 hr 10/25/24 10/25/24 04:38 05:35 WBC 28.80 H* RBC 4.34 L Hgb 13.1 L Hct 40.1 MCV 92 MCH 30.2 MCHC 32.7 RDW 13.4 Plt Count MPV Immature Gran % 0.0 Neutrophils % 90.0 Band Neutrophils % 2 Lymphocytes % 2.0 Monocytes % 3.0 Eosinophils % 0.0 Basophils % 0.0 Metamyelocytes % 2 Myelocytes % 1 Nucleated RBC % 0.0 Absolute Neutrophils 26.50 H Absolute Lymphocytes 0.58 L Absolute Monocytes 0.86 H Absolute Eosinophils 0.00 Absolute Basophils 0.00 RBC Morphology Normal Sodium 145 Potassium 3.0 L Chloride 107 Carbon Dioxide 30.3 Anion Gap 7.7 BUN 28 H Creatinine 1.0 Est GFR (CKD-EPI 2020) 73.76 Glucose 124 H Calcium 9.4 Magnesium 2.4 Vancomycin Trough Cancelled Time Spent with Patient Time Spent with Patient: >50 minutes Time was spent: preparing to see the patient(eg.review tests), obtaining and/or reviewing separately otained hiistory, ordering medications,tests, procedures, referring, communicating with other health hospice home care coordinator, indepentently interpreting results, counseling the patient and care coordination
[2024-10-25 08:31] LABS: Vancomycin, Random 9.5 ug/mL
[2024-10-25 09:26] LABS: MRSA PCR Negative (Negative)
[2024-10-25] MEDS: levoFLOXacin 750 MG/150 ML BAG 100 MG IVPB (10:54)
[2024-10-25] MEDS: Acetaminophen 325 MG TAB 650 MG PO ×2 (11:34→20:39)
[2024-10-25] MEDS: Insulin Aspart 300 UNITS/3 ML PEN SC ×2 (11:48→17:17)
[2024-10-25] MEDS: Enoxaparin 40 MG/0.4 ML SYR SC (13:26)
[2024-10-25] MEDS: Potassium Chloride Liquid 20 MEQ PKT 40 MEQ PO ×2 (13:34→20:38)
--- NOTE | 2024-10-25 16:18 | NUR.NOTE ---
Access chart to reconcile EKG's in [facility] with EKG orders in [facility]. Order in active status, needs to be read. Nursing Note:
--- NOTE | 2024-10-25 17:45 | W.PC.ACHO ---
Registration Status: Primary Language: Preferred Language: ED Information & Data Chief Complaint Nk/Back Pain 10/23/24 09:36 Chief Complaint Nk/Back Pain 10/23/24 09:23 Triage Note Spouse called EMS following 10/23/24 08:51 pt complaints of bilateral lower back, flank pain. Sats on EMS arrival 87% w/ crackles noted in bases. O2 admin en route 6L w/ SPo2 increasing to 93%. Medical / Surgical History History of tobacco use (Last Reviewed 10/23/24 @ 13:47 by Josiah Atkinson) S/P colonoscopy S/P cataract surgery Most Recent Vital Signs Temperature 36.6 C 10/25/24 16:28 Temperature Source Temporal Artery Scan 10/25/24 16:28 Pulse 95 H 10/25/24 16:28 Pulse 101 H 10/25/24 07:02 Respiratory Rate 17 10/25/24 16:28 Respiratory Effort Short of Breath, Labored, Incrsd Work of Breathing 10/23/24 20:15 Respiratory Depth Normal 10/23/24 14:50 Respiratory Pattern Tachypnea 10/23/24 14:50 Blood Pressure 125/61 10/25/24 16:28 Blood Pressure Mean 82 10/25/24 16:28 Blood Pressure Position Supine 10/23/24 14:50 Pulse Oximetry 93 10/25/24 16:28 Respiratory End-tidal CO2 23 10/23/24 11:01 Oxygen Delivery Method Room Air 10/25/24 16:28 Oxygen Flow Rate 0 10/25/24 16:28 Fraction of Inspired Oxygen (FIO2) 55 10/24/24 07:40 Pain Level 0 10/25/24 17:10 Comment levo 7 10/23/24 13:34 Allergies Penicillins Allergy (Unknown, Verified 09/04/24 11:03) unknown venom-honey bee Allergy (Unknown, Verified 09/04/24 11:03) unknown hydrochlorothiazide Adverse Reaction (Intermediate, Verified 09/04/24 11:03) Cough doxycycline Adverse Reaction (Verified 09/04/24 11:03) Chest tightness DOG DANDER Allergy (Unknown, Uncoded 09/04/24 11:03) unknown DUST Allergy (Unknown, Uncoded 09/04/24 11:03) unknown Active Medications Generic Name Dose Route Start Last Admin Trade Name Freq PRN Reason Stop Dose Admin Acetaminophen 650 mg 10/23/24 18:23 10/25/24 11:34 Acetaminophen 325 Mg Tab PO 650 mg Q4H PRN PRN Administration Albuterol/Ipratropium 3 ml 10/23/24 14:00 10/25/24 14:56 Albuterol/Ipratropium 3 Ml Upd Vial UPD 3 ml Q6H LELAND Administration Budesonide/Formoterol Fumarate 2 puff 10/23/24 20:00 10/25/24 07:47 Budesonide/Formoterol 160/4.5 6 Gm 60 Puff Inh IH 2 inh BID LELAND Administration Enoxaparin Sodium 40 mg 10/23/24 14:00 10/25/24 13:26 Enoxaparin 40 Mg/0.4 Ml Syr SC 40 mg Q24H LELAND Administration Levofloxacin 750 mg in 150 mls @ 100 mls/hr 10/24/24 11:00 10/25/24 15:23 Levaquin Premixed Bag IVPB Infused Q24H LELAND Infusion IV Miscellaneous Supplies 1 each 10/25/24 08:30 10/25/24 07:53 Iv Access IV 1 each DAILY LELAND Administration Insulin Aspart 0 units 10/23/24 17:00 10/25/24 17:17 Insulin Aspart 300 Units/3 Ml Pen SC 3 units 0800,1200,1700 LELAND Administration Protocol Lidocaine 1 patch 10/23/24 13:13 10/24/24 14:24 Lidocaine 5% Patch TP 1 patch DAILY PRN PRN Administration back pain Potassium Chloride 40 meq 10/25/24 14:00 10/25/24 13:34 Potassium Chloride Liquid 20 Meq Pkt PO 10/25/24 20:01 40 meq TID LELAND Administration Prednisone 40 mg 10/25/24 08:30 10/25/24 07:52 Prednisone 20 Mg Tab PO 40 mg DAILY LELAND Administration Rosuvastatin Calcium 10 mg 10/24/24 08:30 10/25/24 07:53 Rosuvastatin 10 Mg Tab PO 10 mg DAILY LELAND Administration Sodium Chloride 0 ml 10/24/24 02:06 10/25/24 02:28 Normal Saline Flush 10 Ml Syr IVP 40 ml PRN PRN Administration Tamsulosin HCl 0.4 mg 10/24/24 08:30 10/25/24 07:53 Tamsulosin 0.4 Mg Capcr PO 0.4 mg DAILY LELAND Administration Tiotropium [place] 2 puff 10/24/24 08:30 10/25/24 07:47 Tiotropium [place]-Respimat 10 Puff Inh IH 2 inh DAILY LELAND Administration IV IV Catheter Type [Right Wrist] Saline Lock IV Catheter Type [Left Forearm Saline Lock ] IV Catheter Type [Right Saline Lock Antecubital] IV Catheter Gauge [Right Wrist 20 ] IV Catheter Gauge [Left 18 Forearm] IV Catheter Gauge [Right 18 Antecubital] Diagnostics 10/25/24 10/25/24 10/25/24 Range/Units 08:05 08:00 05:35 WBC (4.4-10.8) 10^3/uL RBC (4.36-5.78) 10^6/uL Hgb (13.5-17.5) g/dL Hct (40.0-50.0) % MCV (80-95) fL MCH (27.0-33.0) pg MCHC (32.0-36.0) % RDW (11.8-14.1) % Plt Count (130-400) 10^3/uL MPV (8.0-11.0) fL Immature Gran % % Neutrophils % % Band Neutrophils % % Lymphocytes % % Monocytes % % Eosinophils % % Basophils % % Metamyelocytes % Myelocytes % Nucleated RBC % (0.0-0.3) % Absolute Neutrophils (1.2-6.7) 10^3/uL Absolute Lymphocytes (1.2-3.4) 10^3/uL Absolute Monocytes (0.1-0.8) 10^3/uL Absolute Eosinophils (0.0-0.7) 10^3/uL Absolute Basophils (0.0-0.2) 10^3/uL RBC Morphology Sodium (136-145) mmol/L Potassium (3.5-5.1) mmol/L Chloride (98-107) mmol/L Carbon Dioxide (21.0-32.0) mmol/L Anion Gap (3-11) mmol/L BUN (7-18) mg/dL Creatinine (0.70-1.30) mg/dL Est GFR (CKD-EPI 2020) (mL/min/1.73m2) Glucose (74-106) mg/dL Calcium (8.5-10.1) mg/dL Magnesium (1.8-2.4) mg/dL Vancomycin Trough Cancelled Random Vancomycin 9.5 ug/mL MRSA (TEM-PCR) Negative (Negative) 10/25/24 Range/Units 04:38 WBC 28.80 H* (4.4-10.8) 10^3/uL RBC 4.34 L (4.36-5.78) 10^6/uL Hgb 13.1 L (13.5-17.5) g/dL Hct 40.1 (40.0-50.0) % MCV 92 (80-95) fL MCH 30.2 (27.0-33.0) pg MCHC 32.7 (32.0-36.0) % RDW 13.4 (11.8-14.1) % Plt Count (130-400) 10^3/uL MPV (8.0-11.0) fL Immature Gran % 0.0 % Neutrophils % 90.0 % Band Neutrophils % 2 % Lymphocytes % 2.0 % Monocytes % 3.0 % Eosinophils % 0.0 % Basophils % 0.0 % Metamyelocytes % 2 Myelocytes % 1 Nucleated RBC % 0.0 (0.0-0.3) % Absolute Neutrophils 26.50 H (1.2-6.7) 10^3/uL Absolute Lymphocytes 0.58 L (1.2-3.4) 10^3/uL Absolute Monocytes 0.86 H (0.1-0.8) 10^3/uL Absolute Eosinophils 0.00 (0.0-0.7) 10^3/uL Absolute Basophils 0.00 (0.0-0.2) 10^3/uL RBC Morphology Normal Sodium 145 (136-145) mmol/L Potassium 3.0 L (3.5-5.1) mmol/L Chloride 107 (98-107) mmol/L Carbon Dioxide 30.3 (21.0-32.0) mmol/L Anion Gap 7.7 (3-11) mmol/L BUN 28 H (7-18) mg/dL Creatinine 1.0 (0.70-1.30) mg/dL Est GFR (CKD-EPI 2020) 73.76 (mL/min/1.73m2) Glucose 124 H (74-106) mg/dL Calcium 9.4 (8.5-10.1) mg/dL Magnesium 2.4 (1.8-2.4) mg/dL Vancomycin Trough Random Vancomycin ug/mL MRSA (TEM-PCR) (Negative) 10/23/24 10:50 Blood Culture - Preliminary Blood NO GROWTH 48 HOURS 10/23/24 09:16 Blood Culture - Preliminary Blood NO GROWTH 48 HOURS [id number] Documentation Fingerstick Glucose Start: 10/23/24 13:23 Freq: .Q6H Status: Complete Protocol: Activity Type Activity Date Activity User E-sign Co-sign Detail Recorded Client Recorded Date Recorded By Document 10/24/24 18:59 BKG DAEMON(5) [id number] 10/24/24 19:01 BKG DAEMON(6) Fingerstick Glucose Start: 10/25/24 08:20 Freq: .ACHS Status: Active Protocol: Activity Type Activity Date Activity User E-sign Co-sign Detail Recorded Client Recorded Date Recorded By Document 10/25/24 17:15 BKG DAEMON(7) [id number] 10/25/24 17:16 BKG DAEMON(8) Intake and Output - 24 Hour Total 10/23/24 08:41 thru 10/25/24 15:23 Intake Total 5644.733 Output Total 450 Balance 5194.733 Weight 92.7 kg Intake: IV 4774.733 Oral 870 Output: Urine 450 Other: Urine Color Yellow Urine Appearance Clear Urine Odor Normal Comment Continent Stool Size Smear Stool Characteristics Soft Brown Falls Risk Assessment History of Falls No History 10/23/24 14:50 Contributing Factors Unstable 10/23/24 14:50 Ambulatory Aids Uses ambulatory device 10/23/24 14:50 Tubes/Lines W/no contributing factors 10/23/24 14:50 Gait Evaluation W/any additional score 10/23/24 14:50 Cognition No cognitive impairment 10/23/24 09:36 Fall Total Score 48 10/23/24 14:50 Level of Risk Moderate Risk 10/23/24 14:50 Problems (Last Reviewed 10/23/24 @ 13:47 by Josiah Atkinson) Sepsis with metabolic encephalopathy (Acute) Acute kidney injury (Acute) Hypokalemia (Acute) Hypomagnesemia (Acute) DVT prophylaxis (Acute) Acute hypoxic respiratory failure (Acute) COPD with exacerbation (Acute) Septic shock (Acute) Left lower lobe pneumonia (Acute) Type 2 diabetes mellitus (Chronic) Obstructive sleep apnea on CPAP (Chronic ~01/2022) Essential hypertension (Chronic) Notes 10/25/24 16:18 Nursing Notes by Sona Roca [facility] orders in [facility]. Order in active status, needs to be read. Nursing Note: Initialized on 10/25/24 16:18 - END OF NOTE 10/24/24 18:44 Respiratory by Igor Jolly Pt's own ResMed [id number] Auto CPAP Min Pressure: 6 Max Pressure: 16 No O2 bleed in at baseline. RT/Nursing may need to bleed in O2 during this admission. Full Face Mask Size S-M. DME: [facility]. Initialized on 10/24/24 18:44 - END OF NOTE v v v v v v v v v Sending and/or Receiving Nurses: Please use comment section below to note any information pertinent to the patient hand-off not included above. Information / Comments: Pt transferred out from ICU. He is on room air, 20 G R wrist. Report received from: Jennifer Weaver, DIRECTOR OF ANALYTICAL DEVELOPMENT
[2024-10-25] MEDS: Lidocaine 5% Patch 1 PATCH TP (20:40)
[2024-10-26] VITALS (12 sets, daily range): BP systolic 115–152; BP diastolic 36–103; PULSE 70–91; RESP 2–24; TEMP 36.4–37.5; O2SAT 91–95
[2024-10-26] MEDS: diphenhydrAMINE 25 MG CAP PO ×2 (00:24→20:51)
[2024-10-26] MEDS: Melatonin 3 MG TAB PO ×2 (01:28→20:51)
[2024-10-26] MEDS: Albuterol/Ipratropium 3 ML UPD VIAL UPD ×3 (02:16→20:43)
[2024-10-26] MEDS: Acetaminophen 325 MG TAB 650 MG PO (03:57)
[2024-10-26 07:06] LABS: Abs Immature Grans 0.08 10^3/uL (0.0-0.06); Absolute Basophil Count 0.04 10^3/uL (0.0-0.2); Basophils % 0.2 %; HCT 35.7 % (40.0-50.0); HGB 11.5 g/dL (13.5-17.5); Immature Grans % 0.4 %; Lymphocytes % 7.7 %; MCH 30.1 pg (27.0-33.0); MCHC 32.2 % (32.0-36.0); MCV 94 fL (80-95); MPV 11.4 fL (8.0-11.0); Monocytes % 3.5 %; Neutrophils % 88.2 %; RBC 3.82 10^6/uL (4.36-5.78); RDW 13.6 % (11.8-14.1); RDW-SD 46.7 fL; WBC 20.96 10^3/uL (4.4-10.8)
[2024-10-26 07:14] LABS: Absolute Lymphocyte Count 1.61 10^3/uL (1.2-3.4); Absolute Monocyte Count 0.73 10^3/uL (0.1-0.8); Absolute Neutrophil Count 18.49 10^3/uL (1.2-6.7); Anion Gap 4.5 mmol/L (3-11); BUN 30 mg/dL (7-18); CO2 30.5 mmol/L (21.0-32.0); CREATININE 0.9 mg/dL (0.70-1.30); Calcium 9.4 mg/dL (8.5-10.1); Chloride 110 mmol/L (98-107); Glucose 144 mg/dL (74-106); Potassium 3.9 mmol/L (3.5-5.1); Sodium 145 mmol/L (136-145)
[2024-10-26] MEDS: Tamsulosin 0.4 MG CAPCR PO (08:25)
[2024-10-26] MEDS: Rosuvastatin 10 MG TAB PO (08:25)
[2024-10-26] MEDS: predniSONE 20 MG TAB 40 MG PO (08:25)
[2024-10-26] MEDS: Normal Saline Flush 10 ML SYR IVP ×3 (08:26→18:08)
[2024-10-26] MEDS: Tiotropium Bromide-Respimat 10 PUFF INH 2 PUFF IH (08:46)
[2024-10-26] MEDS: Budesonide/Formoterol 160/4.5 6 GM 60 PUFF INH IH ×2 (08:46→20:44)
--- NOTE | 2024-10-26 09:48 | IN_ITS ---
PT Notes Visit Reasons: septic shock, pneumonia Inpatient Physical Therapy Evaluation Date: 10/26/24 Referring Doctor: Dr. Atkinson PT Orders: PT CONSULT: Fall safety assessment, safety consult for d/c Precautions: fall, standard Patient Profile/Admitting Diagnosis: Víctor is an 83 yo M with history of COPD (no home O2), type 2 DM, BPH and hypertension who presented via ambulance with general weakness. He was admitted for medical management of septic shock, acute hypoxic respiratory failure, and left lower lobe pneumonia. PT consult received for safety consult. Social History/Home Situation: Family present and supportive at time of consult. Together they report that Víctor lives in a private home with 2 steps to enter, no railing. He typically gets around independently. He drives independently and tinkers in his garage. 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 Equipment Owned/DME: None. Son reports that he has been looking into grab bars for the bathrooms. Subjective: Víctor states that he is feeling well. Does admit that he feels more wobbly than usual. He has never used a device before, but is not opposed to using walker. Denies pain outside of his chronic bilateral hip and low back pain. Objective: General Observation: Sitting in chair with ELECTRONICS ENGINEER present at initiation of session. IV LUE, otherwise no lines. Mental Status: A&Ox3, although requires some redirection. Pain: Baseline bilateral hips, low back ROM: Upper Extremity: Shoulder flexion allows 90 degrees bilaterally. Wrist and elbow motion WFL. Right Lower Extremity: WFL Left Lower Extremity: WFL Strength: Right Upper Extremity: Biceps 4+/5. Triceps 4+/5. Left Upper Extremity: Biceps 4+/5. Triceps 4+/5. Right Lower Extremity: Hip flexion 4/5. Quads 4/5. Ankle dorsiflexion 4 -/5. Left Lower Extremity: Hip flexion 4/5. Quads 4/5. Ankle dorsiflexion 4 -/5. Bed Mobility/Transfers: Sit?stand: Supervision, with cues for hand placement and technique Stand?sit: Supervision, with cues for hand placement and technique Sit?supine: Supervision, with increased time to perform Scooting in bed: Requires max cues and hand support to rails, but ultimately able to complete independently with increased time Gait: Ambulates 120 feet x 1, 30 feet x 2 with FWW. CGA initially, progressing to supervision ADLs: Able to stand independently to toilet. Does require minimal cues for safety. Balance: Static Sitting: Normal Dynamic Sitting: Normal Static Standing: Good Dynamic Standing: Fair 4-Position Balance Test: Small DEANNA: 10 seconds Partial Tandem: 10 seconds Full Tandem: 0 seconds Single Leg Stance: 0 seconds Special Tests: Mobility Limitations Standardized Measure [facility] AM-PAC 6 clicks Basic Mobility Inpatient Short Form: Raw Score: 22 Standardized Score: 52.28 CMS Score: 21% impairment Informed Consent/Education: Patient instructed in purpose of PT consult and plan of care. Treatment: Initial evaluation (59508) Therapeutic exercises (82238 x 1): Instructed in the following exercises: Standing hip flexion with upper extremity support to FWW 10 times Standing hip abduction with upper extremity support to FWW, 10 times Heel raises 10 times Standing shoulder flexion with CGA, 10 times to 90 degrees Standing trunk rotation without upper extremity support, CGA, 10 times Therapeutic activities (03789 x 1): Instruction in transfers admit bed mobility. Requires max cues for hand placement during sit to stand transfers. Completed 6 repetitions with improving technique. By end of session, patient is able to transfer bed to toilet with demonstration of good hand placement and equipment management. Instruction in bed mobility techniques, with patient instructed in bridging activities for improved success with scooting. Assessment: Patient is a 83year old male referred to physical therapy services an acute care setting, where he is being medically managed for septic shock and acute hypoxic respiratory failure. Patient presents with limitations in mobility due to acute medical issues, with decreased balance and safety with gait versus his baseline. He requires skilled PT intervention to maximize mobility and allow for safe transition back home once medically stable. May require FWW at discharge, depending on progress as medical status improves, He currently demonstrates the following impairment level findings: 1. Decreased activity tolerance 2. Balance impairments 3. Decreased lower extremity strength Impairments are contributing to the following functional limitations: 1. Unable to ambulate at baseline level of function, currently requiring external support to FWW 2. Decreased activity tolerance 3. Decreased safety with transfers 4. increased time to perform bed mobility Patient is assessed as a Low 54310 complexity based on the following: History: As above Examination: As above Presentation: evolving due to acute medical issues Decision Making: Low complexity Goals: Goals X1 week 1. Supine-Sit: Supervision 2. Sit-Supine : Supervision 3. Sit-Stand : Supervision 4. Stand-Sit : Supervision 5. Bed-Chair : Supervision with FWW 6. Chair-Bed: Supervision with FWW 7. Gait : Supervision with FWW x 150 feet Plan of Care/Treatment Plan: 1-2x/day, 7 days/week x 1 week. Plan of care has been reviewed with the WAGON DRILL OPERATOR providing the service under Physical Therapy direction. Initiate Physical Therapy intervention for strengthening, bed mobility, transfers, gait, stairs, balance training, use of assistive device. DISCHARGE RECOMMENDATIONS: Home with outpatient PT TREATMENT CODE/TIME: 9:00?945 (63246, 88375, 13428) Genoveva Dutton, PT, DPT [facility] All Active Problems (Updated 10/24/24 @ 16:25 by Josiah Atkinson) Sepsis with metabolic encephalopathy (Acute) Acute kidney injury (Acute) Hypokalemia (Acute) Hypomagnesemia (Acute) DVT prophylaxis (Acute) Acute hypoxic respiratory failure (Acute) COPD with exacerbation (Acute) Hematuria (Acute) Septic shock (Acute) Hypoxia (Acute) Acute alteration in mental status (Acute) Back pain (Acute) Left lower lobe pneumonia (Acute) Seborrheic keratoses (Acute) 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
[2024-10-26] MEDS: levoFLOXacin 750 MG/150 ML BAG 100 MG IVPB (11:13)
[2024-10-26] MEDS: Insulin Aspart 300 UNITS/3 ML PEN SC ×2 (12:00→17:41)
--- NOTE | 2024-10-26 14:27 | PT.INTREAT ---
PT Notes Visit Reasons: septic shock, pneumonia Inpatient Physical Therapy Treatment Note [facility] Date: 10/26/24 PRECAUTIONS: fall, standard SUBJECTIVE: Víctor states that he is feeling better. He is agreeable to PT this afternoon. OBJECTIVE: ? PAIN: denies ? BED MOBILITY/TRANSFERS? Supine-sit: supervision? Sit-supine: supervision ? Sit-stand: supervision, with cues for hand placement ? Stand-sit: supervision, with cues for hand placement ? Chair-bed: supervision with FWW? Therapeutic Exercises (88333v3): Direct one-on-one instruction in therapeutic exercises to develop strength, endurance, range of motion and flexibility. Ambulation for improved activity tolerance? Assistive Device: FWW? Weight bearing: WBAT Assist: CGA on first rep; SBA on second rep ? Distance:? 120'x2 ? Deviation: tremulous throughout, but no significant ataxia or path deviation. Demonstrates good equipment management. ? Neuromuscular Re-education (44890a5): Activities that facilitate re-education of movement balance, posture, coordination, and proprioception or kinesthetic sense, requiring skilled tactile and verbal cues ? Exercises/techniques: (standing at walker) ? small DEANNA standing, no UE support 30 seconds, CGA single leg standing 30 seconds each, bilat UE support tandem standing 30 seconds each, bilat UE support standing march 30 seconds ASSESSMENT/PLAN:? Improving activity tolerance and safety awareness. Appropriate for d/c home once medically stable. TREATMENT CODE/TIME: 6648-4905 DISCHARGE RECOMMENDATION: PRASANNA HUNTER
--- NOTE | 2024-10-26 15:22 | PGE_ITS ---
Date of Service Date of service: 10/26/24 Time of Service: 15:22 Assessment and Plan Assessment and plan (1) Septic shock: Status: Acute Assessment and plan: Sepsis a/w pneumonia, hypotension despite fluid resuscitation in ED. On norepinephrine 10/23-10/25 off at 2am, stable since. Was on hydrocortisone, transitioned to prednisone 10/25 Blood cultures NGTD. On levofloxacin (given report of severe PCN allergy) and vancomycin. Considered cefepime for better coverage of sepsis, but he still seems to be responding to this so continued. MRSA nares swab negative 10/25, stopped vancomycin He is still quite weak, so will not discharge today. Continue to mobilize with PT. Could use HH on d/c. (2) Left lower lobe pneumonia: Status: Acute Assessment and plan: Significant PCN allergy so on levofloxacin see above re: abx (3) COPD with exacerbation: Status: Acute Assessment and plan: With hypoxia, possible COPD exacerbation component, and hypotension I ordered hydrocortisone Transitioned to oral prednisone 10/25, finish 5 days Continue bronchidilators including nebs if they are helping. Holding roflumilast with acute illness (4) Acute hypoxic respiratory failure: Status: Acute Assessment and plan: As above. No CO2 retention on VBGs. Off supplemental O2 on 10/25, stable Declined using home CPAP (5) Type 2 diabetes mellitus: Status: Chronic Assessment and plan: Has been well controlled without meds as outpatient, on steroids here but BS in 100s today still, checking sugars ACHS and use ISS for now. (6) Essential hypertension: Status: Chronic Assessment and plan: resume amlodipine at 5mg as BP running higher (7) Acute kidney injury: Status: Acute Assessment and plan: Cr up from 0.8 to 1.2, likely reflecting severity of acute illness on arrival. Normalized (8) Sepsis with metabolic encephalopathy: Status: Acute Assessment and plan: Try to manage behaviorally, got haloperidol overnight 10/23 and benzo/olanzapine 10/24 De-escalated intervention when to floor status /. Imrpoving today. Given olanzapine orally in evening, but still didn't sleep well, try mirtazipine instead. (9) DVT prophylaxis: Status: Acute Assessment and plan: enoxaparin Subjective Subjective Patient reports: tolerating a regular diet and voiding w/o difficulty; denies nausea, vomiting or fever Interval history since last seen: Events: Off oxygen 10/25, vancomycin stopped after MRSA nares negative, IVF stopped, to floor. He feels better, but he is still quite weak. Breathing has improved. Needs help to sit up out of bed. worried about taking him home. Exam Narrative Exam Narrative: GEN: Sitting up in chair, fatigued looking. Oriented x 3. Still pleasant and cooperative with exam, NAD LUNGS: Very slight rales in base right. No wheezes. O2 via NC 3L CV: RRR with no murmurs, gallops, or rubs, though distant ABD: active bowel sounds, soft, nontender and nondistended. No masses. EXT: no cyanosis, clubbing. trace juan j edema. Extremities warm. Objective Last Vital Signs Temp 36.4 C L 10/26/24 11:30 Pulse 91 H 10/26/24 11:30 Resp 18 10/26/24 11:30 BP 152/72 H 10/26/24 11:30 Pulse Ox 94 10/26/24 11:30 Laboratory Results - last 24 hr 10/26/24 06:10 WBC 20.96 H RBC 3.82 L Hgb 11.5 L Hct 35.7 L MCV 94 MCH 30.1 MCHC 32.2 RDW 13.6 Plt Count MPV 11.4 H Immature Gran % 0.4 Neutrophils % 88.2 Lymphocytes % 7.7 Monocytes % 3.5 Eosinophils % 0.0 Basophils % 0.2 Nucleated RBC % 0.0 Absolute Neutrophils 18.49 H Absolute Lymphocytes 1.61 Absolute Monocytes 0.73 Absolute Eosinophils 0.00 Absolute Basophils 0.04 Sodium 145 Potassium 3.9 Chloride 110 H Carbon Dioxide 30.5 Anion Gap 4.5 BUN 30 H Creatinine 0.9 Est GFR (CKD-EPI 2020) 83.70 Glucose 144 H Calcium 9.4 Time Spent with Patient Time Spent with Patient: >50 minutes Time was spent: preparing to see the patient(eg.review tests), obtaining and/or reviewing separately otained hiistory, ordering medications,tests, procedures, referring, communicating with other health respiratory care faculty, indepentently interpreting results, counseling the patient and care coordination
[2024-10-26] MEDS: Enoxaparin 40 MG/0.4 ML SYR SC (16:14)
[2024-10-26] MEDS: Mirtazapine 15 MG TAB 7.5 MG PO (20:51)
[2024-10-26] MEDS: Patch Removal 1 EACH TP (20:55)
[2024-10-27 01:40] VITALS: PULSE 80; RESP 18; RESP 2; RESP 9; O2SAT 94
[2024-10-27] MEDS: Albuterol/Ipratropium 3 ML UPD VIAL UPD (01:40)
[2024-10-27 07:33] VITALS: BP 131/70; PULSE 91; RESP 16; TEMP 36.7; O2SAT 93
[2024-10-27] MEDS: predniSONE 20 MG TAB 40 MG PO (08:12)
[2024-10-27] MEDS: amLODIPine 10 MG TAB 5 MG PO (08:13)
[2024-10-27] MEDS: Tamsulosin 0.4 MG CAPCR PO (08:13)
[2024-10-27] MEDS: Rosuvastatin 10 MG TAB PO (08:13)
[2024-10-27] MEDS: Insulin Aspart 300 UNITS/3 ML PEN SC ×2 (08:13→11:46)
[2024-10-27] MEDS: Budesonide/Formoterol 160/4.5 6 GM 60 PUFF INH IH (08:32)
[2024-10-27] MEDS: Tiotropium Bromide-Respimat 10 PUFF INH 2 PUFF IH (08:32)
[2024-10-27] MEDS: levoFLOXacin 500 MG, levoFLOXacin 250 MG 750 MG PO (09:28)
--- NOTE | 2024-10-27 11:21 | PT.INTREAT ---
PT Notes Visit Reasons: septic shock, pneumonia Inpatient Physical Therapy Treatment Note [facility] Date: 10/27/24 PRECAUTIONS: fall, standard SUBJECTIVE: Víctor reports he was able to sleep for 1.5 hours after breakfast and is feeling good. OBJECTIVE: pt presented in chair visiting with his son.? PAIN: denies ?? ? Therapeutic Activity:? BED MOBILITY/TRANSFERS? Supine-sit: independent? Sit-supine: supervision ? Sit-stand: supervision, with cues for hand placement ? Stand-sit: supervision, with cues for hand placement ? Chair-bed: supervision with FWW? Ambulation:? Assistive Device: FWW? Weight bearing: WBAT Assist: SBA ? Distance:? 350 feet x1 75 feet x1 ? ? ?directional changes and obstacle management including through doorways and opening doors ? Deviation: no ataxia OR path deviation. Demonstrates good equipment management. ? Neuromuscular Re-education (88185s1): Activities that facilitate re-education of movement balance, posture, coordination, and proprioception or kinesthetic sense, requiring skilled tactile and verbal cues ? Exercises/techniques: (standing at walker) required sseated rest between SLS tasks. ? small DEANNA standing, no UE support 30 seconds, CGA single leg standing 30 seconds each, bilat UE support tandem standing 30 seconds each, bilat UE support standing march 30 seconds lateral stepping with BUE support 10 steps R and L ASSESSMENT/PLAN:? Improving activity tolerance and safety awareness. Pt with no tremors or ataxia noted throughout session. Pt verballized he will need the FWW at home for some time to ensure he is stable walking. Appropriate for d/c home once medically stable. TREATMENT CODE/TIME: 36504,29598/ [id number] DISCHARGE RECOMMENDATION: Patient will benefit from home health PT services in order to progress mobility level using least restrictive assistive ambulatory device, assess home safety, identify additional equipment needs, and establish a functional maintenance program that will increase ability of patient to remain at home.
[2024-10-27 11:35] VITALS: BP 135/78; PULSE 90; RESP 16; TEMP 36.6; O2SAT 92
--- NOTE | 2024-10-27 12:01 | DSE_ITS ---
Date of service: 10/27/24 Time of Service: 12:01 DS: Diagnosis Discharge Diagnosis (1) Septic shock: Status: Acute (2) Left lower lobe pneumonia: Status: Acute (3) COPD with exacerbation: Status: Acute (4) Acute hypoxic respiratory failure: Status: Acute (5) Type 2 diabetes mellitus: Status: Chronic (6) Essential hypertension: Status: Chronic (7) Acute kidney injury: Status: Acute (8) Sepsis with metabolic encephalopathy: Status: Acute (9) DVT prophylaxis: Status: Acute Discharge Plan Disposition Patient Disposition: Home W/Home Health Services Condition: Improving Discharge Details Reason For Visit: septic shock, pneumonia Admit Date/Time: 10/23/24 13:16 Admit Provider: Josiah Atkinson Attending Provider: Josiah Atkinson [facility] Course: 83 yo M with history of COPD (no home O2), type 2 DM with A1c 6.5% not on medication, BPH and hypertension who presented via ambulance with general weakness that started relatively suddening overnight prior to admission. He was febrile and hypotensive despite initial fluids and was started on norepinephrine and IV hydrocortisone. Evaluation was significant for pneumonia and he was started on levofloxacin (severe PCN allergy reported) and vancomycin. He improved clinically and came off norepinephrine 10/25. He was transitioned to oral steroids. MRSA nares swab was negative and vancomycin stopped. He received a total of 5 days of levofloxacin and steroids for pneumonia and COPD exacerbation. He had recurrent confusion in the evenings felt to be related to the steroids and acute illness. He did receive haloperidol, then lorazepam and then olanzapine. Finally mirtazipine was tried which did help sleep. He was sent home with another week of this. Amolodipine was resumed at 5mg on 10/26 and will resume previous dosing on discharge. He had mild JOSE L with creatinine up to 1.2 before normalizing to 0.9. Magnesium and potassium were supplemented. Consideration was given to cefepime trial, but he was improving on levofloxacin. He may benefit from allergy testing/delabeling. PCP follow up: Follow up 1 week on respiratory and mental status. consider allergy referral for PCN allergy delabeling. Home Meds and New Rx's Prescriptions: New mirtazapine 7.5 mg tablet 7.5 mg PO QHS Qty: 7 0RF Continued ipratropium-albuterol 0.5 mg-3 mg(2.5 mg base)/3 mL solution for nebulization 3 ml UPD Q4H PRN PRN (Reason: shortness of breath or wheezing) Qty: 90 0RF tiotropium bromide 2.5 mcg/actuation mist 2 puff inhalation DAILY albuterol sulfate 1.25 mg/3 mL solution for nebulization 1.25 mg inhalation QID PRN (Reason: shortness of breath or wheezing) Qty: 90 1RF roflumilast 500 mcg tablet 500 mcg PO DAILY CENTRUM SILVER TABLET 1 EACH tablet 1 tab PO DAILY amlodipine 10 mg tablet 10 mg PO DAILY Qty: 90 3RF rosuvastatin 10 mg tablet 10 mg PO DAILY Qty: 90 3RF epinephrine 0.3 mg/0.3 mL auto-injector 0.3 ml IM Q5-15M PRN (Reason: hypersensitivity reaction) Qty: 2 4RF fluticasone propion-salmeterol [Advair HFA] 230-21 mcg/actuation HFA aerosol inhaler 2 puff Inhalation BID Qty: 36 3RF albuterol sulfate 90 mcg/actuation HFA aerosol inhaler 2 puff Inhalation QID PRN (Reason: shortness of breath or wheezing) Qty: 3 3RF tamsulosin 0.4 mg capsule 0.4 mg PO DAILY Qty: 90 3RF lidocaine 5 % adhesive patch,medicated 1 patch topical DAILY PRN (Reason: back pain) Qty: 15 0RF Rx Instructions: leave on most painful area for up to 12 hrs Discharge Instructions Instructions: Community-Acquired Pneumonia, Adult (DC) Additional Instructions: You finished your antibiotics for pneumonia I sent one week of the medication for sleep to the pharmacy. You can also use metatonin 3-5mg. You should consider allergy testing to see if you can tolerate some penicillin family antibiotics. Activity:: Activity as Tolerated Equipment/Supplies:: No Equipment Needed Diet:: As Tolerated Discharge Orders Discharge Orders: Discharge Order (Routine); Ordered 10/27/24 Ordered By: Josiah Atkinson DS: Summary Time Spent with Patient providing and/or coordinating discharge services: Greater than 30 minutes Status at Discharge Functional status at discharge: uses cane/walker Overall status at discharge: patient is back to baseline Mental Status: mental status grossly normal Speech and Movement: speech and movement normal Mood: congruent mood Affect: normal affect Quality:SDOH Health Related Social Needs: Health related social needs transportation insecurity (Z59.82) Health related social needs details none Health related social needs details: none Exam Narrative Exam Narrative: GEN: Sitting up in chair. Oriented x 3. Pleasant and cooperative with exam, NAD LUNGS: Lungs CTAB, nl effort CV: RRR with no murmurs, gallops, or rubs, though distant ABD: active bowel sounds, soft, nontender and nondistended. No masses. EXT: no cyanosis, clubbing. trace juan j edema. Extremities warm. Psych Mental Status: mental status grossly normal Speech and Movement: speech and movement normal Mood: congruent mood Affect: normal affect DS: Data Vitals/I&O Vitals and I&O: Vital Signs Temperature 36.6 C 10/27/24 11:35 Temperature Source Temporal Artery Scan 10/27/24 11:35 Pulse 90 10/27/24 11:35 Pulse 101 H 10/25/24 07:02 Respiratory Rate 16 10/27/24 11:35 Respiratory Effort Short of Breath, Labored, Incrsd Work of Breathing 10/23/24 20:15 Respiratory Depth Normal 10/23/24 14:50 Respiratory Pattern Tachypnea 10/23/24 14:50 Blood Pressure 135/78 10/27/24 11:35 Blood Pressure Mean 97 10/27/24 11:35 Blood Pressure Position Supine 10/23/24 14:50 Pulse Oximetry 92 10/27/24 11:35 Respiratory End-tidal CO2 23 10/23/24 11:01 Oxygen Delivery Method Room Air 10/27/24 11:35 Oxygen Flow Rate 0 10/27/24 11:35 Fraction of Inspired Oxygen (FIO2) 55 10/24/24 07:40 Pain Level 0 10/27/24 11:35 Comment pt is right side lying with cuff on the left arm 10/26/24 23:17 Comment levo 7 10/23/24 13:34 Intake & Output 10/26/24 10/27/24 10/27/24 23:59 11:59 23:59 Intake Total 150 / 950 Output Total 250 / 250 200 / 200 Balance -100 / 700 -200 / -200 Weight 91.7 kg Intake: IV 150 / 150 Output: Urine 250 / 250 200 / 200 Other: Urine Color Light Barbara Urine Appearance Clear Urine Odor Normal Stool Size Small Stool Characteristics Formed Data Completed and Pending Labs on day of discharge: Labs from last 24 hours 10/26/24 06:10 Plt Count Preliminary micro results at discharge 10/23/24 09:16 Blood Blood Culture - Preliminary NO GROWTH 96 HOURS 10/23/24 10:50 Blood Blood Culture - Preliminary NO GROWTH 72 HOURS PFSH All Active Problems (Updated 10/27/24 @ 11:58 by Josiah Atkinson) Sepsis with metabolic encephalopathy (Acute) Acute kidney injury (Acute) Hypokalemia (Acute) Hypomagnesemia (Acute) DVT prophylaxis (Acute) Acute hypoxic respiratory failure (Acute) COPD with exacerbation (Acute) Hematuria (Acute) Septic shock (Acute) Hypoxia (Acute) Acute alteration in mental status (Acute) Back pain (Acute) Left lower lobe pneumonia (Acute) Seborrheic keratoses (Acute) 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) Trochanteric bursitis, right hip (Chronic) Primary osteoarthritis of right knee (Chronic) Primary osteoarthritis of right hip (Chronic) Type 2 diabetes mellitus (Chronic) Obstructive sleep apnea on CPAP (Chronic ~01/2022) COPD (chronic obstructive pulmonary disease) (Chronic) Hyperlipidemia (Chronic) BPH loc w/o ur obs/LUTS (Chronic) Essential hypertension (Chronic) Osteoarthritis (Chronic) Medical History History of tobacco use 25 packyr hx, quit age 38 Surgical History S/P colonoscopy S/P cataract surgery Family History Mother Pulmonary fibrosis Intestinal cancer Father Diabetes Heart disease Hypertension Sister Brain cancer Brother No problems noted. Son No problems noted. Daughter No problems noted. Daughter No problems noted. Social History (Updated 10/23/24 @ 13:48 by Josiah Atkinson) Smoking/Tobacco Use Status: Former Tobacco Use tobacco type: cigarettes Quit Date: 05/21/80 Tobacco: How many years used: 20 Second Hand Exposure: No Smoking risk assessment performed?: Yes Alcohol Intake: current Alcohol Intake frequency: a few times a month Alcohol type: beer Details: none in over a month Drug use: Never Substance use type: does not use Caregiver/Support person: No Household members: spouse Housing: house Communication Needs: None Do you need help understanding health information?: Often Pets and animals: No Sexually active: No Do you think of yourself as: straight/heterosexual Current gender identity: male What is your relationship status?: How often do you talk on the phone with friends or family?: never How often do you get together with friends or relatives?: once per week How often do you attend scientologist or baptist services?: decline to answer Do you belong to any clubs or organized social groups?: no Panel score (0-1 are the most socially isolated patients): 1 What type of physical activity do you participate in: none Duration: 15-30 minutes/day Frequency: does not exercise Aruna/Hoahaoism: Denominational Special aruna needs: No Seatbelt use: always Helmet use: Yes Helmet use: sometimes Drive intox or ride w/intox local city driver: No Do you feel safe at home: Yes Do you feel safe in your relationship?: Yes Additional Social history: Lives with Sergio, daughter also close. Retired , construction Time Spent with Patient Time Spent with Patient: <45 minutes Time was spent: preparing to see the patient(eg.review tests), obtaining and/or reviewing separately otained hiistory, ordering medications,tests, procedures, referring, communicating with other health health care administrator, indepentently interpreting results, counseling the patient and care coordination
--- NOTE | 2024-10-27 12:04 | PDOC.HHF2F ---
Home Health Referral Home Health Orders Clinical synopsis of why skilled professionals are needed: 83 yo M with history of COPD (no home O2), type 2 DM with A1c 6.5% not on medication, BPH and hypertension who presented via ambulance with general weakness that started relatively suddening overnight prior to admission. He was febrile and hypotensive despite initial fluids and was started on norepinephrine and IV hydrocortisone. Evaluation was significant for pneumonia and he was started on levofloxacin (severe PCN allergy reported) and vancomycin. He improved clinically and came off norepinephrine 10/25. He was transitioned to oral steroids. MRSA nares swab was negative and vancomycin stopped. He received a total of 5 days of levofloxacin and steroids for pneumonia and COPD exacerbation. He had recurrent confusion in the evenings felt to be related to the steroids and acute illness. He did receive haloperidol, then lorazepam and then olanzapine. Finally mirtazipine was tried which did help sleep. He was sent home with another week of this. Amolodipine was resumed at 5mg on 10/26 and will resume previous dosing on discharge. He had mild JOSE L with creatinine up to 1.2 before normalizing to 0.9. Magnesium and potassium were supplemented. Consideration was given to cefepime trial, but he was improving on levofloxacin. He may benefit from allergy testing/delabeling. He was evaluated by PT for weakness and recommended for home health PT and RN. PCP follow up: Follow up 1 week on respiratory and mental status. consider allergy referral for PCN allergy delabeling Medical diagnosis necessitation home health referral: sepsis, pneumonia, COPD, weakness Registered Nurse: Check all that apply Assess for exacerbation of medical condition, instruct patient/caregivers on signs and symptoms to report for early detection: Ordered Physical Therapist: Check all that apply Increase strength & endurance for safe mobility at home: Ordered To design/establish home maintenance program: Ordered Home safety evaluation and teaching/gait training including stair management (if applicable): Ordered Home Bound Status Requires the aid of supportive device (check all that apply): Cane and Walker Describe why leaving home would require a considerable and taxing effort: Side effects from pain medication (sedation/drowsiness), Requires frequent rest periods and Confusion Encounter Date and Reason: I certify that a FTF encounter for this patient was performed on October 27, 2024 and that such encounter was related to the primary reason the patient requires home health services. The encounter was conducted in the following manner: By me as the certifying physician, EXPLOSIVE OPERATOR SUPERVISOR, PA or By an inpatient physician, EXPLOSIVE OPERATOR SUPERVISOR or PA during an inpatient stay who communicated findings to me, Certification And Authentication I certify that I composed the above information based on my clinical judgment relating to this patient's medical condition and, if applicable, clinical findings communicated to me by the NPP or inpatient physician who performed the FTF encounter. Name of Provider that will be monitoring home health services: Vivienne Wells
--- NOTE | 2024-10-27 12:10 | PDOC.CMDIS ---
Date of service: 10/27/24 Time of Service: 12:10 LACE Index Scoring Tool Questions: Length of Stay (in days): 4 - 6 Was the patient admitted via the E.D.?: Yes Comorbidities: Diabetes w/o Complication and Chronic Pulmonary Disease E.D. Visits: 2 Answers: Total Score: 12 Risk of Readmission: High Risk Care Management Discharge Plan Reason for Hospitalization: pneumonia Discharge Plan: Víctor will discharge home this afternoon with new services of [facility] RN and PT. Víctor and his are agreeable to these services. He will f/u with his PCP and continue per his plan of care. Víctor will transport home with family. Patient/Family Education Needs: Review of discharge instructions, activity, limitations and discuss Ask me 3. Services Needed at Discharge: Home Health Care Services (new [facility] RN and PT) SDOH Health Related Social Needs: Health related social needs transportation insecurity (Z59.82) Health related social needs details none Health related social needs details: none
== END 2024-10-27 12:39 | disposition home health service (06) | DRG 871 ==
LOC: ER 14:13 → ICU 14:49 → MS 10-25 16:29
PROVIDERS: Admitting Provider Family Medicine; Emergency Provider Student in an Organized Health Care Education/Training Program; PCP Nurse Practitioner Family; Responsible Provider Family Medicine; Visit Provider Family Medicine
DX: A41.9 Sepsis, unspecified organism (principal); G93.41 Metabolic encephalopathy; J18.9 Pneumonia, unspecified organism; R65.21 Severe sepsis with septic shock; J96.01 Acute respiratory failure with hypoxia; J44.0 Chronic obstructive pulmonary disease with (acute) lower respiratory infection; J44.1 Chronic obstructive pulmonary disease with (acute) exacerbation; N17.9 Acute kidney failure, unspecified; F05 Delirium due to known physiological condition; G47.33 Obstructive sleep apnea (adult) (pediatric); E11.9 Type 2 diabetes mellitus without complications; I10 Essential (primary) hypertension; E83.42 Hypomagnesemia; E87.6 Hypokalemia; Z79.899 Other long term (current) drug therapy; M54.50 Low back pain, unspecified; Z78.1 Physical restraint status; E86.0 Dehydration; N40.0 Benign prostatic hyperplasia without lower urinary tract symptoms; E78.5 Hyperlipidemia, unspecified; G25.2 Other specified forms of tremor; M70.61 Trochanteric bursitis, right hip
CPT/HCPCS: 00123; 36415; 80048; 80053; 82805; 87040; 87637; 87641; 93005; 94640; 94761; 96361; 96365; 96366; 96367; 96375; 97110; 97112; 97161; 97530; 99291; J1650; 71045; 80202; 81003; 81015; 83605; 83735; 83880; 84484; 85025; 93010; 94664; 94667; 94668; 94760; 99223; 99233; 99239; J0131; J1630; J1720; J1815; J1956; J2060; J2250; J2359; J3372; J3475; J3480; J3490; J7512; J7620

== ENCOUNTER 2024-11-05 01:59 | Outpatient (CLI) | payer MEDICARE, OTHER, SELFPAY ==
--- NOTE | 2024-11-05 08:15 | DI.RAD_ITS ---
Exam(s) XR HAND RT COMPLETE XR WRIST RT COMPLETE EXAM: XR HAND RT COMPLETE and XR wrist RT complete CLINICAL HISTORY: fall,PAIN RT THUMB,M79.644. TECHNIQUE: 2D digital imaging was performed of the right wrist and hand. Six images were obtained. AP, lateral and oblique views were obtained. COMPARISON: CR RIGHT WRIST COMPLETE from 11/02/2010 FINDINGS: BONES: No acute fracture is present. No bony destructive lesion is seen. JOINTS: No dislocation present. There are mild degenerative changes seen in the hand and wrist. SOFT TISSUE: Extensive vascular calcifications are present. No radiopaque foreign bodies are seen. IMPRESSION: No acute fracture or dislocation. DATA REPOSITORY: RADIATION DOSE DELIVERED:
== END 2024-11-05 02:19 ==
LOC: DI 01:59
PROVIDERS: PCP Nurse Practitioner Family; Visit Provider Nurse Practitioner Family
DX: M25.531 Pain in right wrist (principal); M79.644 Pain in right finger(s)
CPT/HCPCS: 73110; 73130

== ENCOUNTER → 2024-12-10 10:24 | Outpatient (BNVA) | payer MEDICARE, OTHER, SELFPAY | PROVIDERS: PCP Nurse Practitioner Family; Referring Provider Nurse Practitioner Family; Visit Provider Psychiatry & Neurology Neurology | DX: G25.0 Essential tremor (principal); E11.59 Type 2 diabetes mellitus with other circulatory complications; I10 Essential (primary) hypertension; J44.9 Chronic obstructive pulmonary disease, unspecified | CPT/HCPCS: 99215 ==

== ENCOUNTER 2024-12-15 12:27 | Outpatient (CLI) | payer MEDICARE, OTHER, SELFPAY ==
--- NOTE | 2024-12-15 | DI.RAD_ITS ---
Exam(s) XR CHEST 2V PA LATERAL EXAM: XR CHEST 2V PA LATERAL CLINICAL HISTORY: ACUTE COUGH, R05.1. TECHNIQUE: 2D digital imaging was performed. COMPARISON: CR XR PORTABLE CHEST AP from 10/23/2024 FINDINGS: 2 views: Heart size is normal. The mediastinum is not widened. Mild increased markings in the left lower lobe. The left lung infiltrate which was evident on 10/23/2024 is significantly decreased in size. There are no pleural effusions at this time. No pulmonary edema. IMPRESSION: Resolution of previously present left lung infiltrate seen on 10/23/2024 chest x-ray. There is some mild increased left lower lobe markings which are possibly vascular versus remnant of prior larger infiltrate. There are no pleural effusions. DATA REPOSITORY: RADIATION DOSE DELIVERED:
== END 2024-12-15 12:47 ==
LOC: DI 12:27
PROVIDERS: PCP Nurse Practitioner Family; Visit Provider Physician Assistant Medical
DX: R05.1 Acute cough (principal)
CPT/HCPCS: 71046

== ENCOUNTER → 2024-12-25 09:12 | Outpatient (BNVA) | payer MEDICARE, OTHER, SELFPAY | PROVIDERS: PCP Nurse Practitioner Family; Referring Provider Nurse Practitioner Family; Visit Provider Internal Medicine Pulmonary Disease | DX: J43.1 Panlobular emphysema (principal); G47.33 Obstructive sleep apnea (adult) (pediatric); J18.9 Pneumonia, unspecified organism; Z99.89 Dependence on other enabling machines and devices; Z87.891 Personal history of nicotine dependence | CPT/HCPCS: 99215 ==

== ENCOUNTER 2024-12-25 10:19 | Outpatient (CLI) | payer MEDICARE, OTHER, SELFPAY | END 2024-12-25 10:20 | disposition home or self-care (01) | LOC: LBO 10:21 | PROVIDERS: PCP Nurse Practitioner Family; Visit Provider Internal Medicine Pulmonary Disease | DX: J18.9 Pneumonia, unspecified organism (principal); J43.1 Panlobular emphysema | CPT/HCPCS: 36415; 82784; 99215; 82785 ==

== ENCOUNTER 2025-01-02 09:59 | Outpatient (CLI) | payer MEDICARE, OTHER, SELFPAY ==
--- NOTE | 2025-01-02 06:45 | DI.CT_ITS ---
Exam(s) CT SINUS WO EXAM: CT SINUS WO CLINICAL HISTORY: nighttime cough, severe COPD,J43.1,R05.8. Evaluate for sinusitis. TECHNIQUE: Imaging Protocol: Axial computed tomography images with coronal and sagittal reformatted images were created and reviewed. COMPARISON: No exams were available for comparison FINDINGS: Frontal sinuses: Mild mucous retention at the floor of the right frontal sinus. Ethmoid air cells: Opacification of few ethmoid sinuses. Maxillary sinuses: Bilateral mucous retention at the floors of the maxillary sinuses. Sphenoid sinuses: Normally aerated. Ostiomeatal complexes: Patent. Nasal cavity: The nasal septum is deviated toward the left. Visualized regional soft tissues: No acute findings. Orbits: Unremarkable. Bones: Unremarkable. Mastoid Air Cells: Normally aerated. Visualized portions of the brain: Unremarkable as visualized. IMPRESSION: Jzit-qo-mshnibiu and maxillary chronic sinus disease. Mild right frontal sinus disease. RADIATION DOSE DELIVERED: 126.16mGy.cm Total DLP DATA REPOSITORY: All CT scans at this facility are submitted to the National Radiology Data Registry (NRDR) Dose Index Registry (DIR) with the [employer] (ACR). RADIATION OPTIMIZATION: All CT scans at this facility use at least one of these dose optimization techniques: automated exposure control; mA and/or kV adjustment per patient size (includes targeted exams where dose is matched to clinical indication); or iterative reconstruction.
--- NOTE | 2025-01-02 06:45 | DI.CT_ITS ---
Exam(s) CT CHEST WO EXAM: CT CHEST WO CLINICAL HISTORY: f/u CXR; LLL,COPD,PANLOBULAR EMPHYSEMA,J43.1. TECHNIQUE: Imaging protocol: Axial computed tomography images were obtained and coronal and sagittal reformatted images were created and reviewed. Computer aided detection (CAD) was utilized. CONTRAST MATERIAL: Noncontrast COMPARISON: CT CHEST WITH CONTRAST from 11/26/2017 CR XR CHEST 2V PA LATERAL from 02/19/[address] CHEST WO from 03/08/2023 CR XR PORTABLE CHEST AP from 10/23/2024 CR XR CHEST 2V PA LATERAL from 12/15/2024 FINDINGS: Pulmonary parenchyma: Area of scarring/atelectasis noted at the left posterior lung base appear similar to 2022. There is linear atelectasis at the inferior lingula and posterior right lung base. No suspicious nodules. Emphysema: No visible emphysematous changes. Tracheobronchial tree: There is some mucous plugging in posterior left lower lobe bronchi, in area of scarring. No bronchiectasis . Pleura: No effusion or pneumothorax. Heart: The heart is not dilated. The coronary arteries show severe calcifications. Stable appearance of mild pericardial thickening. Aorta: Thoracic aorta non-dilated. Mild atherosclerotic changes. Lymph nodes: No enlarged lymph nodes. Bones: Bridging osteophytes in the thoracic spine.. No evidence of compression fracture. Upper abdomen: Unremarkable. Soft tissues: Unremarkable. IMPRESSION: Left lower lobe atelectasis/scarring as well as mucous plugging. No evidence of suspicious mass. RADIATION DOSE DELIVERED: 291.31mGy.cm Total DLP 291.31mGy.cm Total DLP DATA REPOSITORY: All CT scans at this facility are submitted to the National Radiology Data Registry (NRDR) Dose Index Registry (DIR) with the [employer] (ACR). RADIATION OPTIMIZATION: All CT scans at this facility use at least one of these dose optimization techniques: automated exposure control; mA and/or kV adjustment per patient size (includes targeted exams where dose is matched to clinical indication); or iterative reconstruction.
== END 2025-01-02 10:19 ==
LOC: DI 09:59
PROVIDERS: PCP Nurse Practitioner Family; Visit Provider Family Medicine
DX: J43.1 Panlobular emphysema (principal); R05.8 Other specified cough
CPT/HCPCS: 71250; 70486

== ENCOUNTER 2025-02-06 11:37 | Outpatient (CLI) | payer MEDICARE, OTHER, SELFPAY ==
[2025-02-06 14:18] LABS: Abs Immature Grans 0.02 10^3/uL (0.0-0.06); HCT 40.2 % (40.0-50.0); HGB 12.9 g/dL (13.5-17.5); Immature Grans % 0.2 %; MCH 29.9 pg (27.0-33.0); MCHC 32.1 % (32.0-36.0); MCV 93 fL (80-95); RBC 4.32 10^6/uL (4.36-5.78); RDW 13.9 % (11.8-14.1); RDW-SD 47.2 fL; WBC 8.98 10^3/uL (4.4-10.8)
[2025-02-06 14:31] LABS: ALT 27 U/L (16-63); AST 19 U/L (15-37); Albumin 3.4 g/dL (3.4-5.0); Alkaline Phosphatase 56 U/L (46-116); Anion Gap 5.6 mmol/L (3-11); BUN 17 mg/dL (7-18); Bilirubin, Total 0.4 mg/dL (0.2-1.0); CO2 29.4 mmol/L (21.0-32.0); Calcium 9.3 mg/dL (8.5-10.1); Calculated LDL 64 mg/dL (<100); Chloride 107 mmol/L (98-107); Cholesterol 142 mg/dL (<200); Estimated GFR 94.01 (mL/min/1.73m2); Glucose 100 mg/dL (74-106); HDL Cholesterol 50 mg/dL (>or=40); Potassium 4.1 mmol/L (3.5-5.1); Sodium 142 mmol/L (136-145); Total Protein 7.3 g/dL (6.4-8.2); Triglyceride 140 mg/dL (<150)
[2025-02-06 14:33] LABS: RBC Morphology Normal
[2025-02-06 22:26] LABS: Lab Add On Test DONE
[2025-02-06 23:07] LABS: PSA, Screening 1.3 ng/mL (<=6.5)
[2025-02-07 00:28] LABS: Ferritin 269 ng/mL (26-388); Vitamin B12 674 pg/mL (193-986)
[2025-02-09 09:20] LABS: Folate >24.0 ng/mL (See Note)
== END 2025-02-06 11:38 | disposition home or self-care (01) ==
LOC: LOS 11:37
PROVIDERS: PCP Nurse Practitioner Family; Visit Provider Nurse Practitioner Family
DX: J18.9 Pneumonia, unspecified organism (principal); J43.1 Panlobular emphysema; E78.5 Hyperlipidemia, unspecified; Z12.5 Encounter for screening for malignant neoplasm of prostate; D64.9 Anemia, unspecified
CPT/HCPCS: 36415; 80053; 80061; 84153; 82607; 82728; 82746; 85025

== ENCOUNTER 2025-02-09 22:17 | Outpatient (REF) | payer MEDICARE, OTHER, SELFPAY ==
[2025-02-09 22:19] LABS: Glucose Negative (Negative)
[2025-02-10 15:18] LABS: COMMENT (LAB VIEW ONLY) 153.84 mg/dL; Microalb ug/mg Crea 18.3 ug/mg Cr
== END 2025-02-09 22:18 | disposition home or self-care (01) ==
LOC: LBN 22:17
PROVIDERS: PCP Nurse Practitioner Family; Visit Provider Nurse Practitioner Family
DX: E11.9 Type 2 diabetes mellitus without complications (principal); R22.9 Localized swelling, mass and lump, unspecified; R31.9 Hematuria, unspecified
CPT/HCPCS: 81003; 82043; 82570

== ENCOUNTER 2025-02-16 16:38 | Outpatient (REF) | payer MEDICARE, OTHER, SELFPAY ==
[2025-02-16 16:38] LABS: HCT 40.8 % (40.0-50.0); HGB 13.0 g/dL (13.5-17.5); MCH 29.5 pg (27.0-33.0); MCHC 31.9 % (32.0-36.0); MCV 93 fL (80-95); RBC 4.41 10^6/uL (4.36-5.78); RDW 13.9 % (11.8-14.1); RDW-SD 47.3 fL; WBC 8.03 10^3/uL (4.4-10.8)
[2025-02-16 16:56] LABS: ALT 21 U/L (16-63); AST 18 U/L (15-37); Albumin 3.6 g/dL (3.4-5.0); Alkaline Phosphatase 61 U/L (46-116); Anion Gap 6.9 mmol/L (3-11); BUN 15 mg/dL (7-18); Bilirubin, Total 0.5 mg/dL (0.2-1.0); CO2 30.1 mmol/L (21.0-32.0); Calcium 9.8 mg/dL (8.5-10.1); Chloride 106 mmol/L (98-107); Estimated GFR 89.73 (mL/min/1.73m2); Glucose 97 mg/dL (74-106); Potassium 4.1 mmol/L (3.5-5.1); Sodium 143 mmol/L (136-145); Total Protein 7.0 g/dL (6.4-8.2)
== END 2025-02-16 16:39 | disposition home or self-care (01) ==
LOC: NCHCN 16:38
PROVIDERS: PCP Nurse Practitioner Family; Visit Provider Nurse Practitioner Family
DX: R58 Hemorrhage, not elsewhere classified (principal); R04.0 Epistaxis
CPT/HCPCS: 80053; 85027

== ENCOUNTER 2025-02-18 11:31 | Outpatient (CLI) | payer MEDICARE, OTHER, SELFPAY ==
[2025-02-18 11:50] LABS: HCT 40.6 % (40.0-50.0); HGB 13.4 g/dL (13.5-17.5); MCH 30.9 pg (27.0-33.0); MCHC 33.0 % (32.0-36.0); MCV 94 fL (80-95); MPV 10.9 fL (8.0-11.0); Platelet Count 159 10^3/uL (130-400); RBC 4.34 10^6/uL (4.36-5.78); RDW 13.8 % (11.8-14.1); RDW-SD 47.5 fL; WBC 9.37 10^3/uL (4.4-10.8)
== END 2025-02-18 11:32 | disposition home or self-care (01) ==
LOC: LBO 11:31
PROVIDERS: PCP Nurse Practitioner Family; Visit Provider Nurse Practitioner Family
DX: R04.0 Epistaxis (principal)
CPT/HCPCS: 36415; 76881; 85027

== ENCOUNTER → 2025-03-20 03:31 | Outpatient (CLI) | payer MEDICARE, OTHER, SELFPAY ==
--- NOTE | 2025-03-20 07:00 | DI.MRI_ITS ---
Exam(s) MR UPPER EXTREMITY RT WO EXAM: MR UPPER EXTREMITY RT WO CLINICAL HISTORY: right upper arm nodule,r22.9 TECHNIQUE: Multiplanar multisequence MRI was performed on 1.5 khushboo unit. Field of view use in the upper arm was to include the region of interest described on the recent ultrasound COMPARISON: US US SOFT TISSUE EXTREMITY from 02/18/2025 FINDINGS: MARROW:There is no evidence of abnormal marrow signal in the visualized part of the adjacent humerus MUSCLES: There is no evidence of abnormal signal nor mass in the visualized muscles. EXTRAMUSCULAR SOFT TISSUES: There is a well-defined slightly lobulated cystic- appearing structure in the subcutaneous fat in the posterior medial aspect of the upper arm at this level, measuring 2 cm craniocaudal by 1.2 cm by 1.0 cm. It exhibits hypo intense signal on T1 images and hyper intense signal on fat sat T2 images. On the T2 images it appears to contain some very thin internal septations. There is no edema in the adjacent fat. Although this is quite superficial, there does not appear to be communication with the skin surface. There is no overlying skin ulcer. There is no edema in the adjacent subcutaneous fat. OTHER: There is no adenopathy evident in the partially visualized ipsilateral axilla. IMPRESSION: 1. Well-defined 2 x 1.2 x 1.0 cm cystic appearing nodule in subcutaneous fat on the posteromedial aspect of the upper right arm. Although this appears somewhat cystic on today's MRI scan, it did not appear cystic on the recent ultrasound exam. In addition, today's MRI reveals some thin internal septations on the T2 weighted images. Due to the discordance between MRI and ultrasound findings are recommend additional sequences following contrast injection. If there is internal enhancement then biopsy would be warranted. DATA REPOSITORY:
== END ==
LOC: DI 03:31
PROVIDERS: PCP Nurse Practitioner Family; Visit Provider Nurse Practitioner Family
DX: R22.31 Localized swelling, mass and lump, right upper limb (principal)
CPT/HCPCS: 73218

== ENCOUNTER → 2025-03-24 10:50 | Outpatient (BNVA) | payer MEDICARE, OTHER, SELFPAY | PROVIDERS: PCP Nurse Practitioner Family; Referring Provider Nurse Practitioner Family; Visit Provider Internal Medicine Pulmonary Disease | DX: J43.1 Panlobular emphysema (principal); R06.00 Dyspnea, unspecified; R91.1 Solitary pulmonary nodule; G47.33 Obstructive sleep apnea (adult) (pediatric); Z87.891 Personal history of nicotine dependence; J18.9 Pneumonia, unspecified organism | CPT/HCPCS: 99214 ==

== ENCOUNTER → 2025-04-22 01:16 | Outpatient (CLI) | payer MEDICARE, OTHER, SELFPAY ==
--- NOTE | 2025-04-22 07:15 | DI.MRI_ITS ---
Exam(s) MR UPPER EXTREMITY RT W EXAM: MR UPPER EXTREMITY RT W CLINICAL HISTORY: RUE SUBCUTANEOUS NODULE,r22.9 TECHNIQUE: Multiplanar multisequence MRI was performed. Intravenous contrast: 20 mL Dotarem COMPARISON: MR MR UPPER EXTREMITY RT WO from 03/20/2025 FINDINGS: MARROW:No abnormal marrow signal in the humerus within the field of view of this study. There are no significant osseous lesions. MUSCLES: There is no evidence of abnormal signal nor mass in the visualized muscles. EXTRAMUSCULAR SOFT TISSUES: Again noted is a previously described well-defined slightly lobulated mass in the subcutaneous fat layer in the posteromedial aspect of the upper arm, measuring 2 cm craniocaudal x 1.2 cm x 1.0 cm. This does not have the appearance of a lipoma. Appears similar size to MRI scan of 1 month ago (03/20/2025). Again hypointense on T1 images and hyperintense on T2 images but again noted to contain internal septations. On today's contrast infused study there does appear to be some internal enhancement of this lesion. There is again no acute acute in channel between this subcutaneous lesion and the dermis. There is no overlying skin ulcer. There is no surrounding edema in the subcutaneous fat. The lesion does not reach the the fascia overlying the muscle layer and there is no abnormal intramuscular signal or nor intramuscular enhancement. IMPRESSION: 1. The previously described 2 x 1.2 x 1.0 cm subcutaneous well-defined lobulated nodule exhibits minimal if any significant change in size from the prior noninfused MRI scan of March 20, 2025. However, on today's contrast infused study there does appear to be significant internal enhancement of this lesion and therefore excisional biopsy is recommended to rule out neoplasm/lymphoma/metastatic. This lesion does not have the appearance of a typical benign lipoma. DATA REPOSITORY:
[2025-04-22] MEDS: Gadoterate meglumine 20 ML SYRINGE IJ (10:54)
[2025-04-22] MEDS: Normal Saline Flush 10 ML SYR IVP (10:54)
== END ==
PROVIDERS: PCP Nurse Practitioner Family; Visit Provider Nurse Practitioner Family
DX: R22.9 Localized swelling, mass and lump, unspecified (principal)
CPT/HCPCS: 73129; 73219

== ENCOUNTER → 2025-05-06 12:51 | Outpatient (BNVA) | payer MEDICARE, OTHER, SELFPAY | PROVIDERS: PCP Nurse Practitioner Family; Referring Provider Nurse Practitioner Family; Visit Provider Surgery | DX: R22.31 Localized swelling, mass and lump, right upper limb (principal); L98.9 Disorder of the skin and subcutaneous tissue, unspecified; E11.9 Type 2 diabetes mellitus without complications; J43.1 Panlobular emphysema | CPT/HCPCS: 99214 ==

== ENCOUNTER 2025-05-11 06:05 | Day surgery (SDC) | payer MEDICARE, OTHER, SELFPAY ==
[2025-05-11] VITALS (17 sets, daily range): BP systolic 98–159; BP diastolic 40–70; PULSE 63–80; RESP 14–20; TEMP 36.3–36.7; O2SAT 93–98; BMI 33.7
[2025-05-11] MEDS: Lactated Ringers 1,000 ML 80 ML IV (06:48)
--- NOTE | 2025-05-11 07:06 | ANES.PREOP_ITS ---
General Info Date of Service Date Performed: 05/11/25 Height: 5 ft 8 in Weight: 100.5 kg Body Mass Index (BMI): 33.7 Surgical Procedure: Operation Date: 05/11/25 07:40 Proposed Procedure Side Surgeon p Excisional Biopsy of Upper Arm Soft Tissue Mass, Excision Lower Leg Skin Lesion Right Jennifer Londono MD Meds Allergies and Home Medications Allergies Allergy/AdvReac Type Severity Reaction Status Date / Time Penicillins Allergy Unknown unknown Verified 05/11/25 06:23 venom-honey bee Allergy Unknown unknown Verified 05/11/25 06:23 hydrochlorothiazide AdvReac Intermediate Cough Verified 05/11/25 06:23 doxycycline AdvReac Chest Verified 05/11/25 06:23 tightness DOG DANDER Allergy Unknown unknown Uncoded 05/11/25 06:23 DUST Allergy Unknown unknown Uncoded 05/11/25 06:23 Home Medication ?Medication ?Instructions ?Recorded Centrum Silver Tablet 1 tab PO DAILY 08/21/12 tiotropium bromide 2.5 2 puff inhalation DAILY 10/20 0/24 mcg/actuation mist for inhalation epinephrine 0.3 mg/0.3 mL 0.3 ml IM Q5-15M PRN 4 injection, auto-injector hypersensitivity reaction #2 ea lidocaine 5 % topical patch 1 patch topical DAILY PRN back 06/15/24 pain #15 ea fluticasone propionate 230 2 puff inhalation BID #36 g bonifacio 06/30/24 mcg-salmeterol 21 mcg/actuation HFA inhaler (Advair HFA) roflumilast 500 mcg tablet 500 mcg PO DAILY 07/28/24 albuterol sulfate 90 mcg/actuation 2 puff inhalation Q ID PRN 08/21/24 aerosol inhaler shortness of breath or wheez ing #3 ea tamsulosin 0.4 mg capsule 0.4 mg PO DAILY #90 caps amlodipine 10 mg tablet 10 mg PO DAILY #90 tabs 10/20 10/12 rosuvastatin 10 mg tablet 10 mg PO DAILY #90 tabs 01/19 02/12 albuterol sulfate 1.25 mg/3 mL 1.25 mg (3 mL) inhalati on QID PRN 03/24/25 solution for nebulization shortness of breath or wheez ing #90 mL Current Visit Medications: Current Medications Generic Name Dose Route Start Last Admin Trade Name Freq PRN Reason Stop Dose Admin Ringer's Solution 1,000 mls @ 80 mls/hr 05/11/25 06:00 05/11/25 06:48 IV 06/07/25 23:59 80 mls/hr INFUSION LELAND Administration Sodium Chloride 0 ml 05/11/25 06:00 Normal Saline Flush 10 Ml Syr IV 06/07/25 23:59 PRN PRN Sodium Chloride 0 ml 05/11/25 06:00 Normal Saline 10 Ml Vial IJ 06/07/25 23:59 DIRECTED PRN Sterile Water 0 ml 05/11/25 06:00 Water,Injection,Sterile 10 Ml Vial IJ 06/07/25 23:59 DIRECTED PRN PFSH Active Problems Active Problems: Problem Status Onset Code Skin lesion of right lower extremity Acute L98.9 Mass of right upper extremity Acute R22.31 JUANA (obstructive sleep apnea) Chronic G47.33 Pulmonary nodule Acute R91.1 Dyspnea Acute R06.00 Epistaxis Acute R04.0 COPD (chronic obstructive pulmonary disease) Chronic J44.9 Hypoxia Acute R09.02 Essential hypertension Chronic I10 Prediabetes Chronic R73.03 Hematuria Acute R31.9 Hyperlipidemia Chronic E78.5 Essential tremor Acute G25.0 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 N40.0 Primary osteoarthritis of right hip Chronic M16.11 Primary osteoarthritis of right knee Chronic M17.11 Trochanteric bursitis, right hip Chronic M70.61 Osteoarthritis Chronic M19.90 Medical History Medical History Obstructive sleep apnea on CPAP (~01/2022) Type 2 diabetes mellitus History of tobacco use 25 packyr hx, quit age 38 Surgical History Surgical History S/P colonoscopy S/P cataract surgery Tobacco Smoking/Tobacco Use Status: Former Tobacco Use Passive smoking exposure: Yes Second hand exposure: No Alcohol Alcohol Intake: current Alcohol intake frequency: a few times a month Alcohol type: beer Details: none in over a month Substance Use Substance use: Never Substance use type: does not use Vital Signs and Lab Results Vital Signs Most Recent Vital Signs in EMR: Most Recent Vital Signs Temp Pulse Resp BP Pulse Ox 36.6 C 80 14 129/70 95 05/11/25 06:31 05/11/25 06:31 05/11/25 06:31 05/11/25 06:31 05/11/25 06:31 Point of Care Results Point of Care Results: Finger Stick Blood Glucose 114 05/11/25 06:20 Imaging and Studies Imaging and Studies Study information below may be from another EMR and interpreted by another provider. Please see original notes in EMR for more complete details. EKG Summary: 10/23/24 Conclusion Sinus tachycardia...rate> 99 Nonspecific repol abnormality, diffuse leads...ST dep, T flat/neg, ant/lat/inf Stress Test Summary: Ordering Provider: Vivienne Ceja NP Status: [facility] Primary Care Provider: Vivienne Ceja NP Date of Exam: 02/19/23 Sex: M Admission Date: 02/19/23 : 1940 Age: 82 APPROVED REPORT Exam: Pharmacologic Patient Location: Out-Patient Room/Bed: Stress Nurse: Juan Grigsby RN Ordering Provider:VIVIENNE CEJA, Contact Number: BMI: 36.48 Baseline Rhythm: Sinus Rhythm Comment: Ocasional unifocal PVC's. Indications: CP, ANDREWS. Medical History Medical History: HTN, HLD, COPD, JAUNA. Cardiac Medications: Amlodi, Amlodipine, ipratropium-albuterol, albuterol. Allergies: PCN, Doxycyline. Cardiac Risk Factors: HTN, COPD, Obesity, SOB, Hyperlipidemia, JUANA. Previous Cardiac Procedures: none Pretest Chest Pain Characteristics: No chest pain Exercise History: Sedentary Physical Disabilities: Deconditioned. Lung Sounds: Severely diminished. Heart Sounds: Regular, distant. Stress Test Details Test: Pharmacologic stress testing performed using 0.4 mg of regadenoson per 5 mL given IV over 10 seconds. Reason for pharmacologic stress test: physical limitation. Nuclear Acquisition: Rest Tc-99m/Stress Tc-99m 1 day Rest Isotope: Tc-99m Sestamibi. Dose: 10.5 Date: 02/19/2023 Injection Time: 0845 Stress Isotope: Tc-99m Sestamibi. Dose: 10.32 Date: 02/19/2023 Injection Time: 1032 HR Resting HR Supine: 72 bpmMax Heart Rate (APMHR): 136.982260 bpm Target HR (85% APMHR): 115.631690 bpm Max HR Achieved: 83 bpm % of APMHR: 61.03 Recovery HR: 83 bpm BP Resting BP Supine: 174/84 mmHg Max BP: 174/84 mmHg Recovery BP: 140/72 mmHg ECG Resting ECG: SR Ectopy: Unifocal PVC's Stress ECG: SR ST Change: No significant ST segment changes noted Arrhythmia: Unifocal PVC's Recovery ECG: SR Recovery ST Change: No significant ST segment changes noted Recovery Arrhythmia: Unifocal PVC's Echocardiogram Summary: 04/19/23 Conclusion Normal left ventricular wall thickness and chamber size. Ejection fraction is 58%. Wall motion is normal. Diastolic function is normal for age Normal right ventricular size and systolic function Both atria are normal in size Aortic valve is probably trileaflet and mildly sclerotic without stenosis or regurgitation No additional structural or hemodynamically significant valvular disease identified Ventricular systolic pressure could not be estimated Pulmonary Function Summary: Pulmonary Function Test PATIENT NAME: Dagoberto May UNIT #: [id number] ADMITTING PROVIDER: Elle Suarez M.D. PRIMARY CARE PROVIDER: VIVIENNE CEJA NP DATE OF ADMIT: 02/16/23 : 1940 Date of service: 02/16/23 Time of Service: 14:53 Pulmonary Function Test Result Indications: Dyspnea Interpretation Spirometry: There is moderate airflow limitation. No significant bronchodilator response. Lung Volumes: There is air trapping Diffusion Capacity: Borderline low diffusion Airway Pressure: Normal airways resistance Impression Moderate airflow obstruction with air trapping and a borderline diffusion. This could represent COPD with or without emphysema. Clinical Correlation therefore is recommended. cc: Dictated by: ELLE SUAREZ MD Dictated: 02/19/23 Time: 1324 <Electronically signed by Elle Suarez M.D.> Date: 02/19/23 1326 Date: Anesthesia Assessment and Plan Anesthesia History Personal History: No History of Anesthesia Complications Family History: No Family History of Anesthesia Complications Exercise Tolerance Exercise Tolerance: Metabolic Equivalents<4 Pertinent Negatives Pertinent Negatives: No Symptoms of GERD, No Major Cardiovascular Symptoms or Complaints and No Major Pulmonary Symptoms or Complaints (baseline wheeze and ANDREWS, dry cough) Cardiac & Pulmonary Exam Cardiac Exam: Normal S1/S2 Heart Sounds Pulmonary Exam: Wheezing Present Implantable Cardiac Device Does patient have a Pacemaker or an ICD?: No Airway Exam Known Difficult Airway: No Mallampati Class: 3 Mouth Opening: Normal (> 3cm) Thyromental Distance: Greater than 3 cm Neck Range of Motion: Full ROM Neck Circumference: Thick Teeth Condition: Removable Dentures/Plates Upper, Removable Dentures/Plates Lower and Edentulous ASA Classification ASA Score: ASA 3 Emergency Case?: No NPO Status NPO Status: NPO Clears >2 hours, Solids >8 hours Anesthesia Plan Resuscitation Status: Full Code Anesthesia Technique: General Anesthesia Airway Planned: Natural Airway Monitors Used: Standard Monitors
--- NOTE | 2025-05-11 08:15 | SKI_PTH ---
PATIENT: Dagoberto May LOC: [facility] U#:[id number] AGE/SX: 84/M ROOM: RE05/11/[address]: Jennifer Londono MD : 1940 BED: DIS: 05/11/2025 SPEC #: [id number] RECD: 05/11/25 12:38 STATUS: RITA ESTRELLA #: [id number] MARGUERITE: 05/11/25 08:[address]: Jennifer Londono DEPT: Surgical Specimen RECD BY: Johnna Hoffman ENTERED: 05/11/25 12:39 SP TYPE: ADY ALVAREZ DR: Vivienne Wells, JOHN Tissues: 1 - SKIN BIOPSY(SHAVE/PUNCH) 2 - SKIN BIOPSY(SHAVE/PUNCH) Procedures: SKIN LEVEL 4 Comments: [id number]
[2025-05-11] MEDS: Lidocaine 1.5 % Pres-Free W/EPI 1/200,000 30 ML VIAL (08:28)
[2025-05-11] MEDS: Bupivacaine 0.5% Pres-Free W/EPI 30 ML VIAL (08:38)
--- NOTE | 2025-05-11 08:59 | W.PM.DSUDISC ---
Date of service: 05/11/25 Discharge Plan Disposition Patient Disposition: Home Condition: Stable Discharge Details Attending Provider: Jennifer Londono Primary Care Provider: Vivienne Wells Home Meds and New Rx's Prescriptions: Continued tiotropium bromide 2.5 mcg/actuation mist 2 puff inhalation DAILY roflumilast 500 mcg tablet 500 mcg PO DAILY rosuvastatin 10 mg tablet 10 mg PO DAILY Qty: 90 3RF amlodipine 10 mg tablet 10 mg PO DAILY Qty: 90 3RF albuterol sulfate 1.25 mg/3 mL solution for nebulization 1.25 mg inhalation QID PRN (Reason: shortness of breath or wheezing) Qty: 90 1RF CENTRUM SILVER TABLET 1 EACH tablet 1 tab PO DAILY epinephrine 0.3 mg/0.3 mL auto-injector 0.3 ml IM Q5-15M PRN (Reason: hypersensitivity reaction) Qty: 2 4RF fluticasone propion-salmeterol [Advair HFA] 230-21 mcg/actuation HFA aerosol inhaler 2 puff Inhalation BID Qty: 36 3RF albuterol sulfate 90 mcg/actuation HFA aerosol inhaler 2 puff Inhalation QID PRN (Reason: shortness of breath or wheezing) Qty: 3 3RF tamsulosin 0.4 mg capsule 0.4 mg PO DAILY Qty: 90 3RF lidocaine 5 % adhesive patch,medicated 1 patch topical DAILY PRN (Reason: back pain) Qty: 15 0RF Rx Instructions: leave on most painful area for up to 12 hrs Discharge Instructions Additional Instructions: Remove outer dressing from leg and shower in 48 hours. Wash gently over skin glue of the arm incision with soapy hands. Rinse, pat dry. Do not peel glue or submerge under water (no bathtub or pool). For the leg, undress the wound, and shower. There is packing in the wound that will fall out or get loose in the shower. Pull it out all the way in the shower and throw it away. Put a thin layer of bacitracin or triple antibiotic ointment on the wound and cover it with a bandage or piece of gauze. Rewrap the leg from toes to knee to compress it. Change the dressing in this way once a day on the leg. Ok to use arm and leg normally for activities of daily life. Avoid movements that stretch the skin open. Stand Alone Forms: Anesthesia Discharge Inst., [facility] ([facility]), Portal Information Referrals: Jennifer Londono MD [ [facility] STAFF PHYSICIAN, Surgery] - 05/27/25 1:30 pm Activity:: Activity as Tolerated Shower/Bathe:: 24 hours Diet:: As Tolerated Discharge Orders Discharge Orders: Discharge Order (Routine); Ordered 05/11/25 Ordered By: Jennifer Londono DS: Diagnosis Discharge Diagnosis (1) Skin lesion of right lower extremity: Status: Acute (2) Mass of right upper extremity: Status: Acute
--- NOTE | 2025-05-11 09:46 | W.ANESPOSTOP ---
Postoperative Evaluation Date, Time and Location Date Performed: 05/11/25 Time Performed: 09:46 Patient Location: Day Surgery Unit Vital Signs Most Recent Imported Vital Signs: Most Recent Vital Signs Temp Pulse Resp BP Pulse Ox 36.3 C L 69 16 150/64 H 93 05/11/25 09:23 05/11/25 09:23 05/11/25 09:23 05/11/25 09:23 05/11/25 09:23 Pain Score Most Recent Pain Score: Most Recent Pain Score Pain Level 0 05/11/25 09:23 Assessment Mental Status: Awake (Alert & Oriented to Patient Baseline) Airway and Respiratory Function: Patent airway with normal (patient baseline) respiratory exam Cardiovascular Function: Hemodynamically Stable Hydration Status: Adequately Hydrated Nausea & Vomiting: No Nausea or Vomiting Pain: Pt. Denies Any Pain Peripheral Nerve Block: Patient did not receive a nerve block
--- NOTE | 2025-05-11 14:47 | ROE_ITS ---
Operative Note Operative Note Refer to Anesthesia Record Procedure Description: Preoperative Diagnosis: R upper extremity soft tissue mass, right lower extremity hidradenoma Postoperative Diagnosis: R upper extremity soft tissue mass, right lower extremity hidradenoma Procedure: Excisional biopsy of right arm soft tissue mass, excision of right lower leg hidradenoma Surgeon: Jennifer Londono MD Workforce Management Analyst: Sergio Olea EBL: 5mL Anesthesia: MAC + local Specimen: 1. Right upper arm mass. 2. right leg skin lesion Complications: None Procedure Description: This is an 84-year-old patient who was evaluated in clinic for RUE mass. MRI showed atypical cystic mass lesion about 1.5cm in size, and biopsy was recommended. Given size less than 3cm, excisional biopsy was appropriate. He also has regrowth of a lesion on the right calf where the wound did not fully heal from excision earlier this year. We discussed excisional biopsy of RUE mass, and excision of the skin lesion of the leg with planned healing by secondary intention due to significant peripheral edema. See office note for details of consent. Informed consent was obtained and the patient was taken to the operating room. The patient was placed in left lateral decubitus position on the operating table. All pressure points were padded appropriately. Anesthesia was induced. The right upper arm was clipped, prepped, and draped in the usual sterile fashion. The riht lower leg was prepped and draped in the usual sterile fashion. Timeout was performed. Local anesthetic was infiltrated into the skin and subcutaneous tissues around the arm mass and the leg lesion. Arm mass was present in the posterior upper arm subcutaneous fat. It was palpable and the skin was marked. An incision over its location was made with a scalpel. Dissection with cautery was carefully carried down to the lesion. Lesion appeared pigmented and dark. It did resemble a contained hematoma. The lesion was removed with a margin of normal fat around it. The lesion was removed en bloc intact. Its final location was noted to be very near the dermis. The wound was irrigated clean. Hemostasis was assured. The subcutaneous tissues were reapproximated with interrupted 3-0 Vicryl suture. The skin was closed with interrupted 4-0 Monocryl sutures. Steri-Strips were applied to the clean and dry skin. Next the right leg lesion was approached. Local anesthetic was infiltrated around the lesion. A 15 blade scalpel was used to remove the 1 cm round growth of the right lower leg from the skin. It was removed down to subcutaneous fat. Point cautery was used for hemostasis. This wound was packed with quarter inch iodoform gauze. 4 x 4's were placed over the gauze. Kerlix gauze and Bar wrap were used to compress the leg from toes to knees over the wound site. All sponge and instrument counts were correct at the end of the case. The patient tolerated the procedure well. The patient woke from sedation in the operating room and transferred to the recovery room in stable condition. No complications. Date of Procedure: 05/11/25
== END 2025-05-11 10:10 | disposition home or self-care (01) ==
PROVIDERS: PCP Nurse Practitioner Family; Visit Provider Surgery
PROC: (CPT 11402; principal; 2025-05-11 07:30)
DX: D18.01 Hemangioma of skin and subcutaneous tissue (principal); D23.71 Other benign neoplasm of skin of right lower limb, including hip; E11.9 Type 2 diabetes mellitus without complications; J44.9 Chronic obstructive pulmonary disease, unspecified; I10 Essential (primary) hypertension; G47.33 Obstructive sleep apnea (adult) (pediatric)
CPT/HCPCS: 11402; 11401; 12031; 88305; J0690; J2003; J2704